=== PATIENT | female | born 1970 | race Caucasian/White ===

== ENCOUNTER 2016-05-03 15:18 | Emergency (ER) | payer MEDICAID ==
[2016-05-03] MEDS ORDERED: ONDANSETRON ODT 4 MG TABLET TL STA (16:09)
[2016-05-03] MEDS ORDERED: oxyCOD/ACETAMIN 5 MG/325 MG TABLET PO STA (16:09)
[2016-05-03] MEDS ORDERED: oxyCOD/ACETAMIN 5 MG/325 MG TABLET PO ONE (16:17)
[2016-05-03] MEDS ORDERED: ONDANSETRON ODT 4 MG TABLET ONE (16:17)
== END 2016-05-03 17:12 | disposition home or self-care (01) ==
DX: R10.13 Epigastric pain (principal); R10.12 Left upper quadrant pain; K92.1 Melena; Z87.19 Personal history of other diseases of the digestive system; Z90.49 Acquired absence of other specified parts of digestive tract; Z90.710 Acquired absence of both cervix and uterus; F17.200 Nicotine dependence, unspecified, uncomplicated
CPT/HCPCS: 36415; 80053; 83690; 85025; 99283; 99284; A9270; Q0162

== ENCOUNTER 2016-07-16 18:24 | Emergency (ER) | payer MEDICAID ==
[2016-07-16] MEDS ORDERED: HYDROcod/ACET 5/325 Prepack 6 PO STA (20:48)
[2016-07-16] MEDS ORDERED: HYDROcod/ACET 5/325 Prepack 6 PO ONE (20:50)
== END 2016-07-16 20:56 | disposition home or self-care (01) ==
DX: S30.1XXA Contusion of abdominal wall, initial encounter (principal); W22.03XA Walked into furniture, initial encounter; J45.909 Unspecified asthma, uncomplicated; Z87.19 Personal history of other diseases of the digestive system; Z87.442 Personal history of urinary calculi; F17.200 Nicotine dependence, unspecified, uncomplicated

== ENCOUNTER 2016-07-19 20:15 | Emergency (ER) | payer MEDICAID ==
[2016-07-19 20:37] VITALS: BP 113/73
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
[2016-07-19 21:15] LABS: BASOPHILS # (AUTO) 0.1 10^3/uL (0.0-0.1); EOSINOPHILS # (AUTO) 0.2 10^3/uL (0.0-0.7); EOSINOPHILS % (AUTO) 2.8 %; HCT - HEMATOCRIT 39.6 % (37.0-47.0); HGB - HEMOGLOBIN 13.3 g/dL (12.0-16.0); LYMPHOCYTES # (AUTO) 3.4 10^3/uL (1.5-3.5); LYMPHOCYTES % (AUTO) 49.5 %; MEAN CORPUSCULAR HEMOGLOBIN 27.2 pg (27.0-31.0); MEAN CORPUSCULAR HGB CONC 33.6 g/dL (32.0-36.0); MEAN CORPUSCULAR VOLUME 81.1 fL (81.0-99.0); MEAN PLATELET VOLUME 9.7 fL (7.9-10.8); MONOCYTES # (AUTO) 0.5 10^3/uL (0.0-1.0); MONOCYTES % (AUTO) 8.1 %; NEUTROPHILS # (AUTO) 2.6 10^3/uL (1.5-6.6); NEUTROPHILS % (AUTO) 38.6 %; NUCLEATED RED BLOOD CELLS AUTO 0.1 /100WBC; RED BLOOD COUNT 4.88 10^6/uL (4.20-5.40); RED CELL DISTRIBUTION WIDTH 14.7 % (12.0-15.0); UNCORRECTED WHITE BLOOD COUNT 6.8 x10^3/uL; WHITE BLOOD COUNT 6.8 x10^3/uL (4.8-10.8)
[2016-07-19 21:25] LABS: ALBUMIN/GLOBULIN RATIO 1.3 (1.0-2.2); BILIRUBIN,TOTAL 0.4 mg/dL (0.2-1.0); CALCIUM 8.9 mg/dL (8.5-10.3); CREATININE 0.7 mg/dL (0.4-1.0); POTASSIUM 3.7 mmol/L (3.5-5.0); TOTAL PROTEIN 6.6 g/dL (6.7-8.2)
[2016-07-19] MEDS ORDERED: oxyCOD/ACETAMIN 5 MG/325 MG TABLET PO STA (21:32)
[2016-07-19] MEDS ORDERED: oxyCOD/ACETAMIN 5 MG/325 MG TABLET PO ONE (21:35)
[2016-07-19] MEDS ORDERED: HYDROcod/ACETAM 5/325 MG TABLET PO STA (21:46)
[2016-07-19] MEDS ORDERED: HYDROcod/ACETAM 5/325 MG TABLET ONE (21:49)
== END 2016-07-19 22:06 | disposition home or self-care (01) ==
LOC: ED 20:15
DX: R10.11 Right upper quadrant pain (principal); S30.1XXA Contusion of abdominal wall, initial encounter; W22.03XA Walked into furniture, initial encounter; F17.200 Nicotine dependence, unspecified, uncomplicated
CPT/HCPCS: 36415; 80053; 83690; 85025; 99283; A9270

== ENCOUNTER 2016-09-13 13:13 | Outpatient (CLI) | payer MEDICAID ==
--- NOTE | 2016-09-13 15:29 | XRAY Report ---
TWO VIEW CHEST: 09/13/2016 CLINICAL INDICATION: Wheezing, smoking history. COMPARISON: 03/16/2007. FINDINGS: Frontal and lateral views of the chest demonstrate a normal cardiac silhouette. The lungs are clear. No effusion or pneumothorax is present. IMPRESSION: NORMAL CHEST. JOB #: [id number] EXT JOB #:[id number]
== END 2016-09-13 13:14 | disposition home or self-care (01) ==
LOC: DI.N 13:13
PROVIDERS: ATTEND Physician Assistant
DX: R06.02 Shortness of breath (principal); F17.210 Nicotine dependence, cigarettes, uncomplicated
CPT/HCPCS: 71020

== ENCOUNTER 2016-11-20 13:57 | Outpatient (CLI) | payer MEDICAID ==
[2016-11-20 19:02] LABS: BASOPHILS # (AUTO) 0.1 10^3/uL (0.0-0.1); BASOPHILS % (AUTO) 0.5 %; EOSINOPHILS # (AUTO) 0.2 10^3/uL (0.0-0.7); EOSINOPHILS % (AUTO) 1.9 %; HCT - HEMATOCRIT 44.7 % (37.0-47.0); HGB - HEMOGLOBIN 14.8 g/dL (12.0-16.0); LYMPHOCYTES # (AUTO) 3.6 10^3/uL (1.5-3.5); LYMPHOCYTES % (AUTO) 34.9 %; MEAN CORPUSCULAR HEMOGLOBIN 27.2 pg (27.0-31.0); MEAN CORPUSCULAR HGB CONC 33.2 g/dL (32.0-36.0); MEAN PLATELET VOLUME 10.2 fL (7.9-10.8); MONOCYTES # (AUTO) 0.8 10^3/uL (0.0-1.0); MONOCYTES % (AUTO) 7.8 %; NEUTROPHILS # (AUTO) 5.6 10^3/uL (1.5-6.6); NEUTROPHILS % (AUTO) 54.9 %; NUCLEATED RED BLOOD CELLS AUTO 0.1 /100WBC; RED BLOOD COUNT 5.46 10^6/uL (4.20-5.40); UNCORRECTED WHITE BLOOD COUNT 10.3 x10^3/uL; WHITE BLOOD COUNT 10.3 x10^3/uL (4.8-10.8)
[2016-11-20 19:24] LABS: ALBUMIN/GLOBULIN RATIO 1.5 (1.0-2.2); BILIRUBIN,TOTAL 0.9 mg/dL (0.2-1.0); BUN - BLOOD UREA NITROGEN 11 mg/dL (6-20); CALCIUM 9.4 mg/dL (8.5-10.3); CARBON DIOXIDE - CO2 25 mmol/L (21-32); CHLORIDE 106 mmol/L (101-111); CHOL/HDL RATIO 7.2 (<4.4); CHOLESTEROL 295 mg/dL; CREATININE 0.8 mg/dL (0.4-1.0); GFR - MDRD 78 (>89); GLUCOSE 95 mg/dL (70-100); HDL CHOLESTEROL 41 mg/dL; LDL/HDL RATIO 5.4 (<4.4); SODIUM 138 mmol/L (135-145); TOTAL PROTEIN 7.8 g/dL (6.7-8.2); TRIGLYCERIDES 158 mg/dL; VLDL CHOLESTEROL 32 mg/dL
== END 2016-11-20 13:58 | disposition home or self-care (01) ==
LOC: LAB.N 13:57
PROVIDERS: ATTEND Family Medicine
DX: F17.210 Nicotine dependence, cigarettes, uncomplicated (principal); K92.2 Gastrointestinal hemorrhage, unspecified; K51.90 Ulcerative colitis, unspecified, without complications
CPT/HCPCS: 36415; 80053; 80061; 85025

== ENCOUNTER 2017-01-21 13:17 | Emergency (ER) | payer MEDICAID ==
[2017-01-21] MEDS ORDERED: DEXAMETHASONE 10 MG/ML VIAL IVP STA (14:54)
[2017-01-21] MEDS ORDERED: diphenhydrAMINE INJ 50 MG/ML VIAL IVP STA (14:54)
[2017-01-21] MEDS ORDERED: FAMOTIDINE 20 MG/50 ML 50 ML IV ONE ×2 (14:54→15:02)
--- NOTE | 2017-01-21 14:55 | ED Physician Documentation ---
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 now she feels tight throat and SOA also recent cough fever and now residual soa since trip to [facility] no leg swelling Review of Systems Constitutional: reports: Fever (better now) Cardiac: denies: Chest pain / pressure Respiratory: reports: Dyspnea, Cough GI: denies: Abdominal Pain, Nausea, Vomiting : denies: Now EGA (not now) Musculoskeletal: denies: Extremity swelling Neurologic: denies: Generalized weakness Endocrine: denies: Easy bruising / bleeding Immunocompromised: denies: Immunocompromised PD PAST MEDICAL HISTORY - Past Medical History Cardiovascular: Other Respiratory: Asthma Neuro: Headache/migraine Endocrine/Autoimmune: None GI: Pancreatitis, Diverticulitis, Ulcerative colitis, Other : Kidney stones HEENT: None Psych: Anxiety, Bipolar disorder, Panic attacks, Claustrophobia Musculoskeletal: Osteoporosis Derm: None - Past Surgical History Past Surgical History: Yes General: Cholecystectomy, Appendectomy, Colonoscopy, EGD 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, 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 - Present Medications Home Medications: Ambulatory Orders Medication Instructions Recorded Confirmed Omeprazole [PriLOSEC] 20 mg PO BID 05/03/16 01/21/17 Promethazine [Phenergan] 25 mg PO Q4HR PRN 05/03/16 Cetirizine [ZyrTEC] 10 mg PO DAILY #3 tablet 01/21/17 predniSONE [Deltasone] 60 mg PO DAILY 3 Days tablet 01/21/17 - Allergies Allergies/Adverse Reactions: Allergies Allergy/AdvReac Type Severity Reaction Status Date / Time latex Allergy Mild Rash Verified 01/21/17 13:24 codeine [Codeine] Allergy Hives Verified 01/21/17 13:24 morphine Allergy Hives Verified 01/21/17 13:24 Penicillins Allergy Hives Verified 01/21/17 13:24 Sulfa (Sulfonamide Allergy Hives Verified 01/21/17 13:24 Antibiotics) aspirin AdvReac stomach Verified 01/21/17 13:24 sensitivity IV contrast Allergy anaphylaxis Uncoded 07/16/16 18:29 - Social History Does the pt smoke?: Yes Smoking Status: Current every day smoker Does the pt drink ETOH?: No Does the pt have substance abuse?: No - Immunizations Immunizations are current?: Yes - POLST Patient has POLST: No PD ED PE NORMAL - Vitals Vital signs reviewed: Yes - HEENT HEENT: Other (no oral edema) - Neck Neck: Supple, no meningeal sign - Cardiac Cardiac: RRR - Respiratory Respiratory: No respiratory distress, Other (no wheeze) - Abdomen Abdomen: Soft, Non tender - Derm Derm: Normal color, Other (no hives) - Extremities Extremities: No deformity, Normal ROM s pain, No edema, No calf tenderness / cord - Neuro Neuro: Alert and oriented X 3 Results - Vitals Vitals: Vital Signs - 24 hr 01/21/17 01/21/17 13:20 15:59 Temperature 36.7 C Heart Rate 90 61 Respiratory 22 16 Rate Blood Pressure 113/74 100/66 O2 Saturation 98 97 Oxygen O2 Source Room air - Rads (name of study) CXR Radiology: See rad report (NACPD) PD MEDICAL DECISION MAKING - ED course ED course: no lip tongue uvual edema no wheeze or stridor - so started with ebnadryl dex pepcid - no epi at this time also CXR for recent fever cough pt better with meds Departure - Departure Disposition: 01 Home, Self Care Clinical Impression: Allergic reaction Qualifiers: Encounter type: initial encounter Qualified Code(s): T78.40XA - Allergy, unspecified, initial encounter URI (upper respiratory infection) Qualifiers: URI type: unspecified viral URI Qualified Code(s): J06.9 - Acute upper respiratory infection, unspecified; B97.89 - Other viral agents as the cause of diseases classified elsewhere; B97.89 - Other viral agents as the cause of diseases classified elsewhere Condition: Good Instructions: ED Allergic Reaction General Other Prescriptions: Cetirizine [ZyrTEC] 10 mg PO DAILY #3 tablet predniSONE [Deltasone] 60 mg PO DAILY 3 Days tablet Comments: The chest xray was fine. Recommend you take the zyrtec and prednisone for three more days Always carry your epi pen Return if worse
[2017-01-21] MEDS ORDERED: diphenhydrAMINE INJ 50 MG/ML VIAL ONE (15:02)
[2017-01-21] MEDS ORDERED: DEXAMETHASONE 10 MG/ML VIAL ONE (15:02)
[2017-01-21] MEDS ORDERED: SODIUM CHLORIDE 0.9% 1,000 ML IV ONE (15:10)
--- NOTE | 2017-01-21 16:07 | XRAY Preliminary Report ---
Exam: XR CHEST 2 VIEW PA/LAT IMPRESSION: Stable, unremarkable exam. RADI SITE ID: [id number]
--- NOTE | 2017-01-21 16:15 | XRAY Report ---
EXAM: CHEST RADIOGRAPHY EXAM DATE: 01/21/2017 03:36 PM. CLINICAL HISTORY: Chronic cough. Recent shortness of breath and fever. COMPARISON: 09/13/2016. TECHNIQUE: 2 views. FINDINGS: Lungs/Pleura: Minimal scarring left base. No new focal opacities evident. No pleural effusion. No pne umothorax. Normal volumes. Mediastinum: Heart and mediastinal contours are unremarkable. Other: Cholecystectomy. IMPRESSION: Stable, unremarkable exam. [facility] Referring Provider Line: [phone] SITE ID: [id number]
[2017-01-21 17:24] VITALS: BP 128/66
== END 2017-01-21 17:22 | disposition home or self-care (01) ==
LOC: ED 13:17
DX: J30.81 Allergic rhinitis due to animal (cat) (dog) hair and dander (principal); J06.9 Acute upper respiratory infection, unspecified; B97.89 Other viral agents as the cause of diseases classified elsewhere; F17.200 Nicotine dependence, unspecified, uncomplicated
CPT/HCPCS: 71020; 96361; 96365; 96375; 99283; 99284

== ENCOUNTER 2017-03-04 17:13 | Outpatient (CLI) | payer MEDICAID ==
--- NOTE | 2017-03-06 12:23 | Ultrasound Report ---
DATE OF SERVICE: 03/04/2017 RIGHT UPPER QUADRANT ULTRASOUND: 03/04/2017 CLINICAL INDICATION: Right upper quadrant pain. COMPARISON: CT 07/16/2016. TECHNIQUE: Real-time scanning was performed with customer service representative teacher static images obtained. FINDINGS: The liver measures 13.9 cm. Hepatic echotexture is normal. No intrahepatic biliary dilatation is present. The common bile duct measures 8 mm. The patient is status post cholecystectomy. The right kidney measures 9.8 cm, and demonstrates no hydronephrosis. No free fluid is present. In the right upper quadrant, just superior to the patient's cholecystectomy scar is a likely small hernia, with neck measuring 4 mm. No bowel herniation was identified. This site did correlate with the patient's region of maximal tenderness. IMPRESSION: Likely tiny anterior abdominal wall hernia just superior to the patient's cholecystectomy scar in the right upper quadrant. No evidence of focal liver lesion or biliary dilatation. TD: 03/05/2017 09:48 ARACELY
== END 2017-03-04 17:14 | disposition home or self-care (01) ==
LOC: DI 17:13
PROVIDERS: ATTEND Family Medicine
DX: R19.01 Right upper quadrant abdominal swelling, mass and lump (principal); R10.11 Right upper quadrant pain
CPT/HCPCS: 76705

== ENCOUNTER 2017-05-02 14:56 | Emergency (ER) | payer MEDICAID ==
[2017-05-02] MEDS ORDERED: DEXAMETHASONE 10 MG/ML VIAL IM STA (15:23)
[2017-05-02] MEDS ORDERED: EPINEPHrine 1 MG/ML AMP IM STA (15:23)
--- NOTE | 2017-05-02 15:29 | ED Physician Documentation ---
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 She had mild facial swelling last night and today had more shortness of breath and facial swelling and rash which somewhat improved after home administration of Benadryl.) Review of Systems Constitutional: denies: Fever, Chills Nose: denies: Rhinorrhea / runny nose, Congestion Throat: denies: Sore throat Cardiac: denies: Chest pain / pressure, Palpitations Respiratory: denies: Dyspnea, Cough PD PAST MEDICAL HISTORY - Past Medical History Cardiovascular: Other Respiratory: Asthma Neuro: Headache/migraine Endocrine/Autoimmune: None GI: Pancreatitis, Diverticulitis, Ulcerative colitis, Other : Kidney stones HEENT: None Psych: Anxiety, Bipolar disorder, Panic attacks, Claustrophobia Musculoskeletal: Osteoporosis Derm: None - Past Surgical History Past Surgical History: Yes General: Cholecystectomy, Appendectomy, Colonoscopy, EGD 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, 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 - Present Medications Home Medications: Ambulatory Orders Medication Instructions Recorded Confirmed Omeprazole [PriLOSEC] 20 mg PO BID 05/03/16 01/21/17 Promethazine [Phenergan] 25 mg PO Q4HR PRN 05/03/16 Cetirizine [ZyrTEC] 10 mg PO DAILY #3 tablet 01/21/17 predniSONE [Deltasone] 60 mg PO DAILY 3 Days tablet 01/21/17 predniSONE [Deltasone] 60 mg PO DAILY 5 Days tablet 05/02/17 - Allergies Allergies/Adverse Reactions: Allergies Allergy/AdvReac Type Severity Reaction Status Date / Time latex Allergy Mild Rash Verified 01/21/17 13:24 codeine [Codeine] Allergy Hives Verified 01/21/17 13:24 morphine Allergy Hives Verified 01/21/17 13:24 Penicillins Allergy Hives Verified 01/21/17 13:24 Sulfa (Sulfonamide Allergy Hives Verified 01/21/17 13:24 Antibiotics) aspirin AdvReac stomach Verified 01/21/17 13:24 sensitivity IV contrast Allergy anaphylaxis Uncoded 07/16/16 18:29 - Social History Does the pt smoke?: Yes Smoking Status: Current every day smoker Does the pt drink ETOH?: No Does the pt have substance abuse?: No - Immunizations Immunizations are current?: Yes - POLST Patient has POLST: No PD ED PE NORMAL - Vitals Vital signs reviewed: Yes - General General: Alert and oriented X 3, No acute distress - HEENT HEENT: PERRL, EOMI, Pharynx benign - Neck Neck: Supple, no meningeal sign, No bony TTP - Cardiac Cardiac: RRR, No murmur - Respiratory Respiratory: No respiratory distress, Clear bilaterally - Abdomen Abdomen: Non tender - Derm Derm: No rash - Neuro Neuro: Alert and oriented X 3, Normal speech - Psych Psych: Normal mood, Normal affect Results - Vitals Vitals: Vital Signs - 24 hr 05/02/17 05/02/17 05/02/17 15:07 16:01 16:36 Temperature 36.6 C Heart Rate 81 90 89 Respiratory 24 22 16 Rate Blood Pressure 113/74 102/89 H 116/71 O2 Saturation 99 97 99 05/02/17 17:27 Temperature 35.7 C L Heart Rate 83 Respiratory 22 Rate Blood Pressure 107/65 O2 Saturation 95 Oxygen O2 Source Room air PD MEDICAL DECISION MAKING - ED course ED course: 46-year-old woman with mild feline related anaphylaxis. She was administered epinephrine and dexamethasone IM here and observed for several hours with resolution of her symptoms. Counseled to avoid cats Departure - Departure Disposition: 01 Home, Self Care Clinical Impression: Allergic reaction Qualifiers: Encounter type: initial encounter Qualified Code(s): T78.40XA - Allergy, unspecified, initial encounter Condition: Good Record reviewed to determine appropriate education?: Yes Instructions: ED Allergic Reaction General Other Prescriptions: predniSONE [Deltasone] 60 mg PO DAILY 5 Days tablet Comments: Call your doctor to arrange a follow-up appointment, make the next available appointment. In the interim, return anytime if worse or if new symptoms develop. Discharge Date/Time: 05/02/17 17:31
[2017-05-02 17:28] VITALS: BP 107/65
== END 2017-05-02 17:31 | disposition home or self-care (01) ==
LOC: ED 14:56
DX: T78.40XA Allergy, unspecified, initial encounter (principal); F17.200 Nicotine dependence, unspecified, uncomplicated; Z91.048 Other nonmedicinal substance allergy status
CPT/HCPCS: 96372; 99283

== ENCOUNTER 2017-05-04 23:55 | Observation (INO) | payer MEDICAID ==
--- NOTE | 2017-05-05 00:01 | ED Physician Documentation ---
History of Present Illness - Stated complaint Stated Complaint: CP,ABD PN,DIFFICULTY BREATHING - History obtained from History obtained from: Patient - History of Present Illness Timing: How many days ago (1-2) Pain level now: 5 Improved by: no ameliorating factors Worsened by: PO intake (not tolerating PO; attempts to take PO tonight resulted in N/V and worsening of abdominal pain) - Additonal information Additional information: T+R 3 days ago from this ED for allergic reaction to cats (this was a known allergy), was dyspneic but responded well to IM epinephrine and decadron. She presents at this time for nausea, vomiting, RUQ and low chest pain, and dyspnea. Review of Systems Constitutional: reports: Reviewed and negative Cardiac: reports: Chest pain / pressure. denies: Palpitations, Pedal edema, Calf pain Respiratory: reports: Dyspnea. denies: Cough, Wheezing GI: reports: Abdominal Pain, Nausea, Vomiting. denies: Constipation, Diarrhea : denies: Dysuria, Frequency Skin: reports: Reviewed and negative Musculoskeletal: reports: Reviewed and negative Neurologic: reports: Reviewed and negative PD PAST MEDICAL HISTORY - Past Medical History Cardiovascular: Other Respiratory: Asthma Neuro: Headache/migraine Endocrine/Autoimmune: None GI: Pancreatitis, Diverticulitis, Ulcerative colitis, Other : Kidney stones HEENT: None Psych: Anxiety, Bipolar disorder, Panic attacks, Claustrophobia Musculoskeletal: Osteoporosis Derm: None - Past Surgical History Past Surgical History: Yes General: Cholecystectomy, Appendectomy, Colonoscopy, EGD Ortho: Other /PRIMER CHARGER: Hysterectomy, Oophrectomy - Present Medications Home Medications: Ambulatory Orders Medication Instructions Recorded Confirmed Omeprazole [PriLOSEC] 20 mg PO BID 05/03/16 01/21/17 Promethazine [Phenergan] 25 mg PO Q4HR PRN 05/03/16 Cetirizine [ZyrTEC] 10 mg PO DAILY #3 tablet 01/21/17 predniSONE [Deltasone] 60 mg PO DAILY 3 Days tablet 01/21/17 predniSONE [Deltasone] 60 mg PO DAILY 5 Days tablet 05/02/17 - Allergies Allergies/Adverse Reactions: Allergies Allergy/AdvReac Type Severity Reaction Status Date / Time latex Allergy Mild Rash Verified 05/05/17 00:06 cat dander Allergy Anaphylaxis Verified 05/05/17 00:07 codeine [Codeine] Allergy Hives Verified 05/05/17 00:06 morphine Allergy Hives Verified 05/05/17 00:06 Penicillins Allergy Hives Verified 05/05/17 00:06 Sulfa (Sulfonamide Allergy Hives Verified 05/05/17 00:06 Antibiotics) aspirin AdvReac stomach Verified 05/05/17 00:06 sensitivity IV contrast Allergy anaphylaxis Uncoded 05/05/17 00:06 - Social History Does the pt smoke?: Yes Smoking Status: Current every day smoker Does the pt drink ETOH?: No Does the pt have substance abuse?: No - Immunizations Immunizations are current?: Yes - POLST Patient has POLST: No PD ED PE NORMAL - Vitals Vital signs reviewed: Yes - General General: Alert and oriented X 3, No acute distress, Well developed/nourished - HEENT HEENT: PERRL, EOMI, Other (tacky/pasty mucous membranes) - Neck Neck: Supple, no meningeal sign - Cardiac Cardiac: RRR, No murmur - Respiratory Respiratory: No respiratory distress, Clear bilaterally - Abdomen Abdomen: Soft, Non distended, Other (TTP diffusely without guarding or rebound) - Back Back: No CVA TTP - Derm Derm: Normal color, Warm and dry - Extremities Extremities: No edema Results - Vitals Vitals: Vital Signs - 24 hr 05/05/17 05/05/17 05/05/17 00:00 00:10 00:30 Temperature 36.3 C L Heart Rate 77 75 Respiratory 18 22 16 Rate Blood Pressure 131/71 H O2 Saturation 96 96 05/05/17 05/05/17 05/05/17 01:18 01:45 02:12 Temperature Heart Rate 77 73 73 Respiratory 16 16 Rate Blood Pressure 131/75 H 115/66 120/77 O2 Saturation 96 95 95 Oxygen O2 Source Room air - EKG (time done) No standard instances Rate: Rate (enter#) (81) Rhythm: NSR [place]: Normal Intervals: Normal [place] QRS: LVH Ischemia: Normal ST segments Other comments: Other comments (artifact simulating "sawtooth" p waves. This is not present on coin dealer) Computer interpretation: Disagree with computer (disagree with atrial fibrillation) - Labs Labs: Laboratory Tests 05/05/17 05/05/17 05/05/17 00:36 00:36 00:36 WBC 16.4 H RBC 4.97 Hgb 13.5 Hct 40.1 MCV 80.8 L MCH 27.2 MCHC 33.7 RDW 14.9 Plt Count 240 MPV 9.5 Neut # 10.5 H Lymph # 4.3 H [place] # 1.4 H Eos # 0.1 Baso # 0.2 H Absolute Nucleated RBC 0.00 Nucleated RBC % 0.0 D-Dimer 211.8 Sodium 137 Potassium 3.2 L Chloride 107 Carbon Dioxide 21 Anion Gap 9.0 BUN 10 Creatinine 0.8 Estimated GFR (MDRD) 78 L Glucose 107 H Calcium 9.1 Total Bilirubin 0.5 AST 22 ALT 21 Alkaline Phosphatase 71 Troponin I Total Protein 7.1 Albumin 4.0 Globulin 3.1 Albumin/Globulin Ratio 1.3 Lipase 17 L Urine Color Urine Clarity Urine pH Ur Specific [place] Urine Protein Urine Glucose (UA) Urine Ketones Urine Occult Blood Urine Nitrite Urine Bilirubin Urine Urobilinogen Ur Leukocyte Esterase Urine RBC Urine WBC Ur Squamous Epith Cells Urine Bacteria Ur Microscopic Review Urine Culture Comments 05/05/17 05/05/17 00:36 01:11 WBC RBC Hgb Hct MCV MCH MCHC RDW Plt Count MPV Neut # Lymph # [place] # Eos # Baso # Absolute Nucleated RBC Nucleated RBC % D-Dimer Sodium Potassium Chloride Carbon Dioxide Anion Gap BUN Creatinine Estimated GFR (MDRD) Glucose Calcium Total Bilirubin AST ALT Alkaline Phosphatase Troponin I < 0.04 Total Protein Albumin Globulin Albumin/Globulin Ratio Lipase Urine Color YELLOW Urine Clarity CLEAR Urine pH 7.0 Ur Specific [place] <=1.005 Urine Protein NEGATIVE Urine Glucose (UA) NEGATIVE Urine Ketones NEGATIVE Urine Occult Blood NEGATIVE Urine Nitrite NEGATIVE Urine Bilirubin NEGATIVE Urine Urobilinogen 0.2 (NORMAL) Ur Leukocyte Esterase TRACE H Urine RBC None Seen Urine WBC 0-3 Ur Squamous Epith Cells NONE SEEN Urine Bacteria None Seen Ur Microscopic Review INDICATED Urine Culture Comments INDICATED - Rads (name of study) CT A/P Radiology: Prelim report reviewed, See rad report PD MEDICAL DECISION MAKING - ED course Complexity details: reviewed old records, reviewed results, re-evaluated patient , considered differential, d/w patient ED course: Patient declined pain medication repeatedly, says that, generally, strong pain medication has always made her pain worse. She asked for "something very mild", and I offered toradol which she accepts. She had taken 50mg phenergan PO HOP STRAINER without relief of her nausea, and given 12.5mg IV phenergan here. On reevaluation, after tests resulted, she says she still has significant nausea and had vomited again since I was last in room. She says her pain has improved. I recommended GI cocktail, but she says she is too nauseas to try anything PO. Given IV zofran and IV fluids, will admit for further IV hydration and PRN antinauseants. There is a chronic component to much of her symptoms (it is unclear if some or all of her symptoms are recurrent), and I explained to her that if she cannot keep anything down, it would be reasonable at this point to admit her to the hospital, but that achieving a diagnosis/etiology is not a realistic goal for this admission, given the chronicity and extensive testing she describes has happened in the past. Admission would be for symptom control; she expresses understanding of this to me. Departure - Departure Disposition: ED Place in Observation Clinical Impression: Vomiting Abdominal pain Qualifiers: Abdominal location: generalized Qualified Code(s): R10.84 - Generalized abdominal pain Condition: Stable Discharge Date/Time: 05/05/17 04:25
[2017-05-05] MEDS ORDERED: IPRATROPIUM/ALBUTEROL 3 ML NEB INH ONE (00:10)
[2017-05-05] MEDS ORDERED: IPRATROPIUM/ALBUTEROL 3 ML NEB INH STA (00:26)
[2017-05-05 00:48] LABS: BASOPHILS # (AUTO) 0.2 10^3/uL (0.0-0.1); BASOPHILS % (AUTO) 0.9 %; EOSINOPHILS # (AUTO) 0.1 10^3/uL (0.0-0.7); EOSINOPHILS % (AUTO) 0.4 %; HGB - HEMOGLOBIN 13.5 g/dL (12.0-16.0); LYMPHOCYTES # (AUTO) 4.3 10^3/uL (1.5-3.5); LYMPHOCYTES % (AUTO) 26.3 %; MEAN CORPUSCULAR HEMOGLOBIN 27.2 pg (27.0-31.0); MEAN CORPUSCULAR HGB CONC 33.7 g/dL (32.0-36.0); MEAN CORPUSCULAR VOLUME 80.8 fL (81.0-99.0); MEAN PLATELET VOLUME 9.5 fL (7.9-10.8); MONOCYTES # (AUTO) 1.4 10^3/uL (0.0-1.0); MONOCYTES % (AUTO) 8.4 %; NEUTROPHILS # (AUTO) 10.5 10^3/uL (1.5-6.6); PLT - PLATELET COUNT 240 10^3/uL (130-450); RED BLOOD COUNT 4.97 10^6/uL (4.20-5.40); RED CELL DISTRIBUTION WIDTH 14.9 % (12.0-15.0); WHITE BLOOD COUNT 16.4 x10^3/uL (4.8-10.8)
[2017-05-05 00:52] LABS: ALBUMIN/GLOBULIN RATIO 1.3 (1.0-2.2); BILIRUBIN,TOTAL 0.5 mg/dL (0.2-1.0); CALCIUM 9.1 mg/dL (8.5-10.3); CREATININE 0.8 mg/dL (0.4-1.0); TOTAL PROTEIN 7.1 g/dL (6.7-8.2)
[2017-05-05 01:21] LABS: BILIRUBIN,URINE NEGATIVE (NEGATIVE); GLUCOSE, URINE (UA) NEGATIVE (NEGATIVE); KETONES,URINE (UA) NEGATIVE (NEGATIVE); LEUKOCYTE ESTERASE, URINE TRACE (NEGATIVE); NITRITE,URINE NEGATIVE (NEGATIVE); OCCULT BLOOD,URINE NEGATIVE (NEGATIVE); PROTEIN,URINE NEGATIVE (NEGATIVE); UROBILINOGEN,URINE 0.2 (NORMAL) E.U./dL (NORMAL)
[2017-05-05 01:25] LABS: CLARITY,URINE CLEAR (CLEAR)
[2017-05-05 01:51] LABS: BACTERIA,URINE None Seen /HPF (None Seen); RBC,URINE None Seen /HPF (0-5); SQUAMOUS EPITHELIAL CELL,UR NONE SEEN (<= Few)
[2017-05-05] MEDS ORDERED: PROMETHAZINE INJ 12.5 MG in SODIUM CHLORIDE 0.9% 50 ML IV STA (02:14)
--- NOTE | 2017-05-05 02:46 | CT Report ---
EXAM: CT ABDOMEN AND PELVIS EXAM DATE: 05/05/2017 02:34 AM. CLINICAL HISTORY: Abdominal pain. COMPARISONS: 07/16/2016. TECHNIQUE: Routine helical CT imaging was performed through the abdomen and pelvis. IV contrast: None . Enteric contrast: No. Reconstructions: Coronal and sagittal. In accordance with CT protocol optimization, one or more of the following dose reduction techniques w ere utilized for this exam: automated exposure control, adjustment of mA and/or KV based on patient s ize, or use of iterative reconstructive technique. FINDINGS: Lung Bases: Unremarkable. Liver: No focal lesion identified on this noncontrast examination. Gallbladder/Bile Ducts: Status post cholecystectomy. Spleen: Normal. Pancreas: Normal. Adrenal Glands: Normal. Kidneys: Right kidney is unremarkable. Nonobstructing 8 x 6 mm stone in the left kidney. Peritoneal Cavity/Bowel: Colonic diverticula without evidence of diverticulitis. Moderate stool in th e colon. No bowel obstruction seen. No free air or free fluid. No lymphadenopathy. Appendix is not se en. No evidence of appendicitis. Pelvic Organs: Uterus is not seen. Visualized pelvic organs are otherwise unremarkable. Vasculature: No aneurysms or other significant abnormality. Bones: No significant abnormality. Other: None. IMPRESSION: 1. No acute inflammatory or obstructive process seen in the abdomen or pelvis. 2. Nonobstructing 8 x 6 mm left renal stone. [facility] Referring Provider Line: [phone] SITE ID: [id number]
--- NOTE | 2017-05-05 02:46 | CT Preliminary Report ---
Exam: CT ABDOMEN/PELVIS W/O IMPRESSION: 1. No acute inflammatory or obstructive process seen in the abdomen or pelvis. 2. Nonobstructing 8 x 6 mm left renal stone. [facility] SITE ID: [id number]
[2017-05-05] MEDS ORDERED: SODIUM CHLORIDE 0.9% 1,000 ML IV STA (03:33)
[2017-05-05] MEDS ORDERED: ONDANSETRON 4 MG/2 ML VIAL IVP STA (03:33)
[2017-05-05] MEDS ORDERED: KETOROLAC 60 MG/2 ML VIAL IVP STA (03:45)
[2017-05-05] MEDS ORDERED: ALBUTEROL NEB 2.5 MG/3 ML INH PRN (03:48)
[2017-05-05] MEDS ORDERED: PROCHLORPERAZINE 10 MG/2 ML VIAL IVP PRN (03:49)
[2017-05-05] MEDS ORDERED: METOCLOPRAMIDE 10 MG/2 ML VIAL IVP PRN (03:49)
[2017-05-05] MEDS ORDERED: PANTOPRAZOLE 40 MG VIAL IVP SCH (05:00)
[2017-05-05] MEDS ORDERED: methylPREDNISolone SUCCINATE 40 MG/ML VIAL IVP SCH (05:00)
[2017-05-05] MEDS: SODIUM CHLORIDE 0.9% 1,000 ML IV SCH ×2 (05:34→09:11)
[2017-05-05] MEDS: SODIUM CHLORIDE FLUSH 0.9% 10 ML SYRINGE IVP PRN ×2 (05:42→05:45)
--- NOTE | 2017-05-05 07:05 | HISTORY & PHYSICAL EXAMINATION ---
DATE OF SERVICE: Physician: Miranda Olivarez MD PRIMARY CARE PROVIDER: Joaquin Romo MD FRONT OFFICE MEDICAL ASSISTANT: Dr. Huerta [facility] PROFESSIONAL: Through [facility]. ADMITTING PROVIDER: Miranda Olivarez MD CHIEF COMPLAINT: Epigastric pain with nausea and vomiting. HISTORY OF PRESENT ILLNESS: This middle-aged white female who has a long history of GI problems. Looking back in the medical record from [facility] dating to 2011, she has multiple encounters through the emergency room for abdominal pain, right upper quadrant abdominal pain, rectal bleeding, and nausea and vomiting. She has Phenergan at home on a regular basis and takes it every day. No clear etiology of her abdominal discomfort has ever been found. For her history of epigastric pain and rectal bleeding, she did undergo an EGD and colonoscopy 07/30/2013. Her gastric antrum biopsies were normal. The esophagus had minimal reflux esophagitis at the GE junction. Her terminal ileum was normal. She had a tubular adenoma in the bowel, but no high grade dysplasia and the rest of her bowel was completely normal. Imaging studies for this abdominal pain have been an abdomen and pelvis CT 09/28, 10/15/2013, 07/16/2016, abdominal ultrasound 03/04/2017, and a CT of the abdomen and pelvis [facility]. These have been all unremarkable other than she has a very large kidney stone on the left side, nonobstructing. She has diverticulosis, no itis. All other organs appear normal. Liver with without ductal dilatation. With this current episode she had just been recently seen in the emergency room for an allergic reaction to cats. She went to go babysit her granddaughter and they have a cat. She ended up being in the emergency room 2 days ago and received steroids and DuoNebs. She says that today, she began having severe agonizing epigastric abdominal pain that was nonradiating. This superimposed a new type of severe nausea on her chronic nausea. There has been no hematemesis. No melanotic stool. Because she was unable to control her nausea and vomiting and the pain was so severe, she came to the emergency room. She is adamant that she does not want pain medicine stronger than Toradol. Her labs are normal. Vital signs are normal. In spite of Phenergan in the emergency room with IV fluids, patient remains with severe nausea after 3 hours. We are now placing her in observation for control of this nausea and vomiting. PAST MEDICAL HISTORY 1. G8, P1. Status post total abdominal hysterectomy and oophorectomy. 2. Allergic asthma. 3. Headaches and migraine. 4. Chronic abdominal pain of numerous etiologies. She states that she has had pancreatitis, diverticulitis, ulcerative colitis in the past. However, recent colonoscopy disputes that via pathologic findings on 07/2013. CT of abdomen shows a normal pancreas without calcification. She is followed by Dr. Huerta of [facility], Gastroenterology. 5. History of nephrolithiasis. 6. History of anxiety, bipolar disorder, panic attacks, claustrophobia. She is followed by [facility]. She says that she does not take medications and she does this through lifestyle management and diet and focusing on good imagery. 7. Osteoporosis. PAST SURGICAL HISTORY 1. Status post cholecystectomy. 2. Status post appendectomy. ALLERGIES: SHE IS ALLERGIC TO 1. LATEX. 2. CODEINE. 3. MORPHINE. 4. PENICILLIN. 5. SULFA. 6. ASPIRIN. 7. IV CONTRAST. MEDICATIONS 1. Omeprazole 20 b.i.d. 2. Phenergan 25 mg p.o. q. 4 hours p.r.n. 3. She is on steroids and tapering Deltasone for her asthma for the last 2 days. SOCIAL HISTORY: She is a 1-1/2 pack per day pack smoker, started at the age of 14. She usually does 1 pack per day. Stopped 2 days ago because of the asthma. She has no history of alcohol abuse. She said she may have been binge drinking in her 20s, but she had no real pepe with that, so stopped somewhere in her early 20s. 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 She became disabled from her nausea and vomiting and psychiatric illness in 2004. She lives in a home with her father. It is his house. She is not always completely independent with activities of daily living. She says that she has frequent episodes of syncope, dizziness, and sometimes has to crawl to the bathroom or friends help her. She denies any history of recreational substance abuse. FAMILY HISTORY: Dad is 68 and has had bypass surgery, but has no history of hypertension, diabetes, psychiatric illness. Mom of anaphylaxis a few years ago and her siblings, one of them has diabetes. Her one daughter is healthy. REVIEW OF SYSTEMS CONSTITUTIONAL: She describes a generalized misery of chronic abdominal pain, nausea, intermittent rectal bleeding. Weight 64 kilos November 2012, 69 kilos 02/2015 , 64 kilos 01/2017 and 65 kilos this month. She denies sweats, fevers, chills. ENT: Occasional blurred vision, headaches, occasional numb mouth. PULMONARY: Wheezing is always related to allergies. Never had to be intubated for it. Never had to be on chronic medications for it. Denies phlegm production, fever, chills, chest congestion with this. CARDIOVASCULAR: Denies murmurs, heart disease, palpitations, orthopnea, and exercise tolerance is very poor to begin with, so she really cannot gauge. GASTROINTESTINAL: Positive as above. GENITOURINARY: Denies urgency, frequency, dysuria, hematuria. No vaginal discharge. JOINTS: Occasional aches and pains with stiffness in the morning, but nothing severe. No recent change in status. SKIN: Unchanged. No lesions or rashes. PSYCHIATRIC: Sees [facility] on a regular basis, counselor is Jeanette. Does not take medication. Denies suicidal ideation. 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 PHYSICAL EXAMINATION VITAL SIGNS: Temperature is 36.3, pulse of 66, blood pressure is 113/68, respirations 16, 97% on room air. GENERAL: She is a thin, drawn out looking, middle-aged female with a furrowed brow, circles under her eyes, pale. A friend of hers is at the bedside. NECK: Unremarkable other than mildly dry lips. Normal facial symmetry. Normal speech. Neck is supple. LUNGS: Clear to auscultation and percussion. There is no wheezing tonight. HEART: PMI normally placed with a regular rate and rhythm. ABDOMEN: Soft, normal bowel sounds. Nondistended. However, with even light touch of her anterior abdominal wall, she grimaces with pain, clenches her fist and becomes rigid as an ironing board during palpation of her belly. The pain is diffuse. No rebound. No masses. EXTREMITIES: Without clubbing, cyanosis or edema. There are no effusions of joints. NEUROLOGIC: She is alert and oriented to person, place and time. No focal deficits. Can follow 2-step commands. LABORATORY DATA: Sodium 137, potassium 3.2, BUN 10, creatinine 0.8, random glucose 107. Liver enzymes normal. Troponin less than 0.04. Review of her labs shows to have hypertriglyceridemia and hyperlipidemia, on 11/20/2016, with triglycerides 158, cholesterol 295, LDL 222. Review of all of her lipases in our emergency room from 2013 to now are normal. Cortisol response to ACTH is normal, 11/30/2015. Urinalysis is normal today. H pylori antibody negative 12/15/2013 and 01/29/2016. White cell count is elevated today at 16.4 on her steroids. Hemoglobin 13.5, hematocrit 40.1, platelets 240. CT of the abdomen and pelvis today shows normal gallbladder and bile ducts. Status post cholecystectomy. The spleen is normal. Pancreas is normal. Adrenal glands normal. She has a nonobstructing 8 x 6 mm stone in the left kidney. She has chronic diverticulosis without evidence of diverticulitis. Moderate stool in the bowel. Uterus is not seen. ASSESSMENT AND PLAN 1. Acute on chronic nausea and vomiting. Symptoms unable to be controlled in the emergency room. She has a long history of this complaint in the medical record. I do not think we are going to be able to offer any solutions to her chronic problem with this observation stay. That has been carefully explained to her. Nevertheless, we will provide her with Compazine, Reglan p.r.n. IV fluids. Attestation that she will be admitted for less than 96 hours. At 96 hours she will be evaluated for discharge or transfer. 2. Epigastric abdominal pain associated with nausea and vomiting. This is in a patient with chronic abdominal pain. Again, she has had an EGD, CTs of the abdomen, ultrasound. She had her gallbladder, appendix, and uterus taken out. Remote possibility that it is due from new gastritis secondary to steroids. Start her on proton pump inhibitors IV. No pain management at her request other than Tylenol or Toradol. 3. FULL CODE status. She states that if she does end up having significant cognitive deficits after resuscitation, she wants us to let her go. 4. Deep venous thrombosis prophylaxis will be compression stockings. TD: 05/05/2017 07:03 [facility]
[2017-05-05 07:57] VITALS: BP 106/62
[2017-05-05] MEDS ORDERED: ACETAMINOPHEN 325 MG TABLET PO PRN (08:20)
[2017-05-05] MEDS ORDERED: KETOROLAC 10 MG TABLET PO PRN (08:20)
[2017-05-05] MEDS ORDERED: SODIUM CHLORIDE FLUSH 0.9% 10 ML SYRINGE IVP SCH (09:00)
[2017-05-05] MEDS ORDERED: POLYETHYLENE GLYCOL 3350 17 GM PACKET PO SCH (09:00)
--- NOTE | 2017-05-05 11:54 | Discharge Plan ---
Discharge Plan Disposition: 01 Home, Self Care Condition: Good Diet: Regular Activity Restrictions: No Restrictions Shower Restrictions: No Driving Restrictions: No Weight Bearing: Full Weight Additional Instructions or Follow Up instructions: You were admitted for nausea and vomiting which as subsided. Please see your PCP in one week. No Smoking: If you smoke, Please STOP! Call for help. Follow-up with: Joaquin Romo MD [Primary Care Provider] -
--- NOTE | 2017-05-05 17:20 | DISCHARGE SUMMARY ---
Discharge Summary Admit Date: 05/04/17 Discharge Date: 05/05/17 Discharging Provider: CLARISA Henao Primary Care Provider: Joaquin Romo Code Status: Attempt Resuscitation Condition at Discharge: Good Discharge Disposition: 01 Home, Self Care - DIAGNOSES Admission Diagnoses: Nausea with vomiting, unspecified (R11.2) Nausea (R11.0) Epigastric pain (R10.13) Unspecified abdominal pain (R10.9) Discharge Diagnoses with Status of Each Condition: Nausea with vomiting, unspecified (R11.2) Nausea (R11.0) Epigastric pain (R10.13) Unspecified abdominal pain (R10.9) - HPI History of Present Illness: Laurel Stark is a 46-year old female with a past medical history of G8, P1 s/p hysterectomy and oophorectomy, asthma, headaches, migraines, chronic abdominal pain, diverticulitis, ulcerative colitis, nephrolithiasis, anxiety disorder, depression, bipolar, panic disorder, claustrophobia, and osteoporosis. Patient is known to have several ED visits. She presented this time for abdominal pain. She was watched overnight and sent home the next AM. This stay was uneventful. - ALLERGIES Allergies/Adverse Reactions: Allergies Allergy/AdvReac Type Severity Reaction Status Date / Time latex Allergy Mild Rash Verified 05/05/17 00:06 cat dander Allergy Anaphylaxis Verified 05/05/17 00:07 codeine [Codeine] Allergy Hives Verified 05/05/17 00:06 morphine Allergy Hives Verified 05/05/17 00:06 Penicillins Allergy Hives Verified 05/05/17 00:06 Sulfa (Sulfonamide Allergy Hives Verified 05/05/17 00:06 Antibiotics) aspirin AdvReac stomach Verified 05/05/17 00:06 sensitivity IV contrast Allergy anaphylaxis Uncoded 05/05/17 00:06 - MEDICATIONS Home Medications: Ambulatory Orders Medication Instructions Recorded Confirmed Omeprazole [PriLOSEC] 20 mg PO BID 05/03/16 05/05/17 Promethazine [Phenergan] 25 mg PO Q4HR PRN 05/03/16 05/05/17 Cetirizine [ZyrTEC] 10 mg PO DAILY #3 tablet 01/21/17 05/05/17 predniSONE [Deltasone] 60 mg PO DAILY 3 Days tablet 01/21/17 05/05/17 - PHYSICAL EXAM AT DISCHARGE General Appearance: positive: No acute distress, Alert, Anxious Eyes Bilateral: positive: Normal inspection, PERRL ENT: positive: ENT inspection nml Neck: positive: Nml inspection, No JVD, Trachea midline Respiratory: positive: Chest non-tender, No respiratory distress, Breath sounds nml Cardiovascular: positive: Regular rate & rhythm, No gallop, Decreased pulse(s) Peripheral Pulses: positive: 1+ Abdomen: positive: Tenderness, Guarding, Abnml bowel sounds Back: positive: Nml inspection Skin: positive: Color nml, No rash, Warm, Dry Extremities: positive: Non-tender, Full ROM, Nml appearance, No pedal edema Neurologic/Psychiatric: positive: Oriented x3, CN's nml (2-12), Motor nml, Sensation nml, Depressed mood/affect Reflexes: Bicep (R): 3+, Bicep (L): 3+ - LABS Result Diagrams: 05/05/17 00:36 05/05/17 00:36 - DIAGNOSTIC IMAGING Diagnostic Imaging Results: Final report reviewed Diagnostic Imaging Results Comments: EXAM: CT ABDOMEN AND PELVIS EXAM DATE: 05/05/2017 02:34 AM. CLINICAL HISTORY: Abdominal pain. COMPARISONS: 07/16/2016. TECHNIQUE: Routine helical CT imaging was performed through the abdomen and pelvis. IV contrast: None. Enteric contrast: No. Reconstructions: Coronal and sagittal. In accordance with CT protocol optimization, one or more of the following dose reduction techniques were utilized for this exam: automated exposure control, adjustment of mA and/or KV based on patient size, or use of iterative reconstructive technique. FINDINGS: Lung Bases: Unremarkable. Liver: No focal lesion identified on this noncontrast examination. Gallbladder/Bile Ducts: Status post cholecystectomy. Spleen: Normal. Pancreas: Normal. Adrenal Glands: Normal. Kidneys: Right kidney is unremarkable. Nonobstructing 8 x 6 mm stone in the left kidney. Peritoneal Cavity/Bowel: Colonic diverticula without evidence of diverticulitis. Moderate stool in the colon. No bowel obstruction seen. No free air or free fluid. No lymphadenopathy. Appendix is not seen. No evidence of appendicitis. Pelvic Organs: Uterus is not seen. Visualized pelvic organs are otherwise unremarkable. Vasculature: No aneurysms or other significant abnormality. Bones: No significant abnormality. Other: None. IMPRESSION: 1. No acute inflammatory or obstructive process seen in the abdomen or pelvis. 2. Nonobstructing 8 x 6 mm left renal stone. - FOLLOW UP Follow Up: Disposition: 01 Home, Self Care Condition: Good Diet: Regular Activity Restrictions: No Restrictions Shower Restrictions: No Driving Restrictions: No Weight Bearing: Full Weight Additional Instructions or Follow Up instructions: You were admitted for nausea and vomiting which as subsided. Please see your PCP in one week. - TIME SPENT Time Spent in Discharge (Minutes): 45
== END 2017-05-05 12:37 | disposition home or self-care (01) ==
LOC: ED 23:55 → OBS 05-05 03:46
PROVIDERS: ADMIT Specialist; ATTEND Nurse Practitioner
DX: R11.2 Nausea with vomiting, unspecified (principal); R10.13 Epigastric pain; N20.0 Calculus of kidney; Z87.442 Personal history of urinary calculi; J45.909 Unspecified asthma, uncomplicated; E78.5 Hyperlipidemia, unspecified; F17.210 Nicotine dependence, cigarettes, uncomplicated; F41.0 Panic disorder [episodic paroxysmal anxiety]; F31.9 Bipolar disorder, unspecified; F40.240 Claustrophobia; Z79.51 Long term (current) use of inhaled steroids; Z79.899 Other long term (current) drug therapy; E78.1 Pure hyperglyceridemia
CPT/HCPCS: 36415; 74176; 80053; 81001; 83690; 84484; 85025; 85379; 87086; 93005; 94640; 96361; 96365; 96375; 99284; G0378; J2765; J7040; J7620; 81003; 99285

== ENCOUNTER 2017-05-13 13:45 | Outpatient (CLI) | payer MEDICAID | END 2017-05-13 14:00 | disposition home or self-care (01) | LOC: RT.N 13:45 | PROVIDERS: ATTEND Family Medicine | DX: R07.89 Other chest pain (principal) | CPT/HCPCS: 93005 ==

== ENCOUNTER 2017-07-18 15:47 | Outpatient (CLI) | payer MEDICAID ==
--- NOTE | 2017-07-18 21:27 | XRAY Report ---
EXAM: RIGHT TOE RADIOGRAPHY EXAM DATE: 07/18/2017 03:55 PM. CLINICAL HISTORY: TOE PAIN, RIGHT. Right fifth toe. COMPARISON: Right foot 02/22/2016. TECHNIQUE: 3 views. FINDINGS: Tiny more chronic appearing bone fragment is seen at the lateral aspect of the distal fifth proximal phalanx. Tiny acute chip fracture is not excluded. Otherwise, no evidence for acute fracture. Minimal left fifth PIP osteoarthritis. Fifth digit soft tissue swelling could be present. Couple of screws a re again seen in the first metatarsal. No dislocation. IMPRESSION: Tiny more chronic appearing bone fragment is seen at the lateral aspect of the distal fif th proximal phalanx. Tiny acute chip fracture is not excluded. Otherwise, no evidence for acute fract ure. Minimal left fifth PIP osteoarthritis. Fifth digit soft tissue swelling could be present. [facility] Referring Provider Line: [phone] SITE ID: [id number]
== END 2017-07-18 15:48 | disposition home or self-care (01) ==
LOC: DI.N 15:47
PROVIDERS: ATTEND Family Medicine
DX: M79.674 Pain in right toe(s) (principal)
CPT/HCPCS: 73660

== ENCOUNTER 2017-08-06 13:14 | Outpatient (CLI) | payer MEDICAID ==
--- NOTE | 2017-08-10 11:08 | DEXA Report ---
DEXA: 08/06/2017 CLINICAL INDICATION: Osteoporosis. TECHNIQUE: Dual energy x-ray absorptiometry (DXA) was performed on a My [employer] system. Regions measured are the AP spine, femoral neck, and, if needed, forearm. COMPARISON: None. In accordance with the International Society for Clinical Densitometry (ISCD) guidelines, data from previous exams may be reanalyzed using current recommendations and techniques. This is done to allow a more accurate basis for comparison with the current study. FINDINGS Data for the lumbar spine is as follows: REGION BMD (g/cm/cm) T-SCORE Z-SCORE L1 0.805 -2.7 -2.7 L2 0.846 -2.9 -2.9 L3 0.862 -2.8 -2.8 L4 0.782 -3.5 -3.5 L1-L4 0.822 -3.0 -2.9 NOTE: All evaluable vertebrae are used for classification. The data for the hip is as follows: REGION BMD (g/cm/cm) T-SCORE Z-SCORE Neck 0.655 -2.8 -2.2 TOTAL 0.648 -2.9 -2.6 NOTE: The femoral neck or total proximal femur, whichever is lowest, is used for classification. IMPRESSION WHO CLASSIFICATION BASED ON THE INTERNATIONAL REFERENCE STANDARD IS OSTEOPOROSIS. FRACTURE RISK IS HIGH. RECOMMENDATION: Patients with diagnosis of osteoporosis or osteopenia should have regular bone mineral density assessment. For those eligible for Medicare, routine testing is allowed once every 2 years. Testing frequency can be increased for patients who have rapidly progressing disease or for those who are receiving medical therapy to restore bone mass. COMMENT World Health Organization (WHO) definitions for osteoporosis and osteopenia: NORMAL BMD: T-score at 1.0 or higher, fracture risk is low. OSTEOPENIA BMD: T-score between 1.0 and -2.5, fracture risk is increased. OSTEOPOROSIS BMD: T-score at 2.5 or lower, fracture risk high. National Osteoporosis Foundation recommends: 1. Obtain adequate dietary calcium (at least 1200 mg per day) and vitamin D (400 -800 international units per day). 2. Participate, as appropriate, in regular weightbearing and muscle- strengthening exercise. 3. Avoid tobacco use and reduce alcohol and caffeine intake. 4. For more detailed information see the website at www.NOF.org. TD: 08/06/2017 15:21 MTDVivek
== END 2017-08-06 13:15 | disposition home or self-care (01) ==
LOC: DI 13:14
PROVIDERS: ATTEND Family Medicine
DX: Z00.00 Encounter for general adult medical examination without abnormal findings (principal); M81.0 Age-related osteoporosis without current pathological fracture; M89.9 Disorder of bone, unspecified
CPT/HCPCS: 77080

== ENCOUNTER 2017-08-15 13:28 | Outpatient (CLI) | payer MEDICAID ==
--- NOTE | 2017-08-21 14:24 | Mammography Report ---
Procedure Date: 08/15/2017 Accession Number: [id number] / [id number] Procedure: MGN - Screening Mammo Dig Bilat CPT Code: FULL RESULT: EXAM: Screening Mammo Dig Bilat DATE: 08/15/2017 1:43 PM CLINICAL HISTORY: 47-year-old for screening TECHNIQUE: Bilateral CC and MLO views were obtained. COMPARISON: 08/29/2010, 04/17/2009 FINDINGS: The breasts demonstrate diffuse fatty replacement bilaterally. No suspicious masses, clustered microcalcifications, or regions of architectural distortion are identified. IMPRESSION: Negative examination RECOMMENDATION: Routine annual screening unless otherwise clinically indicated. BIRADS CATEGORY 1: Negative STANDARD QUALIFYING STATEMENTS: 1. This examination was reviewed with the aid of Computer-Aided Detection (CAD). 2. A negative or benign imaging report should not delay biopsy if clinically suspicious findings are present. Consider surgical consultation if warrented. More than 5% of cancers are not identified by imaging. 3. Dense breasts may obscure an underlying neoplasm.
== END 2017-08-15 13:29 | disposition home or self-care (01) ==
LOC: DI.N 13:28
PROVIDERS: ATTEND Family Medicine
DX: Z00.00 Encounter for general adult medical examination without abnormal findings (principal); Z12.31 Encounter for screening mammogram for malignant neoplasm of breast
CPT/HCPCS: 77067

== ENCOUNTER 2017-09-17 08:00 | Outpatient (CLI) | payer MEDICAID ==
[2017-09-17 12:40] LABS: GLUCOSE, URINE (UA) NEGATIVE (NEGATIVE); KETONES,URINE (UA) TRACE mg/dL (NEGATIVE); LEUKOCYTE ESTERASE, URINE NEGATIVE (NEGATIVE); NITRITE,URINE NEGATIVE (NEGATIVE); OCCULT BLOOD,URINE NEGATIVE (NEGATIVE); PH,URINE 5.5 PH (5.0-7.5); PROTEIN,URINE TRACE mg/dL (NEGATIVE); UROBILINOGEN,URINE 0.2 (NORMAL) E.U./dL (NORMAL)
[2017-09-17 12:48] LABS: BACTERIA,URINE Many /HPF (None Seen); BILIRUBIN,URINE NEGATIVE (NEGATIVE); CLARITY,URINE CLOUDY (CLEAR); ICTOTEST,URINE NEGATIVE; MUCUS,URINE Moderate Strands; RBC,URINE 3 /HPF (0-5); SQUAMOUS EPITHELIAL CELL,UR RARE Squamous (<= Few)
== END 2017-09-17 08:01 | disposition home or self-care (01) ==
LOC: LAB.R 08:00
PROVIDERS: ATTEND Family Medicine
DX: R30.0 Dysuria (principal)
CPT/HCPCS: 81001; 87086

== ENCOUNTER 2017-10-22 15:42 | Outpatient (CLI) | payer MEDICAID ==
--- NOTE | 2017-10-22 16:32 | XRAY Report ---
Procedure Date: 10/22/2017 Accession Number: [id number] / [id number] Procedure: XRN - Foot 3 View RT CPT Code: FULL RESULT: EXAM: RIGHT FOOT RADIOGRAPHY EXAM DATE: 10/22/2017 04:07 PM. CLINICAL HISTORY: Right foot pain. COMPARISON: X-ray right foot 02/21/2006 9:45 AM. TECHNIQUE: 3 views. FINDINGS: Bones: Two screws status post hallux valgus surgery are stable. No fracture or dislocation is identified. The previous first ray fracture has healed. Joints: Normal. No subluxations. Soft Tissues: Normal. No soft tissue swelling. IMPRESSION: Status post hallux valgus surgery with no acute fracture or dislocation. [facility]
== END 2017-10-22 15:43 | disposition home or self-care (01) ==
LOC: DI.N 15:42
PROVIDERS: ATTEND Family Medicine
DX: M79.671 Pain in right foot (principal); M81.0 Age-related osteoporosis without current pathological fracture

== ENCOUNTER 2017-10-25 16:44 | Emergency (ER) | payer MEDICAID ==
[2017-10-25] MEDS ORDERED: SODIUM CHLORIDE 0.9% 1,000 ML IV ONE (17:51)
[2017-10-25] MEDS ORDERED: LIDOCAINE-MPF 2% 5 ML in SODIUM CHLORIDE 0.9% 50 ML IV STA (17:51)
[2017-10-25] MEDS ORDERED: KETOROLAC 15 MG/ML VIAL IVP STA (17:51)
[2017-10-25] MEDS ORDERED: PROMETHAZINE INJ 25 MG in SODIUM CHLORIDE 0.9% 50 ML IV STA (17:52)
--- NOTE | 2017-10-25 18:15 | ED Physician Documentation ---
History of Present Illness - Stated complaint Stated Complaint: ABD/BACK PX - Chief complaint Chief Complaint: Abd Pain - History obtained from History obtained from: Patient - History of Present Illness Timing: How many days ago (3) Pain level max: 9 Pain level now: 8 Quality: pain Improved by: nothing Worsened by: nothing - Additonal information Additional information: Patient is a 47-year-old female who presents to the emergency department with left-sided flank pain for the past 3 days. Had a CAT scan back in April of this year that revealed an 8 x 6 mm stone in the left kidney. She is concerned that she may be passing the kidney stone now. No fevers. States has had dysuria. Took Motrin and Tylenol without relief. Always has nausea. nothing makes it better or worse Review of Systems Ten Systems: 10 systems reviewed and negative Constitutional: denies: Fever, Chills Nose: denies: Rhinorrhea / runny nose, Congestion Throat: denies: Sore throat Cardiac: denies: Chest pain / pressure Respiratory: denies: Cough GI: reports: Nausea. 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, 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 - Present Medications Home Medications: Ambulatory Orders Medication Instructions Recorded Confirmed Promethazine [Phenergan] 25 mg PO Q4HR PRN 05/03/16 05/05/17 Hydrocodone/Acetaminophen 1 - 2 each PO Q6H PRN #14 tablet 10/25/17 [Hydrocodon-Acetaminophen 5-325] Meloxicam [Mobic] 7.5 mg PO BID PRN #20 tablet 10/25/17 - Allergies Allergies/Adverse Reactions: Allergies Allergy/AdvReac Type Severity Reaction Status Date / Time latex Allergy Mild Rash Verified 10/25/17 16:54 cat dander Allergy Anaphylaxis Verified 10/25/17 16:54 codeine [Codeine] Allergy Hives Verified 10/25/17 16:54 morphine Allergy Hives Verified 10/25/17 16:54 Penicillins Allergy Hives Verified 10/25/17 16:54 Sulfa (Sulfonamide Allergy Hives Verified 10/25/17 16:54 Antibiotics) aspirin AdvReac stomach Verified 10/25/17 16:54 sensitivity IV contrast Allergy anaphylaxis Uncoded 10/25/17 16:54 - Living Situation Living Situation: reports: With family Living Arrangement: reports: At home - Social History Does the pt smoke?: Yes Smoking Status: Current every day smoker Does the pt drink ETOH?: No Does the pt have substance abuse?: No - Family History Family history: reports: Non contributory - Immunizations Immunizations are current?: Yes - POLST Patient has POLST: No PD ED PE NORMAL - Vitals Vital signs reviewed: Yes - General General: Alert and oriented X 3, No acute distress - HEENT HEENT: Moist mucous membranes - Neck Neck: Supple, no meningeal sign - Cardiac Cardiac: RRR, Strong equal pulses - Respiratory Respiratory: No respiratory distress, Clear bilaterally - Abdomen Abdomen: Soft, Non tender, Non distended - Back Back: No CVA TTP, No spinal TTP - Derm Derm: Warm and dry, No rash - Neuro Neuro: Alert and oriented X 3 - Psych Psych: Normal mood, Normal affect Results - Vitals Vitals: Vital Signs - 24 hr 10/25/17 10/25/17 16:52 20:39 Temperature 36.5 C Heart Rate 85 64 Respiratory 18 15 Rate Blood Pressure 135/81 H 109/72 O2 Saturation 96 Oxygen O2 Source Room air - Labs Labs: Laboratory Tests 10/25/17 10/25/17 10/25/17 17:45 18:40 18:40 WBC 9.8 RBC 5.04 Hgb 13.9 Hct 40.2 MCV 79.7 L MCH 27.5 MCHC 34.5 RDW 14.8 Plt Count 234 MPV 9.8 Neut # (Auto) 5.3 Lymph # (Auto) 3.3 Rush # (Auto) 0.7 Eos # (Auto) 0.5 Baso # (Auto) 0.1 Absolute Nucleated RBC 0.01 Nucleated RBC % 0.1 Sodium 139 Potassium 4.2 Chloride 107 Carbon Dioxide 23 Anion Gap 9.0 BUN 11 Creatinine 0.8 Estimated GFR (MDRD) 77 L Glucose 107 H Calcium 9.0 Total Bilirubin 0.6 AST 24 ALT 15 Alkaline Phosphatase 84 Total Protein 7.3 Albumin 4.2 Globulin 3.1 Albumin/Globulin Ratio 1.4 Lipase 32 Urine Color YELLOW Urine Clarity HAZY Urine pH 6.0 Ur Specific Blaine >=1.030 H Urine Protein TRACE Urine Glucose (UA) NEGATIVE Urine Ketones NEGATIVE Urine Occult Blood LARGE H Urine Nitrite NEGATIVE Urine Bilirubin NEGATIVE Urine Urobilinogen 0.2 (NORMAL) Ur Leukocyte Esterase NEGATIVE Urine RBC TNTC H Urine WBC 0-3 Ur Squamous Epith Cells RARE Squamous Urine Crystals 6-10 Calcium Oxalate Urine Bacteria Rare Urine Mucus Few Strands Ur Microscopic Review INDICATED Urine Culture Comments NOT INDICATED Urine HCG, Qual NEGATIVE - Rads (name of study) CT abdomen and pelvis Radiology: Prelim report reviewed, EMP read contemporaneously, See rad report ( 7 x 6 mm nonobstructing left kidney stone. Unchanged. No ureteral stone or hydronephrosis. No other significant acute abnormality) PD MEDICAL DECISION MAKING - ED course Complexity details: reviewed results, re-evaluated patient, considered differential, d/w patient ED course: Patient is a 47-year-old female who presents to the emergency department with left flank pain. Does have a nonobstructing left kidney stone, but no ureteral stones visible on CT. Does have calcium oxalate crystals in the urine and possible that she has a small stone that is just unseen. Does have hematuria as well. Pain well controlled with Toradol and IV lidocaine. No fevers. No evidence of pyelonephritis. Patient is well-appearing, nontoxic. Does not want anything else for pain at this time. We will have her follow-up with her doctor for further care. Patient counseled regarding signs and symptoms for which I believe and urgent re-evaluation would be necessary. Patient with good understanding of and agreement to plan and is comfortable going home at this time This document was made in part using voice recognition software. While efforts are made to proofread this document, sound alike and grammatical errors may occur. - Sepsis Event Vital Signs: Vital Signs - 24 hr 10/25/17 10/25/17 16:52 20:39 Temperature 36.5 C Heart Rate 85 64 Respiratory 18 15 Rate Blood Pressure 135/81 H 109/72 O2 Saturation 96 Oxygen O2 Source Room air Departure - Departure Disposition: 01 Home, Self Care Clinical Impression: Flank pain Condition: Good Instructions: ED Flank Pain Uncertain Cause Follow-Up: Joaquin Romo MD [Primary Care Provider] - Within 1 week Prescriptions: Hydrocodone/Acetaminophen [Hydrocodon-Acetaminophen 5-325] 1 - 2 each PO Q6H PRN #14 tablet PRN Reason: pain Meloxicam [Mobic] 7.5 mg PO BID PRN #20 tablet PRN Reason: Pain Comments: This should improve over the next 2-3 days. Return if you worsen. Drink plenty of fluids. Do not drink alcohol or drive while on narcotic pain medicine. Note that many narcotic pain relievers also contain tylenol/acetaminophen. Please ensure that your total dose of acetaminophen from all sources does not exceed 3 grams (3000mg) per day. You may constipated on this medication, take a stool softener such as "Colace" twice a day while you are on it. Also recommend a [id number] laxative such as senna or MiraLAX any day that you do not have a bowel movement. If you received narcotic pain medication in the emergency department, do not drive or operate machinery for the next 24 hours. Discharge Date/Time: 10/25/17 20:48
[2017-10-25 18:44] LABS: BILIRUBIN,URINE NEGATIVE (NEGATIVE); GLUCOSE, URINE (UA) NEGATIVE (NEGATIVE); KETONES,URINE (UA) NEGATIVE (NEGATIVE); LEUKOCYTE ESTERASE, URINE NEGATIVE (NEGATIVE); NITRITE,URINE NEGATIVE (NEGATIVE); OCCULT BLOOD,URINE LARGE (NEGATIVE); PROTEIN,URINE TRACE mg/dL (NEGATIVE); UROBILINOGEN,URINE 0.2 (NORMAL) E.U./dL (NORMAL)
[2017-10-25 18:49] LABS: CLARITY,URINE HAZY (CLEAR); HCG UR QUAL NEGATIVE
[2017-10-25 18:50] LABS: BASOPHILS # (AUTO) 0.1 10^3/uL (0.0-0.1); BASOPHILS % (AUTO) 1.2 %; EOSINOPHILS # (AUTO) 0.5 10^3/uL (0.0-0.7); EOSINOPHILS % (AUTO) 4.9 %; HGB - HEMOGLOBIN 13.9 g/dL (12.0-16.0); LYMPHOCYTES # (AUTO) 3.3 10^3/uL (1.5-3.5); LYMPHOCYTES % (AUTO) 33.2 %; MEAN CORPUSCULAR HEMOGLOBIN 27.5 pg (27.0-31.0); MEAN CORPUSCULAR HGB CONC 34.5 g/dL (32.0-36.0); MEAN CORPUSCULAR VOLUME 79.7 fL (81.0-99.0); MEAN PLATELET VOLUME 9.8 fL (7.9-10.8); MONOCYTES # (AUTO) 0.7 10^3/uL (0.0-1.0); MONOCYTES % (AUTO) 6.7 %; NEUTROPHILS # (AUTO) 5.3 10^3/uL (1.5-6.6); PLT - PLATELET COUNT 234 10^3/uL (130-450); RED BLOOD COUNT 5.04 10^6/uL (4.20-5.40); RED CELL DISTRIBUTION WIDTH 14.8 % (12.0-15.0); WHITE BLOOD COUNT 9.8 x10^3/uL (4.8-10.8)
[2017-10-25 18:55] LABS: BACTERIA,URINE Rare /HPF (None Seen); CRYSTALS,URINE 6-10 Calcium Oxalate /LPF; MUCUS,URINE Few Strands; RBC,URINE TNTC /HPF (0-5); SQUAMOUS EPITHELIAL CELL,UR RARE Squamous (<= Few)
[2017-10-25 19:02] LABS: ALBUMIN 4.2 g/dL (3.2-5.5); ALBUMIN/GLOBULIN RATIO 1.4 (1.0-2.2); BILIRUBIN,TOTAL 0.6 mg/dL (0.2-1.0); CREATININE 0.8 mg/dL (0.4-1.0); TOTAL PROTEIN 7.3 g/dL (6.7-8.2)
--- NOTE | 2017-10-25 19:44 | CT Report ---
Procedure Date: 10/25/2017 Accession Number: [id number] / [id number] Procedure: CT - Abdomen/Pelvis W/O CPT Code: FULL RESULT: EXAM: CT ABDOMEN AND PELVIS EXAM DATE: 10/25/2017 07:16 PM. CLINICAL HISTORY: L flank pain, poss renal stone. COMPARISONS: ABDOMEN/PELVIS W/O 05/05/2017 2:26 AM. TECHNIQUE: Routine helical CT imaging was performed through the abdomen and pelvis. IV contrast: No. Enteric contrast: No. Reconstructions: Coronal and sagittal. In accordance with CT protocol optimization, one or more of the following dose reduction techniques were utilized for this exam: automated exposure control, adjustment of mA and/or KV based on patient size, or use of iterative reconstructive technique. FINDINGS: Lung Bases: Unremarkable. Liver: The liver is normal in size and contour. Gallbladder/Bile Ducts: The gallbladder is surgically absent. Spleen: Normal in size and contour. Pancreas: Normal in size and contour. Adrenal Glands: Normal. Kidneys: There is a left kidney stone measuring 7 x 6 mm. No ureter stone. No hydronephrosis. Peritoneal Cavity/Bowel: Normal. No free fluid, free air or adenopathy. No masses or acute inflammatory process. Pelvic Organs: Urinary bladder appears unremarkable. Uterus is absent. Vasculature: No aneurysms or other significant abnormality. Bones: No significant abnormality. Other: None. IMPRESSION: 1. 7 x 6 mm nonobstructing left kidney stone. Unchanged. 2. No ureter stone or hydronephrosis. 3. No other significant acute abnormality. [facility]
[2017-10-25 20:40] VITALS: BP 109/72
== END 2017-10-25 20:48 | disposition home or self-care (01) ==
LOC: ED 16:44
DX: R10.9 Unspecified abdominal pain (principal); R31.9 Hematuria, unspecified; N20.0 Calculus of kidney; F17.200 Nicotine dependence, unspecified, uncomplicated
CPT/HCPCS: 36415; 74176; 80053; 81001; 81025; 83690; 85025; 96365; 96367; 96375; 99283; J7040; 81003; 87086

== ENCOUNTER 2017-11-19 09:09 | Emergency (ER) | payer MEDICAID ==
[2017-11-19 10:51] LABS: BASOPHILS # (AUTO) 0.1 10^3/uL (0.0-0.1); BASOPHILS % (AUTO) 0.5 %; EOSINOPHILS # (AUTO) 0.4 10^3/uL (0.0-0.7); EOSINOPHILS % (AUTO) 2.9 %; HGB - HEMOGLOBIN 14.1 g/dL (12.0-16.0); LYMPHOCYTES # (AUTO) 2.9 10^3/uL (1.5-3.5); LYMPHOCYTES % (AUTO) 21.4 %; MEAN CORPUSCULAR HEMOGLOBIN 27.3 pg (27.0-31.0); MEAN CORPUSCULAR HGB CONC 33.4 g/dL (32.0-36.0); MEAN CORPUSCULAR VOLUME 81.7 fL (81.0-99.0); MEAN PLATELET VOLUME 9.3 fL (7.9-10.8); MONOCYTES # (AUTO) 0.9 10^3/uL (0.0-1.0); NEUTROPHILS # (AUTO) 9.2 10^3/uL (1.5-6.6); NEUTROPHILS % (AUTO) 68.2 %; PLT - PLATELET COUNT 226 10^3/uL (130-450); RED BLOOD COUNT 5.19 10^6/uL (4.20-5.40); RED CELL DISTRIBUTION WIDTH 14.4 % (12.0-15.0); WHITE BLOOD COUNT 13.4 x10^3/uL (4.8-10.8)
--- NOTE | 2017-11-19 10:56 | ED Physician Documentation ---
PD HPI ABD PAIN - Stated complaint Stated Complaint: L SIDE PX - Chief complaint Chief Complaint: Abd Pain - History obtained from History obtained from: Patient - History of Present Illness Timing - onset: How many hours ago (few), Today Timing - duration: Hours Timing - details: Abrupt onset, Still present Quality: Aching, Sharp, Pain Location: LLQ Radiation: Left flank Improved by: No: Laying still Worsened by: No: Moving, Breathing, Palpation Associated symptoms: Nausea, Loss of appetite. No: Vomiting, Diarrhea, Dysuria Similar symptoms before: Diagnosis (kidney stones) Recently seen: Not recently seen Review of Systems Constitutional: denies: Fever, Chills Nose: denies: Rhinorrhea / runny nose, Congestion Throat: denies: Sore throat Respiratory: denies: Cough GI: reports: Abdominal Pain, Nausea. denies: Vomiting, Constipation, Diarrhea : reports: Hematuria. 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, 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 - Present Medications Home Medications: Ambulatory Orders Medication Instructions Recorded Confirmed RX: Promethazine [Phenergan] 25 mg PO Q4HR PRN 05/03/16 05/05/17 Hydrocodone/Acetaminophen 1 - 2 each PO Q6H PRN #14 tablet 10/25/17 [Hydrocodon-Acetaminophen 5-325] Meloxicam [Mobic] 7.5 mg PO BID PRN #20 tablet 10/25/17 Dexamethasone [Decadron] 4 mg PO DAILY #5 tablet 11/19/17 HYDROcodone/ACET 7.5/325 [[place] 1 each PO Q4-6H PRN #25 tablet 11/19/17 7.5/325] Ondansetron HCl [Zofran] 4 mg PO Q6H PRN #20 tablet 11/19/17 - Allergies Allergies/Adverse Reactions: Allergies Allergy/AdvReac Type Severity Reaction Status Date / Time latex Allergy Mild Rash Verified 10/25/17 16:54 cat dander Allergy Anaphylaxis Verified 10/25/17 16:54 codeine [Codeine] Allergy Hives Verified 10/25/17 16:54 Horse/Equine Containing Allergy Anaphylaxis Verified 11/19/17 09:17 Products morphine Allergy Hives Verified 10/25/17 16:54 Penicillins Allergy Hives Verified 10/25/17 16:54 Sulfa (Sulfonamide Allergy Hives Verified 10/25/17 16:54 Antibiotics) aspirin AdvReac stomach Verified 10/25/17 16:54 sensitivity IV contrast Allergy anaphylaxis Uncoded 10/25/17 16:54 - Social History Does the pt smoke?: Yes Smoking Status: Current every day smoker Does the pt drink ETOH?: No Does the pt have substance abuse?: No - Immunizations Immunizations are current?: Yes - POLST Patient has POLST: No PD ED PE NORMAL - Vitals Vital signs reviewed: Yes - General General: Alert and oriented X 3, Well developed/nourished, Other (appears in marked pain) - HEENT HEENT: Pharynx benign - Neck Neck: Supple, no meningeal sign, No adenopathy - Cardiac Cardiac: RRR, No murmur - Respiratory Respiratory: Clear bilaterally - Abdomen Abdomen: Normal bowel sounds, Soft, Non distended, No organomegaly, Other (tender LLQ and marked pain percussion left CVA. ) - Female Female : Deferred - Rectal Rectal: Deferred - Derm Derm: Normal color, Warm and dry, No rash - Neuro Neuro: Alert and oriented X 3, No motor deficit, Normal speech Results - Vitals Vitals: Vital Signs - 24 hr 11/19/17 11/19/17 09:15 13:53 Temperature 35.3 C L Heart Rate 75 64 Respiratory 20 14 Rate Blood Pressure 136/92 H 113/71 O2 Saturation 97 97 Oxygen O2 Source Room air - Labs Labs: Laboratory Tests 11/19/17 11/19/17 10:45 10:45 WBC 13.4 H RBC 5.19 Hgb 14.1 Hct 42.4 MCV 81.7 MCH 27.3 MCHC 33.4 RDW 14.4 Plt Count 226 MPV 9.3 Neut # (Auto) 9.2 H Lymph # (Auto) 2.9 [place] # (Auto) 0.9 Eos # (Auto) 0.4 Baso # (Auto) 0.1 Absolute Nucleated RBC 0.00 Nucleated RBC % 0.0 Sodium 138 Potassium 4.1 Chloride 105 Carbon Dioxide 25 Anion Gap 8.0 BUN 11 Creatinine 1.0 Estimated GFR (MDRD) 60 L Glucose 106 H Calcium 9.2 Total Bilirubin 0.4 AST 20 ALT 17 Alkaline Phosphatase 87 Total Protein 7.2 Albumin 4.2 Globulin 3.0 Albumin/Globulin Ratio 1.4 Lipase 29 - Rads (name of study) kub CT Radiology: Prelim report reviewed, EMP read contemporaneously (6 mm width stone in proximal ureter. ) PD MEDICAL DECISION MAKING - ED course Complexity details: reviewed results (prior renal stone is not proximal ureter. ), re-evaluated patient (feeling improved with pain meds and then with lido/toradol after CT showing stone passing in ureter. It is large stone at 6 mm width. Will refer to Urology. Does not have bad hydro. ), considered differential, d/w patient - Sepsis Event Vital Signs: Vital Signs - 24 hr 11/19/17 11/19/17 09:15 13:53 Temperature 35.3 C L Heart Rate 75 64 Respiratory 20 14 Rate Blood Pressure 136/92 H 113/71 O2 Saturation 97 97 Oxygen O2 Source Room air Departure - Departure Disposition: 01 Home, Self Care Clinical Impression: Left sided abdominal pain, Ureterolithiasis Condition: Stable Record reviewed to determine appropriate education?: Yes Instructions: ED Stone Renal W Colic Follow-Up: Joaquin Romo MD [Primary Care Provider] - Jia Mann MD [Physician No Access] - Prescriptions: Dexamethasone [Decadron] 4 mg PO DAILY #5 tablet HYDROcodone/ACET 7.5/325 [[place] 7.5/325] 1 each PO Q4-6H PRN #25 tablet PRN Reason: Pain Ondansetron HCl [Zofran] 4 mg PO Q6H PRN #20 tablet PRN Reason: Nausea / Vomiting Comments: Drink lots of fluids. I would suggest anti-inflammatory with continuing your meloxicam and adding steroid anti-inflammatory Decadron low-dose daily for several more days. Hydrocodone as needed for pain. Ondansetron if needed for nausea. Follow-up with urology, call the [facility] urology clinic for the next available provider to see you. Return if worse symptoms. Discharge Date/Time: 11/19/17 13:53
[2017-11-19 11:08] LABS: ALBUMIN 4.2 g/dL (3.2-5.5); ALBUMIN/GLOBULIN RATIO 1.4 (1.0-2.2); BILIRUBIN,TOTAL 0.4 mg/dL (0.2-1.0); CALCIUM 9.2 mg/dL (8.5-10.3); TOTAL PROTEIN 7.2 g/dL (6.7-8.2)
[2017-11-19] MEDS ORDERED: HYDROmorphone 1 MG/ML CARPUJECT IVP STA (11:14)
[2017-11-19] MEDS ORDERED: diphenhydrAMINE INJ 50 MG/ML VIAL IVP STA (11:14)
[2017-11-19] MEDS ORDERED: SODIUM CHLORIDE 0.9% 1,000 ML IV ONE (11:14)
[2017-11-19] MEDS ORDERED: ONDANSETRON 4 MG/2 ML VIAL IVP STA ×2 (11:14→13:37)
--- NOTE | 2017-11-19 12:36 | CT Report ---
Reason: abrupt worse left flank pain; h/o renal stone Procedure Date: 11/19/2017 Accession Number: [id number] / [id number] Procedure: CT - KUB CPT Code: FULL RESULT: EXAM: CT ABDOMEN AND PELVIS (CT KUB) EXAM DATE: 11/19/2017 11:36 AM. CLINICAL HISTORY: Abrupt worse left flank pain; h/o renal stone. COMPARISONS: Abdomen pelvis CT 10/25/2017. TECHNIQUE: Routine axial helical CT imaging was performed through the abdomen and pelvis without IV contrast. Reconstructions: Coronal and sagittal. In accordance with CT protocol optimization, one or more of the following dose reduction techniques were utilized for this exam: automated exposure control, adjustment of mA and/or KV based on patient size, or use of iterative reconstructive technique. FINDINGS: Lung Bases: Unremarkable. Right Kidney/Ureter: No stones, hydronephrosis, or hydroureter. No perinephric fat stranding. Left Kidney/Ureter: There is a 7 mm stone in the proximal left ureter with mild hydronephrosis and perinephric stranding. No other urologic stones are seen. Other Solid Organs: Noncontrast images of the solid organs are grossly unremarkable. Gallbladder/Bile Ducts: Cholecystectomy is noted. Peritoneal Cavity: No free fluid, free air or matthew adenopathy. There is mild thickening versus pseudo-thickening of the transverse colon, which is a new finding. Pelvic Organs: No bladder stones or wall thickening. The uterus is absent. Noncontrast images of the visualized pelvic organs appear otherwise unremarkable. Vasculature: Unremarkable. No bone lesions. IMPRESSION: 7 mm proximal left ureteral stone with mild obstructive findings. Possible mild thickening versus pseudo-thickening of the transverse colon. Correlate clinically for possible colitis. [facility]
[2017-11-19] MEDS ORDERED: KETOROLAC 15 MG/ML VIAL IVP STA (12:37)
[2017-11-19] MEDS ORDERED: LIDOCAINE-MPF 2% 5 ML in SODIUM CHLORIDE 0.9% 50 ML IV STA ×2 (12:37→13:12)
[2017-11-19] MEDS ORDERED: DEXAMETHASONE 10 MG/ML VIAL IVP STA (12:37)
[2017-11-19] MEDS ORDERED: SODIUM CHLORIDE 0.9% 50 ML IV ONE (13:10)
[2017-11-19 13:54] VITALS: BP 113/71
== END 2017-11-19 13:53 | disposition home or self-care (01) ==
LOC: ED 09:09
DX: N20.1 Calculus of ureter (principal); Z87.442 Personal history of urinary calculi; F17.200 Nicotine dependence, unspecified, uncomplicated
CPT/HCPCS: 36415; 74176; 80053; 83690; 85025; 96374; 96375; 99283; J1170; J1200; J7040

== ENCOUNTER 2018-05-12 08:00 | Outpatient (CLI) | payer MEDICAID ==
[2018-05-12 20:07] LABS: ALBUMIN/GLOBULIN RATIO 1.3 (1.0-2.2); ALKALINE PHOSPHATASE 80 IU/L (42-121); ALT ALANINE AMINOTRANSFERASE 32 IU/L (10-60); AST ASPARTATE AMINOTRANSFERASE 25 IU/L (10-42); BILIRUBIN,TOTAL 0.8 mg/dL (0.2-1.0); BUN - BLOOD UREA NITROGEN 15 mg/dL (6-20); CALCIUM 9.1 mg/dL (8.5-10.3); CARBON DIOXIDE - CO2 25 mmol/L (21-32); CHLORIDE 106 mmol/L (101-111); CHOL/HDL RATIO 8.2 (<4.4); CHOLESTEROL 278 mg/dL; CREATININE 0.7 mg/dL (0.4-1.0); GFR - MDRD 90 (>89); GLUCOSE 91 mg/dL (70-100); HDL CHOLESTEROL 34 mg/dL; LDL CHOLESTEROL,CALCULATED 199 mg/dL; LDL/HDL RATIO 5.9 (<4.4); SODIUM 138 mmol/L (135-145); TOTAL PROTEIN 7.2 g/dL (6.7-8.2); VLDL CHOLESTEROL 45 mg/dL
[2018-05-12 20:09] LABS: THYROID STIMULATING HORMONE 1.57 uIU/mL (0.34-5.60)
[2018-05-12 20:18] LABS: FOLATE 7.05 ng/mL (5.90 - >24.8)
[2018-05-12 20:35] LABS: BASOPHILS # (AUTO) 0.1 10^3/uL (0.0-0.1); BASOPHILS % (AUTO) 0.7 %; EOSINOPHILS # (AUTO) 0.3 10^3/uL (0.0-0.7); EOSINOPHILS % (AUTO) 3.4 %; HGB - HEMOGLOBIN 14.2 g/dL (12.0-16.0); LYMPHOCYTES # (AUTO) 2.8 10^3/uL (1.5-3.5); LYMPHOCYTES % (AUTO) 37.5 %; MEAN CORPUSCULAR HEMOGLOBIN 27.1 pg (27.0-31.0); MEAN CORPUSCULAR HGB CONC 32.7 g/dL (32.0-36.0); MEAN CORPUSCULAR VOLUME 82.8 fL (81.0-99.0); MEAN PLATELET VOLUME 10.1 fL (7.9-10.8); MONOCYTES # (AUTO) 0.6 10^3/uL (0.0-1.0); MONOCYTES % (AUTO) 7.7 %; NEUTROPHILS # (AUTO) 3.8 10^3/uL (1.5-6.6); NEUTROPHILS % (AUTO) 50.7 %; PLT - PLATELET COUNT 217 10^3/uL (130-450); RED BLOOD COUNT 5.25 10^6/uL (4.20-5.40); RED CELL DISTRIBUTION WIDTH 14.5 % (12.0-15.0); WHITE BLOOD COUNT 7.6 x10^3/uL (4.8-10.8)
== END 2018-05-12 23:59 | disposition home or self-care (01) ==
LOC: LAB.N 08:00
PROVIDERS: ATTEND Nurse Practitioner
DX: R53.83 Other fatigue (principal); I95.9 Hypotension, unspecified; K51.90 Ulcerative colitis, unspecified, without complications; E55.9 Vitamin D deficiency, unspecified
CPT/HCPCS: 36415; 80053; 80061; 82306; 82607; 82746; 83721; 84443; 85025

== ENCOUNTER 2018-07-01 15:47 | Outpatient (CLI) | payer MEDICAID ==
--- NOTE | 2018-07-02 00:29 | XRAY Report ---
Reason: ABDOMINAL PAIN Procedure Date: 07/01/2018 Accession Number: [id number] / [id number] Procedure: XRN - Abdomen 2 View X-Ray CPT Code: 19820 FULL RESULT: EXAM: ABDOMEN RADIOGRAPHY EXAM DATE: 07/01/2018 04:06 PM. CLINICAL HISTORY: ABDOMINAL PAIN. COMPARISON: None. TECHNIQUE: 2 views. FINDINGS: Lung Bases: Unremarkable. Bowel Gas Pattern: Within normal limits. No dilated loops or abnormal fluid levels. Moderate stool in the ascending colon. Free Air: None. Other: Surgical clips in the right upper quadrant and the right side of the pelvis. IMPRESSION: No acute findings. Moderate stool in the ascending colon. [facility]
== END 2018-07-01 15:48 | disposition home or self-care (01) ==
LOC: DI.N 15:47
PROVIDERS: ATTEND Nurse Practitioner
DX: R10.9 Unspecified abdominal pain (principal)
CPT/HCPCS: 74019

== ENCOUNTER 2018-08-05 14:34 | Outpatient (CLI) | payer MEDICAID | END 2018-08-05 14:35 | disposition home or self-care (01) | LOC: SC 14:34 | PROVIDERS: ATTEND Nurse Practitioner Family | DX: G47.10 Hypersomnia, unspecified (principal); R41.89 Other symptoms and signs involving cognitive functions and awareness; G47.8 Other sleep disorders; G47.00 Insomnia, unspecified; R53.83 Other fatigue | CPT/HCPCS: 99204; 99212 ==

== ENCOUNTER 2018-08-31 19:30 | Outpatient (CLI) | payer MEDICAID | END 2018-08-31 23:59 | disposition home or self-care (01) | LOC: SC 19:30 | PROVIDERS: ATTEND Internal Medicine Pulmonary Disease | DX: G47.00 Insomnia, unspecified (principal); G47.8 Other sleep disorders | CPT/HCPCS: 95806 ==

== ENCOUNTER 2018-09-08 09:42 | Outpatient (CLI) | payer MEDICAID ==
--- NOTE | 2018-09-09 15:25 | XRAY Report ---
Reason: SACRAL BACK PAIN Procedure Date: 09/08/2018 Accession Number: [id number] / [id number] Procedure: XRN - Lumbar Spine Complete CPT Code: FULL RESULT: EXAM: LUMBOSACRAL SPINE RADIOGRAPHY EXAM DATE: 09/08/2018 10:03 AM. CLINICAL HISTORY: SACRAL BACK PAIN. COMPARISONS: 07/16/2016 reformatted images from an abdominal pelvic CT TECHNIQUE: 5 views. FINDINGS: Alignment: No spondylolisthesis or scoliosis. Bones: Five [id number]-otgqwik lumbar vertebral bodies are present. No fractures or bone lesions. Disks: L4-L5 disk space narrowing of equivocal L3-L4 disk space narrowing Facets: No degenerative changes. Sacroiliac Joints: Unremarkable. Soft Tissues: Surgical clips right upper quadrant IMPRESSION: Early degenerative disk disease L3-L4 and L4-L5; otherwise negative. [facility]
== END 2018-09-08 09:43 | disposition home or self-care (01) ==
LOC: DI.N 09:42
PROVIDERS: ATTEND Family Medicine
DX: M51.36 Other intervertebral disc degeneration, lumbar region (principal)
CPT/HCPCS: 72110

== ENCOUNTER 2019-06-22 16:38 | Emergency (ER) | payer MEDICAID ==
--- NOTE | 2019-06-22 17:10 | ED Physician Documentation ---
PD HPI ABD PAIN - Stated complaint Stated Complaint: BLOOD IN URINE, ABD PX - Chief complaint Chief Complaint: Abd Pain - History obtained from History obtained from: Patient - History of Present Illness Timing - onset: How many weeks ago (2) Timing - duration: Weeks (2) Timing - details: Gradual onset, Still present Quality: Sharp, Pain Location: RUQ Radiation: Right flank Improved by: Meds (some improvement with tylenol/ibuprofen) Worsened by: Other (nothing) Associated symptoms: Nausea, Vomiting, Hematuria Similar symptoms before: Diagnosis (kidney stone) Recently seen: Not recently seen - Additional information Additional information: 48-year-old female with a history of kidney stone has developed right flank pain and hematuria about 2 weeks ago and she is had persistence of the symptoms despite hydration and pain medications. She has been taking Tylenol and Advil and she felt that maybe she would pass this and be able to avoid having to come to the emergency department. Her prior experience with kidney stone 2 years ago was long and arduous eventually she had to have a 23 mm stone lithotripsied. Review of Systems Constitutional: denies: Fever, Chills, Myalgias Eyes: denies: Decreased vision Ears: denies: Ear pain Nose: denies: Congestion Throat: denies: Sore throat Cardiac: denies: Chest pain / pressure, Palpitations Respiratory: denies: Dyspnea, Cough GI: reports: Nausea. denies: Abdominal Pain, Vomiting, Constipation, Diarrhea : reports: Hematuria. denies: Dysuria, Frequency Skin: denies: Rash Musculoskeletal: reports: Back pain. denies: Neck pain, Extremity pain Neurologic: denies: Generalized weakness, Focal weakness, Numbness PD PAST MEDICAL HISTORY - Past Medical History Cardiovascular: Other Respiratory: Asthma Neuro: Migraines, Motion sickness Endocrine/Autoimmune: None GI: Pancreatitis, Diverticulitis, Ulcerative colitis, Other CARDIAC CATH TECHNICIAN: Other : Kidney stones HEENT: None Psych: Anxiety, Bipolar disorder, Panic attacks, Claustrophobia Musculoskeletal: Osteoporosis Derm: None - Past Surgical History Past Surgical History: Yes General: Cholecystectomy, Appendectomy, Colonoscopy, EGD Ortho: Other /CARDIAC CATH TECHNICIAN: Hysterectomy, Oophrectomy - Present Medications Home Medications: Ambulatory Orders Medication Instructions Recorded Confirmed Promethazine [Phenergan] 25 mg PO Q4HR PRN 05/03/16 05/05/17 Hydrocodone/Acetaminophen 1 - 2 each PO Q6H PRN #14 tablet 10/25/17 [Hydrocodon-Acetaminophen 5-325] Meloxicam [Mobic] 7.5 mg PO BID PRN #20 tablet 10/25/17 HYDROcodone/ACET 7.5/325 [[place] 1 each PO Q4-6H PRN #25 tablet 11/19/17 7.5/325] Ondansetron HCl [Zofran] 4 mg PO Q6H PRN #20 tablet 11/19/17 dexAMETHasone [Decadron] 4 mg PO DAILY #5 tablet 11/19/17 Cyclobenzaprine [Flexeril] 10 mg PO TID PRN #20 tablet 06/22/19 Hydrocodone/Acetaminophen 1 - 2 each PO Q6H PRN #14 tablet 06/22/19 [Hydrocodon-Acetaminophen 5-325] - Allergies Allergies/Adverse Reactions: Allergies Allergy/AdvReac Type Severity Reaction Status Date / Time latex Allergy Mild Rash Verified 06/22/19 16:53 cat dander Allergy Anaphylaxis Verified 06/22/19 16:53 codeine [Codeine] Allergy Hives Verified 06/22/19 16:53 Horse/Equine Containing Allergy Anaphylaxis Verified 06/22/19 16:53 Products morphine Allergy Hives Verified 06/22/19 16:53 Penicillins Allergy Hives Verified 06/22/19 16:53 Sulfa (Sulfonamide Allergy Hives Verified 06/22/19 16:53 Antibiotics) aspirin AdvReac stomach Verified 06/22/19 16:53 sensitivity IV contrast Allergy anaphylaxis Uncoded 06/22/19 16:53 - Social History Does the pt smoke?: Yes Smoking Status: Current every day smoker Does the pt drink ETOH?: No Does the pt have substance abuse?: No - Immunizations Immunizations are current?: Yes - POLST Patient has POLST: No PD ED PE NORMAL - Vitals Vital signs reviewed: Yes (tachy) - General General: Alert and oriented X 3, No acute distress, Well developed/nourished - HEENT HEENT: Atraumatic, PERRL, EOMI - Neck Neck: Supple, no meningeal sign, No bony TTP - Cardiac Cardiac: RRR, No murmur - Respiratory Respiratory: No respiratory distress, Clear bilaterally - Abdomen Abdomen: Normal bowel sounds, Soft, Non tender, Non distended, No organomegaly - Back Back: No spinal TTP, Other (tenderness to the right flank is reproducible and mild but not entirely localized. Left flank is less involved with similar exam. ) - Derm Derm: Normal color, Warm and dry, No rash - Extremities Extremities: No deformity, No edema - Neuro Neuro: Alert and oriented X 3, foxing painter 2-12 intact, No motor deficit, No sensory deficit, Normal speech Eye Opening: Spontaneous Motor: Obeys Commands Verbal: Oriented GCS Score: 15 - Psych Psych: Normal mood, Normal affect Results - Vitals Vitals: Vital Signs - 24 hr 06/22/19 06/22/19 16:53 18:34 Temperature 36.8 C Heart Rate 106 H 73 Respiratory 17 16 Rate Blood Pressure 118/76 109/70 O2 Saturation 96 97 Oxygen O2 Source Room air - Labs Labs: Laboratory Tests 06/22/19 06/22/19 06/22/19 16:10 17:27 17:27 WBC 10.0 RBC 4.85 Hgb 13.4 Hct 40.0 MCV 82.5 MCH 27.6 MCHC 33.5 RDW 14.1 Plt Count 232 MPV 11.2 H Neut # (Auto) 5.3 Lymph # (Auto) 3.6 H [place] # (Auto) 0.8 Eos # (Auto) 0.3 Baso # (Auto) 0.1 Absolute Nucleated RBC 0.00 Nucleated RBC % 0.0 Sodium 137 Potassium 3.7 Chloride 109 Carbon Dioxide 21 Anion Gap 7.0 BUN 15 Creatinine 0.8 Estimated GFR (MDRD) 77 L Glucose 112 H Calcium 9.0 Total Bilirubin 0.4 AST 21 ALT 22 Alkaline Phosphatase 96 Total Protein 7.1 Albumin 4.1 Globulin 3.0 Albumin/Globulin Ratio 1.4 Lipase 37 Urine Color YELLOW Urine Clarity CLEAR Urine pH 5.5 Ur Specific [place] >=1.030 H Urine Protein NEGATIVE Urine Glucose (UA) NEGATIVE Urine Ketones NEGATIVE Urine Occult Blood NEGATIVE Urine Nitrite NEGATIVE Urine Bilirubin NEGATIVE Urine Urobilinogen 0.2 (NORMAL) Ur Leukocyte Esterase NEGATIVE Ur Microscopic Review NOT INDICATED Urine Culture Comments NOT INDICATED Urine HCG, Qual NEGATIVE - Rads (name of study) CT ab/pel w/o Radiology: Prelim report reviewed (Impression: 1. Possible 1 mm calcification in the left kidney, otherwise normal noncontrasted chest CT of the abdomen pelvis.), EMP read indepedently, See rad report Procedures - Bedside sono Bedside sono by EMP: With use of bedside ultrasound the right kidney is imaged it is sonographically tender there is minimal hydronephrosis the left kidney is without hydronephrosis it is not sonographically tender. PD MEDICAL DECISION MAKING - ED course Complexity details: reviewed old records, reviewed results, re-evaluated patient, considered differential, d/w patient ED course: 48-year-old female with a prior history of kidney stone had a long and arduous course with her most recent stone she has had a prior 4 mm stone passed without incident and she felt that this would happen with this. However she has not had relief of her pain and she shows up here today with right flank pain and hematuria and she has an increase in her pain with movement. Her CT scan is without evidence of hydronephrosis or stone in the kidney or ureter on the right side. There is a punctate calcification in the left kidney of no significant consequence today. Her urinalysis is remarkable for elevated specific gravity but without blood or leukocytes. She appears to have a musculoskeletal source for her pain in the right flank. She is administered saline as she is dehydrated and Toradol. Departure - Departure Disposition: 01 Home, Self Care Clinical Impression: Acute flank pain, Dehydration Condition: Stable Instructions: ED Dehydration, ED Flank Pain Uncertain Cause Follow-Up: RENO SANTA MD [Primary Care Provider] - Prescriptions: Cyclobenzaprine [Flexeril] 10 mg PO TID PRN #20 tablet PRN Reason: Spasms Hydrocodone/Acetaminophen [Hydrocodon-Acetaminophen 5-325] 1 - 2 each PO Q6H PRN #14 tablet PRN Reason: pain Comments: Today there is no evidence of blood in the urine or stone in the ureter. Your flank pain that is worse with movement is likely a musculoskeletal disorder and this will be magnified by dehydration. The recommendation is to stay hydrated and use the pain medication a muscle relaxant as needed stretch these muscles and expect recovery in 1 to 3 days.
[2019-06-22 17:11] LABS: BILIRUBIN,URINE NEGATIVE (NEGATIVE); GLUCOSE, URINE (UA) NEGATIVE (NEGATIVE); KETONES,URINE (UA) NEGATIVE (NEGATIVE); LEUKOCYTE ESTERASE, URINE NEGATIVE (NEGATIVE); NITRITE,URINE NEGATIVE (NEGATIVE); OCCULT BLOOD,URINE NEGATIVE (NEGATIVE); PH,URINE 5.5 PH (5.0-7.5); PROTEIN,URINE NEGATIVE (NEGATIVE); UROBILINOGEN,URINE 0.2 (NORMAL) E.U./dL (NORMAL)
[2019-06-22 17:17] LABS: CLARITY,URINE CLEAR (CLEAR); HCG UR QUAL NEGATIVE
[2019-06-22 17:34] LABS: BASOPHILS # (AUTO) 0.1 10^3/uL (0.0-0.1); BASOPHILS % (AUTO) 0.7 %; EOSINOPHILS # (AUTO) 0.3 10^3/uL (0.0-0.7); EOSINOPHILS % (AUTO) 2.6 %; HGB - HEMOGLOBIN 13.4 g/dL (12.0-16.0); LYMPHOCYTES # (AUTO) 3.6 10^3/uL (1.5-3.5); MEAN CORPUSCULAR HEMOGLOBIN 27.6 pg (27.0-31.0); MEAN CORPUSCULAR HGB CONC 33.5 g/dL (32.0-36.0); MEAN CORPUSCULAR VOLUME 82.5 fL (81.0-99.0); MEAN PLATELET VOLUME 11.2 fL (7.9-10.8); MONOCYTES # (AUTO) 0.8 10^3/uL (0.0-1.0); MONOCYTES % (AUTO) 7.7 %; NEUTROPHILS # (AUTO) 5.3 10^3/uL (1.5-6.6); NEUTROPHILS % (AUTO) 52.6 %; PLT - PLATELET COUNT 232 10^3/uL (130-450); RED BLOOD COUNT 4.85 10^6/uL (4.20-5.40); RED CELL DISTRIBUTION WIDTH 14.1 % (12.0-15.0)
[2019-06-22 17:47] LABS: ALBUMIN 4.1 g/dL (3.2-5.5); ALBUMIN/GLOBULIN RATIO 1.4 (1.0-2.2); BILIRUBIN,TOTAL 0.4 mg/dL (0.2-1.0); CREATININE 0.8 mg/dL (0.4-1.0); TOTAL PROTEIN 7.1 g/dL (6.7-8.2)
--- NOTE | 2019-06-22 18:05 | CT Report ---
Reason: R flank pain Procedure Date: 06/22/2019 Accession Number: [id number] / [id number] Procedure: CT - Abdomen/Pelvis WO CPT Code: Final Report FULL RESULT: EXAM: CT ABDOMEN AND PELVIS (CT KUB) EXAM DATE: 06/22/2019 05:22 PM. CLINICAL HISTORY: R flank pain. COMPARISONS: ABDOMEN/PELVIS W/O 10/25/2017 7:16 PM. TECHNIQUE: Routine axial helical CT imaging was performed through the abdomen and pelvis without IV contrast. Reconstructions: Coronal and sagittal. In accordance with CT protocol optimization, one or more of the following dose reduction techniques were utilized for this exam: automated exposure control, adjustment of mA and/or KV based on patient size, or use of iterative reconstructive technique. FINDINGS: Lung Bases: Unremarkable. Right Kidney/Ureter: No stones, hydronephrosis, or hydroureter. No perinephric fat stranding. Left Kidney/Ureter: There may be a 1 mm punctate calcification in a mid left kidney calyx, but the larger stone in the lower pole on the prior exam is no longer present. No hydronephrosis. No evidence of renal mass. Other Solid Organs: Noncontrast images of the solid organs are grossly unremarkable. Gallbladder/Bile Ducts: Status post cholecystectomy. Peritoneal Cavity: No free fluid, free air or matthew adenopathy. Bowel is grossly unremarkable. Appendix is not identified. Pelvic Organs: Status post hysterectomy. Probable bilateral oophorectomy as well. Urinary bladder is collapsed. Vasculature: Unremarkable. Other: None. IMPRESSION: Possible 1 mm calcification in the left kidney, otherwise normal noncontrast CT of the abdomen and pelvis RADIA
[2019-06-22] MEDS ORDERED: KETOROLAC 30 MG/ML VIAL IVP STA (18:19)
[2019-06-22] MEDS ORDERED: SODIUM CHLORIDE 0.9% 1,000 ML IV ONE (18:19)
[2019-06-22 19:03] VITALS: BP 104/60
== END 2019-06-22 19:07 | disposition home or self-care (01) ==
LOC: ED 16:38
DX: R10.9 Unspecified abdominal pain (principal); E86.0 Dehydration; F17.200 Nicotine dependence, unspecified, uncomplicated
CPT/HCPCS: 36415; 74176; 80053; 81001; 81003; 81025; 83690; 85025; 87086; 96374; 99284

== ENCOUNTER 2019-07-06 13:25 | Emergency (ER) | payer MEDICAID ==
[2019-07-06] MEDS ORDERED: SODIUM CHLORIDE 0.9% 1,000 ML IV ONE (14:05)
[2019-07-06] MEDS ORDERED: KETOROLAC 30 MG/ML VIAL IVP STA (14:05)
--- NOTE | 2019-07-06 14:16 | ED Physician Documentation ---
PD HPI ABD PAIN - Stated complaint Stated Complaint: ABD PX - Chief complaint Chief Complaint: Abd Pain - History obtained from History obtained from: Patient (49 yo F with a pmh of recurrent nephro/urolithiasis, prior cholecysectomy complicated by a bile duct injury, hysterectomy, appendectomy, and prior small bowel obstruction presents with generalized abdominal and flank pain. This pain is different than the pain she typically has with her kidney stones. She states she has not had relief in her pain since her visit on 06/21 at which time she had a negative abdominal CT. She had been on vicodin which she finished yesterday. She states 2 days ago she had a large bowel movement and felt "as though it tore my entire insides." She had a BM this AM as well that was less painful but still uncomfortable. She is passing gas. She is nauseated but not vomiting, but states she is taking q6hr antiemetics. She has not been able to eat today. Abdomen feels distended but "way better than it was 2 days ago." No fever/chills, no dysuria or other urinary sx, no vaginal bleeding.) Review of Systems Constitutional: reports: Reviewed and negative Throat: reports: Reviewed and negative Cardiac: reports: Reviewed and negative Respiratory: reports: Reviewed and negative GI: reports: Abdominal Pain, Nausea. denies: Vomiting, Constipation, Diarrhea, Hematemesis, Bloody / black stool : reports: Reviewed and negative Skin: reports: Reviewed and negative Musculoskeletal: reports: Reviewed and negative Neurologic: reports: Reviewed and negative Psychiatric: reports: Insomnia (pt states unable to sleep as pain keeps her up at night.). denies: Depressed, Anxiety PD PAST MEDICAL HISTORY - Past Medical History Cardiovascular: Other Respiratory: Asthma Neuro: Migraines, Motion sickness Endocrine/Autoimmune: None GI: Pancreatitis, Diverticulitis, Ulcerative colitis, Other MEDICAL DIRECTOR: Other : Kidney stones HEENT: None Psych: Anxiety, Bipolar disorder, Panic attacks, Claustrophobia Musculoskeletal: Osteoporosis Derm: None - Past Surgical History Past Surgical History: Yes General: Cholecystectomy, Appendectomy, Colonoscopy, EGD Ortho: Other /MEDICAL DIRECTOR: Hysterectomy, Oophrectomy - Present Medications Home Medications: Ambulatory Orders Medication Instructions Recorded Confirmed Promethazine [Phenergan] 25 mg PO Q4HR PRN 05/03/16 05/05/17 Hydrocodone/Acetaminophen 1 - 2 each PO Q6H PRN #14 tablet 10/25/17 [Hydrocodon-Acetaminophen 5-325] Meloxicam [Mobic] 7.5 mg PO BID PRN #20 tablet 10/25/17 HYDROcodone/ACET 7.5/325 [[place] 1 each PO Q4-6H PRN #25 tablet 11/19/17 7.5/325] Ondansetron HCl [Zofran] 4 mg PO Q6H PRN #20 tablet 11/19/17 dexAMETHasone [Decadron] 4 mg PO DAILY #5 tablet 11/19/17 Cyclobenzaprine [Flexeril] 10 mg PO TID PRN #20 tablet 06/22/19 Hydrocodone/Acetaminophen 1 - 2 each PO Q6H PRN #14 tablet 06/22/19 [Hydrocodon-Acetaminophen 5-325] Hydrocodone/Acetaminophen 1 - 2 each PO Q6H PRN #8 tablet 07/06/19 [Hydrocodon-Acetaminophen 5-325] Ondansetron Odt [Zofran] 4 mg TL Q6H PRN #10 tablet 07/06/19 - Allergies Allergies/Adverse Reactions: Allergies Allergy/AdvReac Type Severity Reaction Status Date / Time latex Allergy Mild Rash Verified 06/22/19 16:53 cat dander Allergy Anaphylaxis Verified 06/22/19 16:53 codeine [Codeine] Allergy Hives Verified 06/22/19 16:53 Horse/Equine Containing Allergy Anaphylaxis Verified 06/22/19 16:53 Products morphine Allergy Hives Verified 06/22/19 16:53 Penicillins Allergy Hives Verified 06/22/19 16:53 Sulfa (Sulfonamide Allergy Hives Verified 06/22/19 16:53 Antibiotics) aspirin AdvReac stomach Verified 06/22/19 16:53 sensitivity IV contrast Allergy anaphylaxis Uncoded 06/22/19 16:53 - Social History Does the pt smoke?: Yes Smoking Status: Current every day smoker Does the pt drink ETOH?: No Does the pt have substance abuse?: No - Immunizations Immunizations are current?: Yes - POLST Patient has POLST: No PD ED PE NORMAL - Vitals Vital signs reviewed: Yes - General General: Alert and oriented X 3, No acute distress, Well developed/nourished - HEENT HEENT: Atraumatic, PERRL, Moist mucous membranes - Neck Neck: Supple, no meningeal sign, No JVD - Cardiac Cardiac: RRR, No murmur, No gallop, Strong equal pulses - Respiratory Respiratory: No respiratory distress, Clear bilaterally - Abdomen Abdomen: Normal bowel sounds, Soft, Non distended, Other (diffuse tenderness with minimal palpation of both flanks and all quadrants of abdomen and seems out of proportion to remainder of exam. I am also able to more deeply palpate while listening w/ stethoscope without the same pain. The patient is conversing w/o visible pain and able to sit up and get out of bed w/o difficulty. ) - Back Back: Other (bilateral CVAT with minor palpation. ) - Derm Derm: Normal color, Warm and dry, No rash - Extremities Extremities: No deformity, No tenderness to palpate, Normal ROM s pain, No calf tenderness / cord - Neuro Neuro: Alert and oriented X 3 Eye Opening: Spontaneous Motor: Obeys Commands Verbal: Oriented GCS Score: 15 - Psych Psych: Normal mood, Normal affect Results - Vitals Vitals: Vital Signs - 24 hr 07/06/19 07/06/19 07/06/19 13:44 13:50 15:50 Temperature 36.4 C L Heart Rate 96 90 70 Respiratory 20 16 16 Rate Blood Pressure 115/87 H 120/82 H 119/80 O2 Saturation 98 98 95 07/06/19 17:02 Temperature Heart Rate 81 Respiratory 18 Rate Blood Pressure 130/70 O2 Saturation 95 Oxygen O2 Source Room air - Labs Labs: Laboratory Tests 07/06/19 07/06/19 07/06/19 14:15 14:15 15:22 WBC 10.0 RBC 5.19 Hgb 14.3 Hct 43.2 MCV 83.2 MCH 27.6 MCHC 33.1 RDW 14.1 Plt Count 266 MPV 11.7 H Neut # (Auto) 5.5 Lymph # (Auto) 3.2 [place] # (Auto) 0.9 Eos # (Auto) 0.3 Baso # (Auto) 0.1 Absolute Nucleated RBC 0.00 Nucleated RBC % 0.0 Sodium 136 Potassium 4.2 Chloride 104 Carbon Dioxide 21 Anion Gap 11.0 BUN 13 Creatinine 0.8 Estimated GFR (MDRD) 77 L Glucose 96 Calcium 9.0 Total Bilirubin 0.4 AST 28 ALT 43 Alkaline Phosphatase 116 Total Protein 7.8 Albumin 4.3 Globulin 3.5 Albumin/Globulin Ratio 1.2 Lipase 35 Urine Color YELLOW Urine Clarity CLEAR Urine pH 7.0 Ur Specific [place] 1.010 Urine Protein NEGATIVE Urine Glucose (UA) NEGATIVE Urine Ketones NEGATIVE Urine Occult Blood NEGATIVE Urine Nitrite NEGATIVE Urine Bilirubin NEGATIVE Urine Urobilinogen 0.2 (NORMAL) Ur Leukocyte Esterase NEGATIVE Ur Microscopic Review NOT INDICATED Urine Culture Comments NOT INDICATED PD MEDICAL DECISION MAKING - ED course Complexity details: reviewed old records, reviewed results, re-evaluated patient, considered differential, d/w patient ED course: 49 yo F with extensive past abd hx presents with recurrent abdominal pain. Her labs were all reassuring including a normal CBC, CMP, and lipase and a negative UA. I obtained a abd xray to r/o ileus or sbo though low suspicion and xray was negative. Pt had a CT 2 weeks ago and given normal labs and pain out of proportion to exam (and prior valeria, appy, hysterectomy), I d/w pt that I did not think an additional CT scan would give us any new information. Pt agreed and agreeable to a short-term script for vicodin for pain control and follow up with her PCP and GI specialist within the next 1-2 weeks. She is to return if pain worsens or is accompanied by fever or vomiting or otherwise worsening sx. Departure - Departure Disposition: 01 Home, Self Care Clinical Impression: Abdominal pain Condition: Good Instructions: ED Abdominal Pain Unkn Cause Prescriptions: Hydrocodone/Acetaminophen [Hydrocodon-Acetaminophen 5-325] 1 - 2 each PO Q6H PRN #8 tablet PRN Reason: pain Ondansetron Odt [Zofran] 4 mg TL Q6H PRN #10 tablet PRN Reason: Nausea / Vomiting Comments: Please follow up with your primary doctor and your GI specialist. Return to the ER if pain worsens or you develop fever or vomiting. Please trial a bland diet with easily digestible foods such as crackers, toast, and broth. Discharge Date/Time: 07/06/19 17:02
[2019-07-06 15:17] LABS: BASOPHILS # (AUTO) 0.1 10^3/uL (0.0-0.1); BASOPHILS % (AUTO) 0.8 %; EOSINOPHILS # (AUTO) 0.3 10^3/uL (0.0-0.7); HGB - HEMOGLOBIN 14.3 g/dL (12.0-16.0); LYMPHOCYTES # (AUTO) 3.2 10^3/uL (1.5-3.5); LYMPHOCYTES % (AUTO) 31.4 %; MEAN CORPUSCULAR HEMOGLOBIN 27.6 pg (27.0-31.0); MEAN CORPUSCULAR HGB CONC 33.1 g/dL (32.0-36.0); MEAN CORPUSCULAR VOLUME 83.2 fL (81.0-99.0); MEAN PLATELET VOLUME 11.7 fL (7.9-10.8); MONOCYTES # (AUTO) 0.9 10^3/uL (0.0-1.0); MONOCYTES % (AUTO) 9.2 %; NEUTROPHILS # (AUTO) 5.5 10^3/uL (1.5-6.6); NEUTROPHILS % (AUTO) 55.2 %; PLT - PLATELET COUNT 266 10^3/uL (130-450); RED BLOOD COUNT 5.19 10^6/uL (4.20-5.40); RED CELL DISTRIBUTION WIDTH 14.1 % (12.0-15.0)
[2019-07-06 15:28] LABS: BILIRUBIN,URINE NEGATIVE (NEGATIVE); GLUCOSE, URINE (UA) NEGATIVE (NEGATIVE); KETONES,URINE (UA) NEGATIVE (NEGATIVE); LEUKOCYTE ESTERASE, URINE NEGATIVE (NEGATIVE); NITRITE,URINE NEGATIVE (NEGATIVE); OCCULT BLOOD,URINE NEGATIVE (NEGATIVE); PROTEIN,URINE NEGATIVE (NEGATIVE); UROBILINOGEN,URINE 0.2 (NORMAL) E.U./dL (NORMAL)
[2019-07-06 15:29] LABS: CLARITY,URINE CLEAR (CLEAR)
[2019-07-06 15:32] LABS: ALBUMIN 4.3 g/dL (3.2-5.5); ALBUMIN/GLOBULIN RATIO 1.2 (1.0-2.2); BILIRUBIN,TOTAL 0.4 mg/dL (0.2-1.0); CREATININE 0.8 mg/dL (0.4-1.0); TOTAL PROTEIN 7.8 g/dL (6.7-8.2)
[2019-07-06] MEDS ORDERED: ONDANSETRON 4 MG/2 ML VIAL IVP STA (15:52)
--- NOTE | 2019-07-06 16:20 | XRAY Report ---
Reason: gen abd pain, distension, on narcs. eval for sbo/i Procedure Date: 07/06/2019 Accession Number: [id number] / [id number] Procedure: XR - Abdomen Acute CPT Code: Final Report FULL RESULT: EXAM: ABDOMINAL SERIES AND PA CHEST EXAM DATE: 07/06/2019 04:06 PM. CLINICAL HISTORY: Gen abd pain, distension, on narcs. eval for sbo/i. Abdominal pain and distention for 2 weeks. COMPARISON: CHEST 2 VIEW PA/LAT 01/21/2017 3:18 PM ABDOMEN/PELVIS W/O 06/22/2019 5:15 PM. TECHNIQUE: 2 views abdomen and 1 view chest. FINDINGS: CHEST: Lungs/Pleura: Linear opacities in the left lung base likely reflect scarring or atelectasis. Otherwise clear lungs. No pleural effusion. No visible pneumothorax. Mediastinum: Within exam limitations, cardiomediastinal contour is normal. ABDOMEN: Bowel Gas Pattern: Nonobstructive bowel gas pattern. No dilated loops of bowel or air-fluid levels identified. Free Air: None. Other: Surgical clips in the right upper quadrant and right pelvis, as before. No acute osseous abnormality. IMPRESSION: 1. Nonobstructive bowel gas pattern. 2. No acute cardiopulmonary process. [facility]
[2019-07-06 17:02] VITALS: BP 130/70
== END 2019-07-06 17:02 | disposition home or self-care (01) ==
LOC: ED 13:25
DX: R10.84 Generalized abdominal pain (principal); F17.200 Nicotine dependence, unspecified, uncomplicated
CPT/HCPCS: 36415; 74022; 80053; 81001; 81003; 83690; 85025; 87086; 96361; 96374; 96375; 99284

== ENCOUNTER 2019-09-08 11:23 | Outpatient (CLI) | payer MEDICAID ==
[2019-09-08 19:17] LABS: BASOPHILS # (AUTO) 0.1 10^3/uL (0.0-0.1); BASOPHILS % (AUTO) 0.6 %; EOSINOPHILS # (AUTO) 0.3 10^3/uL (0.0-0.7); EOSINOPHILS % (AUTO) 3.1 %; HGB - HEMOGLOBIN 13.9 g/dL (12.0-16.0); LYMPHOCYTES % (AUTO) 35.6 %; MEAN CORPUSCULAR HEMOGLOBIN 26.5 pg (27.0-31.0); MEAN CORPUSCULAR HGB CONC 31.7 g/dL (32.0-36.0); MEAN CORPUSCULAR VOLUME 83.8 fL (81.0-99.0); MEAN PLATELET VOLUME 11.9 fL (7.9-10.8); MONOCYTES # (AUTO) 0.7 10^3/uL (0.0-1.0); NEUTROPHILS # (AUTO) 4.4 10^3/uL (1.5-6.6); NEUTROPHILS % (AUTO) 52.3 %; PLT - PLATELET COUNT 250 10^3/uL (130-450); RED BLOOD COUNT 5.24 10^6/uL (4.20-5.40); RED CELL DISTRIBUTION WIDTH 13.9 % (12.0-15.0); WHITE BLOOD COUNT 8.5 x10^3/uL (4.8-10.8)
[2019-09-08 19:44] LABS: CREATINE KINASE MB 0.5 ng/mL (0.6-6.3)
[2019-09-08 19:47] LABS: ALBUMIN 3.9 g/dL (3.2-5.5); ALBUMIN/GLOBULIN RATIO 1.3 (1.0-2.2); ALKALINE PHOSPHATASE 102 IU/L (42-121); ALT ALANINE AMINOTRANSFERASE 27 IU/L (10-60); AST ASPARTATE AMINOTRANSFERASE 23 IU/L (10-42); BILIRUBIN,TOTAL 0.6 mg/dL (0.2-1.0); BUN - BLOOD UREA NITROGEN 13 mg/dL (6-20); CARBON DIOXIDE - CO2 22 mmol/L (21-32); CHLORIDE 109 mmol/L (101-111); CHOL/HDL RATIO 7.3 (<4.4); CHOLESTEROL 248 mg/dL; CREATININE 0.8 mg/dL (0.4-1.0); GLUCOSE 92 mg/dL (70-100); HDL CHOLESTEROL 34 mg/dL; LDL CHOLESTEROL,CALCULATED 163 mg/dL; LDL/HDL RATIO 4.8 (<4.4); SODIUM 139 mmol/L (135-145); VLDL CHOLESTEROL 51 mg/dL
== END 2019-09-08 23:59 | disposition home or self-care (01) ==
LOC: LAB.WCP 11:23
PROVIDERS: ATTEND Family Medicine
DX: R07.9 Chest pain, unspecified (principal)
CPT/HCPCS: 36415; 80053; 80061; 82553; 83721; 84443; 84484; 85025; 85379

== ENCOUNTER 2019-09-08 12:47 | Outpatient (CLI) | payer MEDICAID ==
--- NOTE | 2019-09-08 14:43 | XRAY Report ---
PROCEDURE: Chest 2 View X-Ray INDICATIONS: CHEST PAIN TECHNIQUE: Two view(s) of the chest. COMPARISON: 09/08/2019. FINDINGS: Surgical changes and devices: None. Lungs and pleura: No pleural effusions or pneumothorax. Lungs are clear. Mediastinum: Mediastinal contours are normal. Heart size is normal. Bones and chest wall: No suspicious bony abnormalities. Soft tissues appear unremarkable. IMPRESSION: No acute cardiac pulmonary process demonstrated radiographically. Reviewed by: Santy Mendoza MD on 09/08/2019 2:41 PM PDT Approved by: Santy Mendoza MD on 09/08/2019 2:41 PM PDT Station ID: [id number]
== END 2019-09-08 12:48 | disposition home or self-care (01) ==
LOC: DI 12:47
PROVIDERS: ATTEND Family Medicine
DX: R07.9 Chest pain, unspecified (principal)
CPT/HCPCS: 36415; 71046; 80053; 80061; 82553; 83721; 84443; 84484; 85025; 85379

== ENCOUNTER 2019-09-14 12:10 | Outpatient (CLI) | payer MEDICAID ==
[2019-09-14 18:15] LABS: MEAN CORPUSCULAR HEMOGLOBIN 27.5 pg (27.0-31.0); MEAN CORPUSCULAR HGB CONC 32.5 g/dL (32.0-36.0); MEAN CORPUSCULAR VOLUME 84.7 fL (81.0-99.0); MEAN PLATELET VOLUME 12.3 fL (7.9-10.8); RED BLOOD COUNT 5.09 10^6/uL (4.20-5.40); RED CELL DISTRIBUTION WIDTH 13.9 % (12.0-15.0); WHITE BLOOD COUNT 8.9 x10^3/uL (4.8-10.8)
[2019-09-14 18:36] LABS: RHEUMATOID FACTOR NEGATIVE (Negative)
[2019-09-14 19:01] LABS: % IRON SATURATION 20 % (20-50); CRP - C-REACTIVE PROTEIN < 1.0 mg/dL (0-1.0); IRON 62 ug/dL (28-170); TOTAL IRON BINDING CAPACITY 318 ug/dL (250-450); TRANSFERRIN 227 mg/dL (192-382); URIC ACID 6.1 mg/dL (2.6-7.2)
== END 2019-09-14 23:59 | disposition home or self-care (01) ==
LOC: LAB.WCP 12:10
PROVIDERS: ATTEND Family Medicine
DX: D64.9 Anemia, unspecified (principal); M25.50 Pain in unspecified joint
CPT/HCPCS: 36415; 83540; 84466; 84550; 85027; 85651; 86038; 86140; 86200; 86430

== ENCOUNTER 2020-01-04 06:37 | Outpatient (CLI) | payer MEDICAID ==
--- NOTE | 2020-01-04 18:03 | Ultrasound Report ---
PROCEDURE: Abdomen Limited INDICATIONS: ABD PAIN TECHNIQUE: Real-time focused scanning was performed of the abdomen, with image documentation. COMPARISON: None FINDINGS: Limited study for evaluating for abdominal wall periumbilical hernia. Note is made of a 8 x 8 mm periumbilical fat-containing hernia, but no bowel containing hernia is found. IMPRESSION: 8mm diameter periumbilical fat-containing hernia identified. No evidence of incarceration or strangul ation. Reviewed by: Tejas Gutierrez MD on 01/04/2020 6:01 PM PDT Approved by: Tejas Gutierrez MD on 01/04/2020 6:01 PM PDT Station ID: [id number]
== END 2020-01-04 06:38 | disposition home or self-care (01) ==
LOC: DI 06:37
PROVIDERS: ATTEND Family Medicine
DX: K42.9 Umbilical hernia without obstruction or gangrene (principal)
CPT/HCPCS: 76705

== ENCOUNTER 2020-01-19 15:55 | Emergency (ER) | payer MEDICAID ==
[2020-01-19] MEDS ORDERED: HYDROmorphone 1 MG/ML CARPUJECT IVP STA ×2 (16:28→18:04)
[2020-01-19] MEDS ORDERED: ONDANSETRON 4 MG/2 ML VIAL IVP STA (16:29)
--- NOTE | 2020-01-19 16:32 | ED Physician Documentation ---
History of Present Illness - Stated complaint Stated Complaint: MARTINEZ - Chief complaint Chief Complaint: Neuro - History obtained from History obtained from: Patient - History of Present Illness Timing: How many days ago (4) - Additonal information Additional information: 49-year-old female presents to the emergency department for evaluation of her headache that began 4 days ago. She has had persistent nausea and blurry vision as well as floaters in her right eye. She reports that 1 month ago she had kaleidoscope vision and was referred to a neurologist through [facility] in [place]. Patient reports to me that the neurologist is trying to get MRI imaging of her head to evaluate for possible aneurysm. Patient reports that this episode of headache began 4 days ago. She is taken excessive amount of Tylenol as well as Compazine. The Tylenol only cuts the headache pain a little bit. She has had no fevers, no falls. At present she reports that she has blurry vision but does not have a return of the kaleidoscope vision or double vision. Patient does report she has a longstanding history of headaches which she had previously attributed to migraines but the headaches of recent are worsening Review of Systems Constitutional: denies: Fever, Chills Eyes: reports: Decreased vision (blurry vision). denies: Loss of vision Ears: reports: Reviewed and negative Nose: reports: Reviewed and negative Throat: reports: Reviewed and negative Cardiac: reports: Chest pain / pressure Respiratory: reports: Reviewed and negative GI: reports: Abdominal Pain, Nausea. denies: Vomiting, Constipation, Diarrhea : denies: Dysuria, Frequency Skin: denies: Rash, Lesions Musculoskeletal: reports: Reviewed and negative Neurologic: reports: Syncope, Headache, Reviewed and negative. 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: Other : Kidney stones HEENT: None Psych: Anxiety, Bipolar disorder, Panic attacks, Claustrophobia Musculoskeletal: Osteoporosis Derm: Eczema - Past Surgical History Past Surgical History: Yes General: Cholecystectomy, Appendectomy, Colonoscopy, EGD Ortho: Other /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: Hysterectomy, Oophrectomy - Present Medications Home Medications: Ambulatory Orders Medication Instructions Recorded Confirmed Promethazine [Phenergan] 25 mg PO Q4HR PRN 05/03/16 05/05/17 Hydrocodone/Acetaminophen 1 - 2 each PO Q6H PRN #14 tablet 10/25/17 [Hydrocodon-Acetaminophen 5-325] Meloxicam [Mobic] 7.5 mg PO BID PRN #20 tablet 10/25/17 HYDROcodone/ACET 7.5/325 [[place] 1 each PO Q4-6H PRN #25 tablet 11/19/17 7.5/325] Ondansetron HCl [Zofran] 4 mg PO Q6H PRN #20 tablet 11/19/17 dexAMETHasone [Decadron] 4 mg PO DAILY #5 tablet 11/19/17 Cyclobenzaprine [Flexeril] 10 mg PO TID PRN #20 tablet 06/22/19 Hydrocodone/Acetaminophen 1 - 2 each PO Q6H PRN #14 tablet 06/22/19 [Hydrocodon-Acetaminophen 5-325] Hydrocodone/Acetaminophen 1 - 2 each PO Q6H PRN #8 tablet 07/06/19 [Hydrocodon-Acetaminophen 5-325] Ondansetron Odt [Zofran] 4 mg TL Q6H PRN #10 tablet 07/06/19 Doxycycline Hyclate [Vibramycin] 100 mg PO BID #20 capsule 01/19/20 Hydrocodone/Acetaminophen [[place] 1 each PO BID PRN #10 tablet 01/19/20 5-325 Tablet] - Allergies Allergies/Adverse Reactions: Allergies Allergy/AdvReac Type Severity Reaction Status Date / Time latex Allergy Mild Rash Verified 06/22/19 16:53 cat dander Allergy Anaphylaxis Verified 06/22/19 16:53 clindamycin Allergy Unknown Verified 01/19/20 16:13 codeine [Codeine] Allergy Hives Verified 06/22/19 16:53 Horse/Equine Containing Allergy Anaphylaxis Verified 06/22/19 16:53 Products morphine Allergy Hives Verified 06/22/19 16:53 peanut Allergy Anaphylaxis Verified 01/19/20 16:13 Penicillins Allergy Hives Verified 06/22/19 16:53 Sulfa (Sulfonamide Allergy Hives Verified 06/22/19 16:53 Antibiotics) aspirin AdvReac stomach Verified 06/22/19 16:53 sensitivity IV contrast Allergy anaphylaxis Uncoded 06/22/19 16:53 - Social History Does the pt smoke?: Yes Smoking Status: Current every day smoker Does the pt drink ETOH?: No Does the pt have substance abuse?: No - Immunizations Immunizations are current?: Yes - POLST Patient has POLST: No PD ED PE EXPANDED - General General: Alert, In Pain - HEENT HEENT: PERRL, EOMI - Eyes Eyes: PERRL, EOMI - Neck Neck: Supple w/out meningeal sx, No tenderness - Cardiac Cardiac: Regular Rate, Radial strong equal, Femoral strong equal, Pedal strong equal, Cap refill < 2 sec - Respiratory Respiratory: Clear to ausultation damien. No: Distress, Labored - Abdomen Abdomen: Normal Bowel sounds. No: Tender to palpation - Extremities Extremities: Normal - Neuro Neuro: Alert and Oriented X 3, CNII-XII intact, Normal gait, Normal finger nose, Normal speech - GCS Eye Opening: Spontaneous Motor: Obeys Commands Verbal: Oriented Total: 15 Results - Vitals Vitals: Vital Signs - 24 hr 01/19/20 01/19/20 01/19/20 16:08 16:24 17:03 Temperature 36.2 C L 36.6 C Heart Rate 88 80 75 Respiratory 17 16 13 Rate Blood Pressure 119/78 130/84 H 124/79 O2 Saturation 96 98 96 01/19/20 18:18 Temperature Heart Rate 80 Respiratory 15 Rate Blood Pressure 135/87 H O2 Saturation 96 Oxygen O2 Source Room air - EKG (time done) 1708 Rate: Rate (enter#) (61) Rhythm: NSR [place]: Normal Intervals: Normal TN QRS: Normal Ischemia: Non specific changes (t wave flattening anterior leads) Compare to prior EKG: Unchanged from prior EKG Computer interpretation: Agree with computer - Labs Labs: Laboratory Tests 01/19/20 01/19/20 01/19/20 16:50 16:57 16:57 WBC 8.0 RBC 4.87 Hgb 13.4 Hct 40.0 MCV 82.1 MCH 27.5 MCHC 33.5 RDW 13.6 Plt Count 223 MPV 11.2 H Neut # (Auto) 3.8 Lymph # (Auto) 3.1 [place] # (Auto) 0.7 Eos # (Auto) 0.2 Baso # (Auto) 0.1 Absolute Nucleated RBC 0.00 Nucleated RBC % 0.0 Sodium 139 Potassium 3.8 Chloride 104 Carbon Dioxide 23 Anion Gap 12.0 BUN 9 Creatinine 0.8 Estimated GFR (MDRD) 77 L Glucose 108 H Calcium 8.7 Total Bilirubin 0.5 AST 21 ALT 26 Alkaline Phosphatase 95 Troponin I High Sens < 2.3 L Total Protein 6.4 L Albumin 3.5 Globulin 2.9 Albumin/Globulin Ratio 1.2 Lipase 33 HCG, Quant 01/19/20 01/19/20 16:57 17:47 WBC RBC Hgb Hct MCV MCH MCHC RDW Plt Count MPV Neut # (Auto) Lymph # (Auto) E[place] # (Auto) Eos # (Auto) Baso # (Auto) Absolute Nucleated RBC Nucleated RBC % Sodium Potassium Chloride Carbon Dioxide Anion Gap BUN Creatinine Estimated GFR (MDRD) Glucose Calcium Total Bilirubin AST ALT Alkaline Phosphatase Troponin I High Sens < 2.3 L Total Protein Albumin Globulin Albumin/Globulin Ratio Lipase HCG, Quant 7.40 - Rads (name of study) MRA head Radiology: Final report received (No stenosis, occlusion or aneurysm) MRI head Radiology: Final report received (Findings suspicious for left sphenoid sinusitis. No acute intracranial findings) PD MEDICAL DECISION MAKING - ED course Complexity details: reviewed results, re-evaluated patient, considered differential, d/w patient ED course: 49-year-old female presents to the emergency department for evaluation of 4 days of persistent headache. This is in the setting of recent syncopal episode as well as kaleidoscope vision for which she was referred to a neurologist at [facility] Dr. Noyola. Dr. Ni has been trying to obtain MRI/MRA imaging as an outpatient but has thus far been unsuccessful. - Her labs are reviewed in full today. No leukocytosis or significant electrolyte disturbance. The MRA of the head shows no aneurysms. MRA the head showed no acute intracranial findings however it was very suspicious for left sphenoid sinusitis. These findings were discussed at length with the patient. I do believe that the sphenoid sinusitis may be contributing to her recurrent and worsening headaches despite the lack of congestion or fevers. Patient was given 1 g of ceftriaxone here in the emergency department as well as 10 mg of Decadron. She will be discharged With doxycycline for 10 days. She does have a history of penicillin allergy therefore cannot take Augmentin. Given the significant tenderness we will also write a prescription for a limited amount of hydrocodone. Patient was advised to schedule close follow-up with her primary care provider. Emergent and worrisome return precautions were discussed Departure - Departure Disposition: 01 Home, Self Care Clinical Impression: Sphenoid sinusitis Qualifiers: Chronicity: unspecified Qualified Code(s): J32.3 - Chronic sphenoidal sinusitis Headache Qualifiers: Headache type: other headache syndrome Qualified Code(s): G44.89 - Other headache syndrome Condition: Stable Record reviewed to determine appropriate education?: Yes Instructions: ED Sinusitis Abx Tx Follow-Up: Tammy Gallardo PA [Primary Care Provider] - Prescriptions: Hydrocodone/Acetaminophen [[place] 5-325 Tablet] 1 each PO BID PRN #10 tablet PRN Reason: Pain Doxycycline Hyclate [Vibramycin] 100 mg PO BID #20 capsule Comments: Laurel the MRI and MRA of your brain did not show any tumors lesions or aneurysm. The most worrisome finding was likely left sphenoid sinusitis. This type of sinusitis can cause exquisite headaches. I would like you to fill the prescription for the doxycycline and begin taking twice a day for the next 10 days. You may also try and attempt saline nasal rinses to see if that helps with some of the discomfort. You are given a dose of Decadron here in the emergency department which I believe will help with some of the pain and discomfort over the next 24 to 48 hours. I have prescribed a limited amount of hydrocodone for severe pain. Do not drive if taking it. Please discuss this ED visit with your primary care doctor as well as the neurologist. Return to the emergency department if you develop fevers, have worsening symptoms uncontrolled vomiting.
[2020-01-19 17:02] LABS: BASOPHILS # (AUTO) 0.1 10^3/uL (0.0-0.1); BASOPHILS % (AUTO) 0.8 %; EOSINOPHILS # (AUTO) 0.2 10^3/uL (0.0-0.7); EOSINOPHILS % (AUTO) 2.9 %; HGB - HEMOGLOBIN 13.4 g/dL (12.0-16.0); LYMPHOCYTES # (AUTO) 3.1 10^3/uL (1.5-3.5); LYMPHOCYTES % (AUTO) 38.6 %; MEAN CORPUSCULAR HEMOGLOBIN 27.5 pg (27.0-31.0); MEAN CORPUSCULAR HGB CONC 33.5 g/dL (32.0-36.0); MEAN CORPUSCULAR VOLUME 82.1 fL (81.0-99.0); MEAN PLATELET VOLUME 11.2 fL (7.9-10.8); MONOCYTES # (AUTO) 0.7 10^3/uL (0.0-1.0); MONOCYTES % (AUTO) 9.3 %; NEUTROPHILS # (AUTO) 3.8 10^3/uL (1.5-6.6); NEUTROPHILS % (AUTO) 48.1 %; PLT - PLATELET COUNT 223 10^3/uL (130-450); RED BLOOD COUNT 4.87 10^6/uL (4.20-5.40); RED CELL DISTRIBUTION WIDTH 13.6 % (12.0-15.0)
[2020-01-19 17:16] LABS: ALBUMIN 3.5 g/dL (3.2-5.5); ALBUMIN/GLOBULIN RATIO 1.2 (1.0-2.2); BILIRUBIN,TOTAL 0.5 mg/dL (0.2-1.0); CALCIUM 8.7 mg/dL (8.5-10.3); CREATININE 0.8 mg/dL (0.4-1.0); TOTAL PROTEIN 6.4 g/dL (6.7-8.2)
[2020-01-19] MEDS ORDERED: SODIUM CHLORIDE 0.9% 1,000 ML IV STA (18:07)
--- NOTE | 2020-01-19 19:25 | MRI Report ---
PROCEDURE: Angio Brain W/O (MRA) INDICATIONS: headache, eval for aneurysm TECHNIQUE: Noncontrast axial 3-D [id number] MR angiogram, with 3-dimensional maximum intensity projection (M IP) reformats of the internal carotid arteries and posterior circulation then performed. COMPARISON: None. FINDINGS: Image quality: Excellent. Anterior circulation: Intracranial internal carotid arteries demonstrate normal size and intralumina l flow signal. The flow within the paired anterior cerebral arteries is normal and symmetric. The f low within the middle cerebral arteries is normal and symmetric. The anterior communicating artery i s seen. No stenoses, occlusions, or aneurysms. Posterior circulation: Visualized portions of the vertebral arteries demonstrate normal caliber, and join to form a normal appearing basilar artery. The flow within the posterior cerebral arteries is normal and symmetric. No stenoses, occlusions, or aneurysms. IMPRESSION: No stenosis, occlusion, or aneurysm. Reviewed by: Clara Horn MD on 01/19/2020 7:24 PM PST Approved by: Clara Horn MD on 01/19/2020 7:24 PM PST Station ID: [id number]
--- NOTE | 2020-01-19 19:28 | MRI Report ---
PROCEDURE: Brain W/O INDICATIONS: r/o aneurysm TECHNIQUE: Noncontrast axial T1 spin echo, axial T2 fast spin echo, sagittal and axial FLAIR, coronal T2 fast sp in echo, axial gradient echo, axial diffusion and ADC through the brain. COMPARISON: None. FINDINGS: Image quality: Excellent. CSF Spaces: Basal cisterns are patent. No extra-axial fluid collections. Ventricles are normal in size and shape. Brain: No intracranial masses or hemorrhage. Sanchez/white matter interface is normal. Brainstem appe ars normal. Diffusion-weighted images demonstrate no acute ischemic insult. No chronic ischemic ins ults. Normal intravascular flow voids are present. Skull and face: Calvarium has normal marrow signal. Orbits appear normal. Sinuses: Mucosal thickening gas is noted within the left sphenoid sinus. Sinuses and mastoids are oth erwise clear. IMPRESSION: 1. Findings suspicious for left sphenoid sinusitis. 2. No acute intracranial findings. Reviewed by: Clara Horn MD on 01/19/2020 7:27 PM PST Approved by: Clara Horn MD on 01/19/2020 7:27 PM PST Station ID: [id number]
[2020-01-19] MEDS ORDERED: cefTRIAXone 1 GM in SODIUM CHLORIDE 0.9% MINIBAG 100 ML IV STA (19:47)
[2020-01-19] MEDS ORDERED: CHERRY SYRUP 10 ML UDC PO ONE (19:48)
[2020-01-19] MEDS ORDERED: DEXAMETHASONE 10 MG/ML VIAL PO STA (19:48)
[2020-01-19] MEDS ORDERED: cefTRIAXone 1 GM VIAL ONE (20:26)
[2020-01-19 21:16] VITALS: BP 130/78
== END 2020-01-19 21:29 | disposition home or self-care (01) ==
LOC: ED 15:55
DX: J32.3 Chronic sphenoidal sinusitis (principal); G44.89 Other headache syndrome; R07.9 Chest pain, unspecified; Z88.0 Allergy status to penicillin; F17.200 Nicotine dependence, unspecified, uncomplicated
CPT/HCPCS: 36415; 70544; 70551; 80053; 83690; 84484; 84702; 85025; 93005; 96365; 96375; 96376; 99284; A9270; J1170

== ENCOUNTER 2020-01-21 09:43 | Emergency (ER) | payer MEDICAID ==
[2020-01-21 10:16] LABS: BASOPHILS # (AUTO) 0.1 10^3/uL (0.0-0.1); BASOPHILS % (AUTO) 0.4 %; EOSINOPHILS # (AUTO) 0.1 10^3/uL (0.0-0.7); EOSINOPHILS % (AUTO) 0.9 %; HGB - HEMOGLOBIN 13.6 g/dL (12.0-16.0); LYMPHOCYTES # (AUTO) 4.7 10^3/uL (1.5-3.5); LYMPHOCYTES % (AUTO) 33.9 %; MEAN CORPUSCULAR HEMOGLOBIN 27.3 pg (27.0-31.0); MEAN CORPUSCULAR HGB CONC 32.5 g/dL (32.0-36.0); MEAN CORPUSCULAR VOLUME 84.1 fL (81.0-99.0); MEAN PLATELET VOLUME 11.6 fL (7.9-10.8); MONOCYTES # (AUTO) 0.9 10^3/uL (0.0-1.0); MONOCYTES % (AUTO) 6.6 %; NEUTROPHILS # (AUTO) 7.9 10^3/uL (1.5-6.6); NEUTROPHILS % (AUTO) 57.5 %; PLT - PLATELET COUNT 243 10^3/uL (130-450); RED BLOOD COUNT 4.98 10^6/uL (4.20-5.40); RED CELL DISTRIBUTION WIDTH 14.1 % (12.0-15.0); WHITE BLOOD COUNT 13.7 x10^3/uL (4.8-10.8)
--- NOTE | 2020-01-21 10:17 | ED Physician Documentation ---
PD HPI CHEST PAIN - Stated complaint Stated Complaint: CHEST PX/HEAD PX - Chief complaint Chief Complaint: Cardiac - History obtained from History obtained from: Patient - History of Present Illness Timing - onset: Today (had feeling of burning in lower chest and upper abd after taking doxycycline and also some feeling of swelling of throat and face. Had started the abx for sinusitis found on MRI head done for headache. Had some mild sphenoid musocal swelling on the MRI. No accounting for the headache.) Timing - onset during: Rest Timing - duration: Hours Timing - details: Gradual onset (onset soon after doxycycline for sinusitis. Had possible reaction to clndamycin prior to that.), Still present Quality: Tightness Location: Substernal, Epigastric Radiation: No: Back, Abdominal Worsened by: Inspiration Associated symptoms: Shortness of air, Nausea, Feeling faint / dizzy. No: Vomiting, General Weakness Recently seen: Emergency Dept (has had headache for a month and was seen recently with MRI without intracranial findings but some sinus inflammation. Has not had any Rx for headache yet. PCP referring pt to Neurology for that and has appt in February. has prior UC and has had increased abd cramps as well lately since abx.) Review of Systems Constitutional: denies: Fever, Chills Nose: denies: Rhinorrhea / runny nose, Congestion Throat: denies: Sore throat Cardiac: reports: Chest pain / pressure (lower sternal feeling like reflux per pt.) Respiratory: denies: Cough GI: reports: Abdominal Pain, Nausea, Diarrhea. 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, Oophrectomy - Present Medications Home Medications: Ambulatory Orders Medication Instructions Recorded Confirmed Promethazine [Phenergan] 25 mg PO Q4HR PRN 05/03/16 05/05/17 Hydrocodone/Acetaminophen 1 - 2 each PO Q6H PRN #14 tablet 10/25/17 [Hydrocodon-Acetaminophen 5-325] Meloxicam [Mobic] 7.5 mg PO BID PRN #20 tablet 10/25/17 HYDROcodone/ACET 7.5/325 [[place] 1 each PO Q4-6H PRN #25 tablet 11/19/17 7.5/325] Ondansetron HCl [Zofran] 4 mg PO Q6H PRN #20 tablet 11/19/17 dexAMETHasone [Decadron] 4 mg PO DAILY #5 tablet 11/19/17 Cyclobenzaprine [Flexeril] 10 mg PO TID PRN #20 tablet 06/22/19 Hydrocodone/Acetaminophen 1 - 2 each PO Q6H PRN #14 tablet 06/22/19 [Hydrocodon-Acetaminophen 5-325] Hydrocodone/Acetaminophen 1 - 2 each PO Q6H PRN #8 tablet 07/06/19 [Hydrocodon-Acetaminophen 5-325] Ondansetron Odt [Zofran] 4 mg TL Q6H PRN #10 tablet 07/06/19 Doxycycline Hyclate [Vibramycin] 100 mg PO BID #20 capsule 01/19/20 Hydrocodone/Acetaminophen [[place] 1 each PO BID PRN #10 tablet 01/19/20 5-325 Tablet] Dicyclomine [Bentyl] 10 mg PO QID PRN #20 capsule 01/21/20 HYDROcod/ACETAM 5/325 [[place] 5/325] 1 ea PO Q6H PRN #15 tablet 01/21/20 Nortriptyline [Pamelor] 10 mg PO HS #20 capsule 01/21/20 Ondansetron Odt [Zofran] 4 mg TL Q6H PRN #20 tablet 01/21/20 dexAMETHasone [Decadron] 4 mg PO DAILY #7 tablet 01/21/20 - Allergies Allergies/Adverse Reactions: Allergies Allergy/AdvReac Type Severity Reaction Status Date / Time latex Allergy Mild Rash Verified 01/21/20 09:49 cat dander Allergy Anaphylaxis Verified 01/21/20 09:49 clindamycin Allergy Unknown Verified 01/21/20 09:49 codeine [Codeine] Allergy Hives Verified 01/21/20 09:49 Horse/Equine Containing Allergy Anaphylaxis Verified 01/21/20 09:49 Products morphine Allergy Hives Verified 01/21/20 09:49 peanut Allergy Anaphylaxis Verified 01/21/20 09:49 Penicillins Allergy Hives Verified 01/21/20 09:49 Sulfa (Sulfonamide Allergy Hives Verified 01/21/20 09:49 Antibiotics) aspirin AdvReac stomach Verified 01/21/20 09:49 sensitivity IV contrast Allergy anaphylaxis Uncoded 01/21/20 09:49 - Social History Does the pt smoke?: Yes Smoking Status: Current every day smoker Does the pt drink ETOH?: No Does the pt have substance abuse?: No - Immunizations Immunizations are current?: Yes - POLST Patient has POLST: No PD ED PE NORMAL - Vitals Vital signs reviewed: Yes - General General: Alert and oriented X 3, No acute distress, Well developed/nourished - HEENT HEENT: Moist mucous membranes, Pharynx benign - Neck Neck: Supple, no meningeal sign, No adenopathy - Cardiac Cardiac: RRR (mild tachycardia), No murmur - Respiratory Respiratory: Clear bilaterally - Abdomen Abdomen: Normal bowel sounds, Soft, Non distended, No organomegaly, Other (tender mid abdomen without percussion nor rebound tenderness. ) - Female Female : Deferred - Rectal Rectal: Deferred - Back Back: No CVA TTP - Derm Derm: Normal color, Warm and dry - Extremities Extremities: No tenderness to palpate, Normal ROM s pain, No edema, No calf tenderness / cord - Neuro Neuro: Alert and oriented X 3, No motor deficit, Normal speech Eye Opening: Spontaneous Motor: Obeys Commands Verbal: Oriented GCS Score: 15 Results - Vitals Vitals: Oxygen O2 Source Room air - Labs Labs: Laboratory Tests 01/21/20 01/21/20 01/21/20 10:06 10:06 10:06 WBC 13.7 H RBC 4.98 Hgb 13.6 Hct 41.9 MCV 84.1 MCH 27.3 MCHC 32.5 RDW 14.1 Plt Count 243 MPV 11.6 H Neut # (Auto) 7.9 H Lymph # (Auto) 4.7 H Leake # (Auto) 0.9 Eos # (Auto) 0.1 Baso # (Auto) 0.1 Absolute Nucleated RBC 0.00 Nucleated RBC % 0.0 Sodium 141 Potassium 3.3 L Chloride 105 Carbon Dioxide 23 Anion Gap 13.0 BUN 11 Creatinine 0.9 Estimated GFR (MDRD) 67 L Glucose 117 H Calcium 9.3 Total Bilirubin 0.4 AST 20 ALT 28 Alkaline Phosphatase 97 Troponin I High Sens 2.5 C-Reactive Protein Total Protein 7.3 Albumin 3.9 Globulin 3.4 Albumin/Globulin Ratio 1.1 Lipase 38 01/21/20 10:06 WBC RBC Hgb Hct MCV MCH MCHC RDW Plt Count MPV Neut # (Auto) Lymph # (Auto) [place] # (Auto) Eos # (Auto) Baso # (Auto) Absolute Nucleated RBC Nucleated RBC % Sodium Potassium Chloride Carbon Dioxide Anion Gap BUN Creatinine Estimated GFR (MDRD) Glucose Calcium Total Bilirubin AST ALT Alkaline Phosphatase Troponin I High Sens C-Reactive Protein 1.6 H Total Protein Albumin Globulin Albumin/Globulin Ratio Lipase - Rads (name of study) abd CT Radiology: Prelim report reviewed (no acute findings), See rad report chest xray Radiology: Prelim report reviewed (no acute process), See rad report PD MEDICAL DECISION MAKING - ED course Complexity details: considered differential (looking at MRI, is not clearly infectious sinusitis. COnsider antihistamines and steroids. Abx causing side effect and also effect on her UC. ), d/w patient Departure - Departure Disposition: 01 Home, Self Care Clinical Impression: Headache Qualifiers: Headache type: unspecified Headache chronicity pattern: unspecified pattern Intractability: intractable Qualified Code(s): R51.9 - Headache, unspecified Ulcerative colitis Qualifiers: Ulcerative colitis location: unspecified ulcerative colitis location Digestive disease complication type: without complication Qualified Code(s): K51.90 - Ulcerative colitis, unspecified, without complications Abdominal pain Qualifiers: Abdominal location: generalized Qualified Code(s): R10.84 - Generalized abdominal pain Condition: Stable Record reviewed to determine appropriate education?: Yes Follow-Up: Tammy Gallardo PA [Primary Care Provider] - Prescriptions: Dicyclomine [Bentyl] 10 mg PO QID PRN #20 capsule PRN Reason: Abdominal Pain dexAMETHasone [Decadron] 4 mg PO DAILY #7 tablet HYDROcod/ACETAM 5/325 [[place] 5/325] 1 ea PO Q6H PRN #15 tablet PRN Reason: Pain Nortriptyline [Pamelor] 10 mg PO HS #20 capsule Ondansetron Odt [Zofran] 4 mg TL Q6H PRN #20 tablet PRN Reason: Nausea / Vomiting Comments: Fluids. Use the Decadron steroid daily for a week to try to help with the ulcerative colitis and may help with the headache and sinus as well. Nortriptyline 10 mg nightly for the next few weeks to try to help with the headache. Follow-up with the neurologist as planned. For your stomach pains and stool, use dicyclomine to help with cramps and ondansetron for nausea. Add hydrocodone if needed for pains. Recheck if not improving well over the next few days. Follow-up with your primary care. Discharge Date/Time: 01/21/20 14:42
[2020-01-21 10:26] LABS: ALBUMIN 3.9 g/dL (3.2-5.5); ALBUMIN/GLOBULIN RATIO 1.1 (1.0-2.2); BILIRUBIN,TOTAL 0.4 mg/dL (0.2-1.0); CALCIUM 9.3 mg/dL (8.5-10.3); CREATININE 0.9 mg/dL (0.4-1.0); TOTAL PROTEIN 7.3 g/dL (6.7-8.2)
--- NOTE | 2020-01-21 10:43 | XRAY Report ---
PROCEDURE: Chest 1 View X-Ray INDICATIONS: Chest pain TECHNIQUE: One view of the chest was acquired. COMPARISON: 09/08/2019 FINDINGS: Surgical changes and devices: None. Lungs and pleura: No pleural effusions or pneumothorax. Lungs are clear. Mediastinum: Mediastinal contours appear normal. Heart size is normal. Bones and chest wall: No suspicious bony lesions. Overlying soft tissues appear unremarkable. IMPRESSION: No acute cardiopulmonary pathology. Reviewed by: Casey Graham MD on 01/21/2020 9:42 AM [facility] Approved by: Casey Graham MD on 01/21/2020 9:42 AM [facility] Station ID: [id number]
[2020-01-21] MEDS ORDERED: SODIUM CHLORIDE 0.9% 1,000 ML IV STA ×2 (10:46→12:20)
[2020-01-21] MEDS ORDERED: HYDROmorphone 1 MG/ML CARPUJECT IVP STA ×2 (10:46→12:19)
[2020-01-21] MEDS ORDERED: DEXAMETHASONE 10 MG/ML VIAL IVP STA (10:48)
[2020-01-21] MEDS ORDERED: ONDANSETRON 4 MG/2 ML VIAL IVP STA (10:50)
--- NOTE | 2020-01-21 11:59 | CT Report ---
PROCEDURE: Abdomen/Pelvis WO INDICATIONS: mid/lower abd pain for days; h/o UC TECHNIQUE: Noncontrast 5 mm thick sections acquired from the diaphragms to the symphysis. 5 mm coronal and sagi ttal reformats were then performed. For radiation dose reduction, the following was used: automated exposure control, adjustment of mA and/or kV according to patient size. COMPARISON: None. FINDINGS: Image quality: Excellent. ABDOMEN: Lung bases: Atelectasis in both lung bases. No pleural effusion. Heart size is within normal limits. Solid organs: Normal unenhanced CT appearance of the liver, spleen, pancreas, adrenal glands, and kid neys. Gallbladder has been removed. Peritoneum and bowel: No abnormally dilated or thickened loops of bowel. No pericolonic or mesenteric inflammatory changes. Nodes and vessels: No threshold enlarged retroperitoneal or intra-abdominal lymph nodes by CT size cr iteria. IVC and aorta are grossly unremarkable in the absence of IV contrast. Miscellaneous: There is no ventral abdominal wall hernia demonstrated. PELVIS: Genitourinary: Bladder wall thickness is normal. Miscellaneous: No inguinal hernias or adenopathy. Bones: No suspicious bony lesions. No vertebral body compression fractures. IMPRESSION: No acute finding. No ventral hernia or other abdomen to explain pain. Reviewed by: Santy Mendoza MD on 01/21/2020 11:58 AM [facility] Approved by: Santy Mendoza MD on 01/21/2020 11:58 AM PST Station ID: [id number]
[2020-01-21] MEDS ORDERED: PROMETHAZINE INJ 12.5 MG in SODIUM CHLORIDE 0.9% 50 ML IV STA (12:19)
[2020-01-21] MEDS ORDERED: PROCHLORPERAZINE 10 MG/2 ML VIAL IVP STA (12:59)
[2020-01-21] MEDS ORDERED: diphenhydrAMINE INJ 50 MG/ML VIAL IVP STA (13:01)
[2020-01-21 14:29] VITALS: BP 114/75
== END 2020-01-21 14:42 | disposition home or self-care (01) ==
LOC: ED 09:43
DX: R07.89 Other chest pain (principal); K51.90 Ulcerative colitis, unspecified, without complications; R51.9 Headache, unspecified; F17.200 Nicotine dependence, unspecified, uncomplicated; Z88.0 Allergy status to penicillin
CPT/HCPCS: 36415; 71045; 74176; 80053; 83690; 84484; 85025; 86140; 93005; 96361; 96374; 96375; 96376; 99284; J1170; J1200; J7040

== ENCOUNTER 2020-03-30 11:59 | Outpatient (CLI) | payer MEDICAID ==
--- NOTE | 2020-03-30 13:04 | CT Report ---
PROCEDURE: Sinuses INDICATIONS: FACIAL PAIN TECHNIQUE: Noncontrast 3.0 mm axial images acquired from the frontal sinuses to the mid-sella, with coronal and sagittal reformats. For radiation dose reduction, the following was used: automated exposure control , adjustment of mA and/or kV according to patient size. COMPARISON: None. FINDINGS: Image quality: Excellent. Maxillary Sinuses: Moderate mucosal thickening is seen within the maxillary sinuses. Ethmoid Air Cells: No bony remodeling or destruction. Mild scattered mucosal thickening is seen with in the ethmoid air cells. Sphenoid Sinuses: No bony remodeling or destruction. Sinuses are clear. Frontal Sinuses: No bony remodeling or destruction. Sinuses are clear. Ostiomeatal Complexes: Ostiomeatal complexes are patent, yet they are constitutionally narrowed, wit h bilateral Hayden cells Miscellaneous: Visualized intra-orbital contents are normal. There is a left-sided lori bullosa, which demonstrates moderate mucosal thickening within it. There is moderate rightward nasal septal deviation. IMPRESSION: Moderate mucosal thickening is seen within the maxillary sinuses. Mild scattered mucosal thickening is seen within the ethmoid air cells. Constitutionally narrowed ostiomeatal complexes, with bilateral Hayden cells. There is a relatively prominent left-sided lori bullosa, which demonstrates mucosal thickening with in it. There is associated moderate rightward nasal septal deviation. Reviewed by: Toni Ayon MD on 03/30/2020 12:03 PM [place] Approved by: Toni Ayon MD on 03/30/2020 12:03 PM [facility] Station ID: [id number]
--- NOTE | 2020-03-30 17:14 | XRAY Report ---
PROCEDURE: Knee Standing BILAT INDICATIONS: BILAT KNEE JOINT PAIN TECHNIQUE: 2 views of the left knee, and 2 views of the right knee. COMPARISON: X-ray left knee 02/07/2015 FINDINGS: Bones: No acute fractures or dislocations. No suspicious bony lesions. There is an overall appearan ce of minimal to mild bilateral medial compartment narrowing. This is minimally progressive compared to prior exam. No erosions or particular osteophytes are present. Soft tissues: No knee joint effusions. No suspicious soft tissue calcification. IMPRESSION: Minimal early osteoarthritic change of the medial compartments bilaterally. Reviewed by: Sol Brown MD on 03/30/2020 5:13 PM PST Approved by: Sol Brown MD on 03/30/2020 5:13 PM PST Station ID: [id number]
--- NOTE | 2020-03-30 17:15 | XRAY Report ---
PROCEDURE: Tib/Fib BILAT INDICATIONS: BILAT LOWER LEG PAIN TECHNIQUE: 2 views of the tibia and fibula were acquired. COMPARISON: None FINDINGS: Bones: No acute fractures or dislocations. No suspicious bony lesions. There is slight deformity o f the distal left tibia and fibula suggestive of old fracture. Soft tissues: No suspicious soft tissue calcifications or masses. IMPRESSION: No visualized acute fracture or dislocation. However, occult injury cannot be excluded. Recommend angelina rt interval imaging follow-up in 7-10 days as clinically indicated for additional evaluation. Reviewed by: Sol Brown MD on 03/30/2020 5:14 PM PST Approved by: Sol Brown MD on 03/30/2020 5:14 PM PST Station ID: [id number]
== END 2020-03-30 12:00 | disposition home or self-care (01) ==
LOC: DI 11:59
PROVIDERS: ATTEND Otolaryngology
DX: J32.4 Chronic pansinusitis (principal); R51.9 Headache, unspecified; J34.2 Deviated nasal septum; M17.0 Bilateral primary osteoarthritis of knee

== ENCOUNTER 2020-04-12 10:54 | Emergency (ER) | payer MEDICAID ==
--- NOTE | 2020-04-12 11:32 | ED Physician Documentation ---
PD HPI CHEST PAIN - Stated complaint Stated Complaint: L SIDE PX - Chief complaint Chief Complaint: General - History obtained from History obtained from: Patient - History of Present Illness Timing - onset: Today Timing - details: Abrupt onset (she was rolling to side to get up off tanning bed and felt onset sharp left lateral chestwall pain. Hurts with movement and breathing. Pain increasing so came to ER. No recent cough, URI.), Still present Quality: Aching, Sharp, Stabbing, Pain Location: Left chest Radiation: No: Back, Abdominal Associated symptoms: Shortness of air. No: Nausea, Feeling faint / dizzy, Palpitations, Cough Similar symptoms before: Has not had sx before Recently seen: Not recently seen Review of Systems Constitutional: denies: Fever Nose: denies: Rhinorrhea / runny nose, Congestion Throat: denies: Sore throat Cardiac: reports: Chest pain / pressure (local sharp pleuritic pain). 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: Other : Kidney stones HEENT: Chronic sinusitis Psych: Anxiety, Bipolar disorder, Panic attacks, Claustrophobia Musculoskeletal: Osteoporosis Derm: Eczema - Past Surgical History Past Surgical History: Yes General: Cholecystectomy, Appendectomy, Colonoscopy, EGD Ortho: Other /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: Hysterectomy, Oophrectomy - Present Medications Home Medications: Ambulatory Orders Medication Instructions Recorded Confirmed Promethazine [Phenergan] 25 mg PO Q4HR PRN 05/03/16 04/12/20 Acetaminophen [Acetaminophen Extra 1,000 mg PO Q6HR PRN 04/12/20 04/12/20 Strength] Esomeprazole Magnesium [Nexium 20 mg PO DAILY 04/12/20 04/12/20 24Hr] HYDROcod/ACETAM 5/325 [[place] 5/325] 1 ea PO Q6H PRN #18 tablet 04/12/20 tiZANidine [Zanaflex] 4 mg PO Q8H PRN #25 tablet 04/12/20 - Allergies Allergies/Adverse Reactions: Allergies Allergy/AdvReac Type Severity Reaction Status Date / Time latex Allergy Mild Rash Verified 04/12/20 11:02 amitriptyline Allergy Unknown Verified 04/12/20 11:02 baclofen Allergy Unknown Verified 04/12/20 11:02 cat dander Allergy Anaphylaxis Verified 04/12/20 11:02 clindamycin Allergy Unknown Verified 04/12/20 11:02 codeine [Codeine] Allergy Hives Verified 04/12/20 11:02 doxycycline Allergy Unknown Verified 04/12/20 11:02 Horse/Equine Containing Allergy Anaphylaxis Verified 04/12/20 11:02 Products morphine Allergy Hives Verified 04/12/20 11:02 peanut Allergy Anaphylaxis Verified 04/12/20 11:02 Penicillins Allergy Hives Verified 04/12/20 11:02 pollen extracts Allergy Unknown Verified 04/12/20 11:02 Sulfa (Sulfonamide Allergy Hives Verified 04/12/20 11:02 Antibiotics) aspirin AdvReac stomach Verified 04/12/20 11:02 sensitivity IV contrast Allergy anaphylaxis Uncoded 04/12/20 11:02 sunlight Allergy Unknown Uncoded 04/12/20 11:02 - Social History Does the pt smoke?: Yes Smoking Status: Current every day smoker Does the pt drink ETOH?: No Does the pt have substance abuse?: No - Immunizations Immunizations are current?: Yes - POLST Patient has POLST: No PD ED PE NORMAL - Vitals Vital signs reviewed: Yes - General General: Alert and oriented X 3, Well developed/nourished, Other (appears in pain with movement and deep breathign. ) - Neck Neck: Supple, no meningeal sign, No adenopathy - Cardiac Cardiac: RRR, No murmur - Respiratory Respiratory: No respiratory distress, Clear bilaterally, Other (tender left chest wall laterally around ribs 8-9, without crepitance nor deformity. ) - Abdomen Abdomen: Soft, Non tender - Derm Derm: Normal color, Warm and dry - Extremities Extremities: No edema, No calf tenderness / cord - Neuro Neuro: Alert and oriented X 3, No motor deficit, Normal speech Results - Vitals Vitals: Vital Signs - 24 hr 04/12/20 04/12/20 04/12/20 10:59 11:33 13:19 Temperature 36.5 C 36.7 C 36.1 C L Heart Rate 90 84 82 Respiratory 16 16 18 Rate Blood Pressure 142/82 H 109/78 117/83 H O2 Saturation 97 96 96 Oxygen O2 Source Room air - Rads (name of study) chest with ribs Radiology: Prelim report reviewed (no acute findings. ), See rad report PD MEDICAL DECISION MAKING - ED course Complexity details: considered differential (seems musculoskeletal, though concern for PTX. PERC negative for PE risk. No recent cough. No forceful impact. ), d/w patient Departure - Departure Disposition: 01 Home, Self Care Clinical Impression: Chest wall muscle strain Qualifiers: Encounter type: initial encounter Qualified Code(s): S29.011A - Strain of muscle and tendon of front wall of thorax, initial encounter Condition: Stable Record reviewed to determine appropriate education?: Yes Instructions: ED Chest Pain Atypical Unkn Cause Follow-Up: Tammy Oglesby PA-C [Primary Care Provider] - Prescriptions: HYDROcod/ACETAM 5/325 [[place] 5/325] 1 ea PO Q6H PRN #18 tablet PRN Reason: Pain tiZANidine [Zanaflex] 4 mg PO Q8H PRN #25 tablet PRN Reason: Spasms Comments: Your chest x-ray is normal without any signs of collapsed lung or rib injury or such. Presume a muscle strain in the chest wall. Use some ibuprofen or naproxen 2-3 times daily. Add tizanidine muscle relaxant and hydrocodone pain medicine as needed. Activity as tolerated and progress over the next several days. Recheck if not i mproved well over the next several days and resolved by several days to a week. Discharge Date/Time: 04/12/20 13:28
--- NOTE | 2020-04-12 11:38 | XRAY Report ---
PROCEDURE: Ribs w/PA Chest LT INDICATIONS: non traumatic rib pain TECHNIQUE: 2 views of the left ribs were acquired, along with a single view chest. COMPARISON: Chest radiograph dated 01/21/2020 FINDINGS: Surgical changes and devices: None. Bones and chest wall: No fractures or dislocations. No suspicious bony lesions. Overlying soft tis sues appear unremarkable. Lungs and pleura: No pleural effusions or pneumothorax. Lungs appear clear. Mediastinum: Mediastinal contours appear normal. Heart size is normal. IMPRESSION: No displaced left rib fracture or suspicious rib lesion. No acute cardiopulmonary pathology. Reviewed by: Casey Graham MD on 04/12/2020 10:37 AM [facility] Approved by: Casey Graham MD on 04/12/2020 10:37 AM [facility] Station ID: [id number]
[2020-04-12] MEDS ORDERED: KETOROLAC 30 MG/ML VIAL IM STA (11:49)
[2020-04-12] MEDS ORDERED: HYDROmorphone 2 MG/ML VIAL IM STA (11:49)
[2020-04-12 13:19] VITALS: BP 117/83
== END 2020-04-12 13:28 | disposition home or self-care (01) ==
LOC: ED 10:54
DX: S29.011A Strain of muscle and tendon of front wall of thorax, initial encounter (principal); X50.1XXA Overexertion from prolonged static or awkward postures, initial encounter; Y93.89 Activity, other specified; F17.200 Nicotine dependence, unspecified, uncomplicated
CPT/HCPCS: 71101; 96372; 99283; 99284; J1170

== ENCOUNTER 2020-05-18 08:30 | Outpatient (CLI) | payer MEDICAID ==
--- NOTE | 2020-05-18 14:33 | CARDIAC PROCEDURE NOTE ---
DATE OF SERVICE: 05/18/2020 Physician: Mona Lucas MD, [facility] INDICATION: Chest wall pain, acute. CARDIAC RISK FACTORS: Hyperlipidemia, family history of heart disease. DESCRIPTION OF PROCEDURE: After signing informed consent, the patient underwent a Stanley-protocol treadmill stress test with nuclear myocardial perfusion imaging. RESTING HEART RATE: 61. PEAK HEART RATE: 156 (90% predicted maximum heart rate for age). RESTING BLOOD PRESSURE: 115/71. PEAK BLOOD PRESSURE: 162/71. The patient exercised for 7 minutes on a Stanley-protocol treadmill stress test. She achieved a peak heart rate of 156 (90% PMHR) and 8.6 METs. The patient had chest pain rated at 1/10 at rest and this increased to 2/10 at peak exercise, then decreased back to her baseline of 1/10 in recovery. The patient developed mild shortness of breath in stage I, and had moderate shortness of breath in stage II with audible wheezing. The patient rated her perceived exertion at 15/20 at peak on the Edmundo scale. Oxygen saturation was 95-98% on room air throughout the test. RESTING EKG: Normal sinus rhythm, LVH voltage with small Q waves, early R/S transition (suggesting Cor pulmonale). EKG at 1 minute showed new T-wave flattening inferolaterally. EKG at 5 minutes showed T-wave inversions inferiorly, and continued flat T waves laterally. EKG at peak showed T-wave flattening in leads inferiorly, and laterally. SUMMARY: 1. Chest pain was present at rest, suggesting chest wall pain. 2. Abnormal resting EKG, suggestive of cor pulmonale. 3. Wheezing was audible at peak exercise. Consider exercise-induced asthma. 4. Early abnormal EKG changes that return toward baseline as exercise continued; this could represent "walk-through angina." 5. Nuclear images were reported separately and showed: Small fixed perfusion defect in the apex which improved slightly in the prone position which could partially be artifact. The differential includes sequela of a prior small infarct however. IMPRESSION: 1. Abnormal resting EKG and since the patient had shortness of breath and wheezing with exercise, she may have Cor pulmonale. 2. EKG changes in early exercise, improved with further exercise. These findings suggest "walk-through angina." Consider coronary spasm in the setting of angina or possible delayed vasodilation due to CAD. 3. The nuclear images showed abnormal perfusion at the apex. RECOMMENDATIONS: Cardiology referral for possible angiogram. Echo to evaluate the RV and Pulmonary evaluation. cc: Tammy Oglesby PA-C TD: 05/18/2020 14:20 MTDD
--- NOTE | 2020-05-18 16:57 | Nuclear Medicine Report ---
PROCEDURE: Rest and exercise myocardial perfusion SPECT with gated imaging and ejection fraction INDICATIONS: CHEST WALL PAIN RADIOPHARMACEUTICAL: 13.8 mCi Tc-99m Myoview IV at rest and 32.5 mCi Tc-99m Myoview IV at peak exerc ise. [id number] was performed. TECHNIQUE: Radiopharmaceutical was injected at peak stress test, and also at rest. SPECT images wer e obtained. SPECT myocardial perfusion images were displayed in short axis, horizontal long axis, an d vertical long axis views. Gated images were reviewed using [employer] software. COMPARISON: None available. CARDIAC STRESS: A standard Stanley treadmill exercise tolerance test was performed by the patient under the supervision of an attending staff. The patient exercised for 7 minutes and 0 seconds; functional aerobic impair ment (LEANDRA) is 12%. Hemodynamic data: There is normal blood pressure and heart rate response to exercise stress. Patien t achieved 90% of maximum predicted heart rate at peak exercise. Symptoms: Patient reported chest discomfort during exercise. Walk through angina phenomenon was repo rted during the study. EKG: No diagnostic EKG changes of ischemia. FINDINGS: Raw data: There is good myocardial labeling by radiotracer. No significant motion artifacts. Lung- to-heart ratio is borderline elevated at 0.39. Left ventricle function: Gated images demonstrate normal left ventricle wall thickening. No segment al wall motion abnormality. No transient ischemic dilation; TID is 1.1 (normal less than 1.3). The left ventricle resting end-diastolic volume is 62 mL. Left ventricle stress ejection fraction is 76% ; normal values are above 45%. Myocardial perfusion: There is normal relative distribution of activity in the left and right ventri cular myocardium. There is a small fixed myocardial perfusion defect in the apex. This appears decre ased in prominence on prone views with a small region of residual perfusion deficit. IMPRESSION: 1. Probable normal myocardial perfusion images with a small fixed perfusion defect in the apex which appears decreased on prone views suggestive of soft tissue attenuation artifact. The differential inc ludes sequelae of a prior small infarct although no associated wall motion abnormality is identified. 2. Normal left ventricular ejection fraction without segmental wall motion abnormalities. 3. No diagnostic EKG changes of ischemia. Reported walk-through angina phenomenon during cardiac stre ss. The findings are of indeterminate clinical significance and may represent coronary spasm in the s etting of variant angina or possible delayed vasodilation due to coronary artery disease. PQRS ATTESTATIONS: Measure 322 - Is this imaging test primarily performed on a low-risk surgery patient for preoperative evaluation within 30 days preceding their low-risk non-cardiac surgery? Low-risk surgery is defined as cardiac or myocardial infarction less than 1%, including (but not limited to) endoscopic pr ocedures, superficial procedures, cataract surgery, and excisional breast surgery: Answer: No Measure 323 - Is this imaging test performed primarily for the monitoring of an asymptomatic patient who had percutaneous coronary intervention on the visit date or within 2 years of the visit date? An swer: No Measure 324 - Is this imaging test performed primarily for the initial detection and risk assessment on an asymptomatic, low coronary heart disease patient? Low CHD risk definition = clinicians should consider the maximum number of available patient factors used to estimate risk based on [place] (A TP III criteria), typically age, gender, diabetes, smoking status, and use of blood pressure medicati on, and integrate age appropriate estimates for missing elements, such as LDL or standard blood press ure. Answer: No Reviewed by: Sudhakar De Los Santos MD on 05/18/2020 4:56 PM PST Approved by: Sudhakar De Los Santos MD on 05/18/2020 4:56 PM PST Station ID: [id number]
== END 2020-05-18 08:31 | disposition home or self-care (01) ==
LOC: DI 08:30
PROVIDERS: ATTEND Physician Assistant Medical
DX: R07.89 Other chest pain (principal); R94.31 Abnormal electrocardiogram [ECG] [EKG]
CPT/HCPCS: 78452; 93017; A9500

== ENCOUNTER 2020-06-14 08:00 | Outpatient (CLI) | payer MEDICAID ==
[2020-06-14 11:58] LABS: BASOPHILS # (AUTO) 0.1 10^3/uL (0.0-0.1); BASOPHILS % (AUTO) 0.7 %; EOSINOPHILS # (AUTO) 0.4 10^3/uL (0.0-0.7); HCT - HEMATOCRIT 44.7 % (37.0-47.0); HGB - HEMOGLOBIN 14.5 g/dL (12.0-16.0); LYMPHOCYTES # (AUTO) 3.8 10^3/uL (1.5-3.5); LYMPHOCYTES % (AUTO) 41.7 %; MEAN CORPUSCULAR HEMOGLOBIN 27.3 pg (27.0-31.0); MEAN CORPUSCULAR HGB CONC 32.4 g/dL (32.0-36.0); MONOCYTES # (AUTO) 0.8 10^3/uL (0.0-1.0); MONOCYTES % (AUTO) 9.1 %; NEUTROPHILS % (AUTO) 43.8 %; PLT - PLATELET COUNT 234 10^3/uL (130-450); RED BLOOD COUNT 5.32 10^6/uL (4.20-5.40); RED CELL DISTRIBUTION WIDTH 14.1 % (12.0-15.0); WHITE BLOOD COUNT 9.1 x10^3/uL (4.8-10.8)
[2020-06-14 12:22] LABS: SLIDE REVIEW? Indicated
[2020-06-14 12:34] LABS: PLATELET ESTIMATE, MANUAL NORMAL (130-450,000) (NORMAL); PLATELET MORPHOLOGY NORMAL APPEARANCE (NORMAL); RBC MORPHOLOGY (MULTIPLE) NORMAL APPEARANCE (NORMAL)
[2020-06-14 13:24] LABS: ALBUMIN 4.1 g/dL (3.2-5.5); ALBUMIN/GLOBULIN RATIO 1.3 (1.0-2.2); ALKALINE PHOSPHATASE 90 IU/L (42-121); ALT ALANINE AMINOTRANSFERASE 17 IU/L (10-60); AST ASPARTATE AMINOTRANSFERASE 20 IU/L (10-42); BILIRUBIN,TOTAL 0.4 mg/dL (0.2-1.0); BUN - BLOOD UREA NITROGEN 11 mg/dL (6-20); CALCIUM 9.5 mg/dL (8.5-10.3); CARBON DIOXIDE - CO2 21 mmol/L (21-32); CHLORIDE 108 mmol/L (101-111); CHOL/HDL RATIO 7.9 (<4.4); CHOLESTEROL 252 mg/dL; GFR - MDRD 59 (>89); GLUCOSE 105 mg/dL (70-100); HDL CHOLESTEROL 32 mg/dL; LDL CHOLESTEROL,CALCULATED 142 mg/dL; LDL/HDL RATIO 4.4 (<4.4); SODIUM 140 mmol/L (135-145); TOTAL PROTEIN 7.2 g/dL (6.7-8.2); TRIGLYCERIDES 389 mg/dL; VLDL CHOLESTEROL 78 mg/dL
[2020-06-14 13:36] LABS: THYROID STIMULATING HORMONE 3.8 uIU/mL (0.34-5.60)
== END 2020-06-14 23:59 | disposition home or self-care (01) ==
LOC: LAB.WCP 08:00
PROVIDERS: ATTEND Physician Assistant Medical
DX: Z00.00 Encounter for general adult medical examination without abnormal findings (principal)
CPT/HCPCS: 36415; 80053; 80061; 83721; 84443; 85025

== ENCOUNTER 2020-06-22 07:45 | Outpatient (CLI) | payer MEDICAID | END 2020-06-22 07:46 | disposition home or self-care (01) | LOC: DI 07:45 | PROVIDERS: ATTEND Physician Assistant Medical | DX: R07.89 Other chest pain (principal) | CPT/HCPCS: 93306 ==

== ENCOUNTER 2020-09-23 12:51 | Outpatient (CLI) | payer MEDICAID ==
--- NOTE | 2020-09-23 17:22 | Ultrasound Report ---
PROCEDURE: Head or Neck Soft Tissue INDICATIONS: DYSPHAGIA TECHNIQUE: Real time scanning was performed of the neck region of interest, with image documentation . COMPARISON: None. PROCEDURE: Head or Neck Soft Tissue INDICATIONS: DYSPHAGIA TECHNIQUE: Real-time scanning was performed of the thyroid gland, with image documentation. COMPARISON: None FINDINGS: Right: Thyroid lobe measures 6.0 x 1.5 x 1.7 cm, and is homogeneous in echotexture. Left: Thyroid lobe measures 4.5 x 1.5 x 1.2 cm, and is homogenous in echotexture. Isthmus: 0.4 mm thick. Nodule number: One Location: Right middle lobe Size: 1.2 x 0.8 x 1.0 cm. Composition: Solid Echogenicity: Hypoechoic Shape: wider than tall. Margins: Smooth Echogenic foci: None Total points: 4 ACR TI-RADS category: TI-RADS 4 Nodule number: Two Location: Right posterior Size: 1.2 x 0.5 x 0.6 cm. Composition: Solid Echogenicity: Hypoechoic Shape: wider than tall. Margins: Smooth Echogenic foci: None Total points: 4 ACR TI-RADS category: TI-RADS for Nodule number: Three Location: Left posterior Size: 1.6 x 0.7 x 0.8 cm. Composition: Solid Echogenicity: Hypoechoic Shape: wider than tall. Margins: Smooth Echogenic foci: None Total points: 4 ACR TI-RADS category: TI-RADS 4 IMPRESSION: Multiple thyroid nodules, largest is 1.6 cm in the left lobe of the thyroid. Consider FNA ACR TI-RADS definitions and recommendations: TI-RADS 1 (benign): 0 points. FNA not needed. TI-RADS 2 (not suspicious): 2 points. FNA not needed. TI-RADS 3 (mildly suspicious): 3 points. ? FNA if 2.5 cm or larger, follow up if 1.5 cm or larger (at 1, 3, and 5 years). TI-RADS 4 (moderately suspicious): 4-6 points. ? FNA if 1.5 cm or larger, follow up if 1 cm or larger (at 1, 2, 3, and 5 years). TI-RADS 5 (highly suspicious): 7 points or more. ? FNA if 1 cm or larger, follow up if 0.5 cm or larger (every year for 5 years). Reviewed by: Jose Juan Bee MD on 09/23/2020 4:21 PM [facility] Approved by: Jose Juan Bee MD on 09/23/2020 4:21 PM [facility] Station ID: [id number]
== END 2020-09-23 12:52 | disposition home or self-care (01) ==
LOC: DI 12:51
PROVIDERS: ATTEND Physician Assistant Medical
DX: R13.10 Dysphagia, unspecified (principal); E04.2 Nontoxic multinodular goiter

== ENCOUNTER 2020-11-23 12:53 | Outpatient (CLI) | payer MEDICAID ==
--- NOTE | 2020-11-27 09:36 | Mammography Report ---
BILATERAL DIGITAL SCREENING MAMMOGRAM 3D/2D: 11/23/2020 CLINICAL: Routine screening. Comparison is made to exams dated: 08/15/2017 mammogram, 08/29/2010 mammogram, and 04/17/2009 mammogram - [facility]. There are scattered fibroglandular elements in both breasts. No significant masses, calcifications, or other findings are seen in either breast. There has been no significant interval change. IMPRESSION: NEGATIVE There is no mammographic evidence of malignancy. A 1 year screening mammogram is recommended. This exam was interpreted at Station ID: [id number]. NOTE: For mammograms, a report in lay terms will be sent to the patient. Approximately 15% of breast malignancies will not be visualized mammographically. In the management of a palpable breast mass, a negative mammogram must not discourage biopsy of a clinically suspicious lesion. Electronically Signed By: Sudhakar De Los Santos M.D. ddp/penrad:11/23/2020 15:48:51 ACR BI-RADS Category 1: Negative 3341F PARENCHYMAL PATTERN: (A) - The breast(s) demonstrate(s) scattered fibroglandular densities. BI-RADS CATEGORY: (1) - 1 RECOMMENDATION: (ANNUAL) - Recommend routine annual screening mammography. [id number] 1 year screening LATERALITY: (B)
== END 2020-11-23 12:54 | disposition home or self-care (01) ==
LOC: DI.N 12:53
DX: Z12.31 Encounter for screening mammogram for malignant neoplasm of breast (principal)

== ENCOUNTER 2020-12-05 16:00 | Outpatient (CLI) | payer MEDICAID | END 2020-12-05 23:59 | disposition home or self-care (01) | LOC: LAB 16:00 | PROVIDERS: ATTEND Physician Assistant Medical | DX: R31.9 Hematuria, unspecified (principal) | CPT/HCPCS: 87086 ==

== ENCOUNTER 2020-12-06 12:45 | Outpatient (CLI) | payer MEDICAID ==
--- NOTE | 2020-12-06 14:17 | CT Report ---
PROCEDURE: Abdomen/Pelvis WO INDICATIONS: HEMATURIA TECHNIQUE: Noncontrast 5 mm thick sections acquired from the diaphragms to the symphysis. 5 mm coronal and sagi ttal reformats were then performed. For radiation dose reduction, the following was used: automated exposure control, adjustment of mA and/or kV according to patient size. COMPARISON: CT KUB 01/21/2020. FINDINGS: Image quality: Excellent. ABDOMEN: Lung bases: Lung bases are clear. Heart size is normal. Solid organs: Liver and spleen are normal in size. Gallbladder is surgically absent. Orphaned clip near the inferior margin of the right lobe liver, unchanged. Pancreas is normal in contours. No adr enal nodules. Kidneys are normal in size, without hydronephrosis or nephrolithiasis. The previously seen punctate left kidney stone is no longer identified. Peritoneum and bowel: Unenhanced bowel loops demonstrate normal wall thickness and caliber. A few c olonic diverticuli. Appendix is not seen and likely absent. No free fluid or air. Nodes and vessels: No retroperitoneal or mesenteric adenopathy by size criteria. Aorta and inferior vena cava are normal in caliber. Small collateral vein calcifications. Miscellaneous: No ventral hernias. PELVIS: Genitourinary: Bladder is decompressed. No stones. Uterus is absent. Miscellaneous: No inguinal hernias or adenopathy. Bones: No suspicious bony lesions. Small vertebral body spurs. No vertebral body compression fractu res. IMPRESSION: 1. No kidney stones. No hydronephrosis. Of note the previously seen punctate left kidney stone is no longer identified. 2. No free fluid. CT IVP could be considered for further workup for hematuria. Reviewed by: Antony San MD on 12/06/2020 2:16 PM PDT Approved by: Antony San MD on 12/06/2020 2:16 PM PDT Station ID: [id number]
== END 2020-12-06 12:46 | disposition home or self-care (01) ==
LOC: DI 12:45
PROVIDERS: ATTEND Physician Assistant Medical
DX: R31.9 Hematuria, unspecified (principal); M54.9 Dorsalgia, unspecified; R10.32 Left lower quadrant pain

== ENCOUNTER 2021-02-07 13:07 | Outpatient (CLI) | payer MEDICAID ==
[~2021-02-07 13:07] MED LIST: BUFFERED LIDOCAINE 10 ML SYRINGE ONE
--- NOTE | 2021-02-07 18:41 | MRI Report ---
PROCEDURE: Lumbar Spine W/O INDICATIONS: Sacral back pain TECHNIQUE: Noncontrast sagittal T1 spin echo and T2 fast echo, sagittal STIR, axial T1 and T2 fast spin echo thr ough the lumbar spine. In cases with scoliosis, additional coronal T2 fast spin echo may be performe d. COMPARISON: None. FINDINGS: Normal lumbar vertebral body height, alignment, and signal intensity. Discogenic marrow edema at the opposing L5 and S1 endplates with associated Schmorl node formation. No suspicious focal marrow signa l abnormality or bone marrow edema otherwise. Normal position and appearance of the conus. Regional p revertebral and paraspinous soft tissues are within normal limits. The included unenhanced peritoneal visceral structures demonstrate no acute abnormality. From T12-L1 through L3-L4, there are no significant degenerative changes. There is no spinal canal st enosis or neural foraminal narrowing at these levels. At L4-L5, disc bulge flattens the ventral thecal sac with mild displacement of nerve roots into both subarticular zones. Foraminal components of the disc bulge and facet hypertrophy combine to produce m ild bilateral foraminal stenosis. L5-S1, diffuse disc bulge and a superimposed protrusion resulting in mild displacement of the descend ing S1 nerve roots and both subarticular zones. Foraminal components of the disc bulge and facet hype rtrophy combine to produce moderate bilateral neural foraminal stenosis. IMPRESSION: Degenerative changes at L4-L5 and L5-S1 resulting in areas of potential for nerve root impingement as described above. Correlate for corresponding radicular symptoms. Discogenic marrow edema at the opposing L5 and S1 endplates with associated Schmorl node formation. T his is a potential source of nonradicular axial back pain. Reviewed by: Santy Mendoza MD on 02/07/2021 5:40 PM [facility] Approved by: Santy Mendoza MD on 02/07/2021 5:40 PM [facility] Station ID: [id number]
== END 2021-02-07 13:08 | disposition home or self-care (01) ==
LOC: DI 13:07
PROVIDERS: ATTEND Physician Assistant Medical
DX: M47.816 Spondylosis without myelopathy or radiculopathy, lumbar region (principal); M48.061 Spinal stenosis, lumbar region without neurogenic claudication; M51.27 Other intervertebral disc displacement, lumbosacral region; M47.817 Spondylosis without myelopathy or radiculopathy, lumbosacral region; M48.07 Spinal stenosis, lumbosacral region; R93.7 Abnormal findings on diagnostic imaging of other parts of musculoskeletal system; M51.47 Schmorl's nodes, lumbosacral region

== ENCOUNTER 2021-06-18 08:00 | Outpatient (CLI) | payer MEDICAID ==
[2021-06-18 11:44] LABS: BASOPHILS # (AUTO) 0.1 10^3/uL (0.0-0.1); BASOPHILS % (AUTO) 1.1 %; EOSINOPHILS # (AUTO) 0.3 10^3/uL (0.0-0.7); EOSINOPHILS % (AUTO) 3.4 %; HCT - HEMATOCRIT 43.1 % (37.0-47.0); HGB - HEMOGLOBIN 14.5 g/dL (12.0-16.0); LYMPHOCYTES # (AUTO) 3.4 10^3/uL (1.5-3.5); LYMPHOCYTES % (AUTO) 40.7 %; MEAN CORPUSCULAR HEMOGLOBIN 27.4 pg (27.0-31.0); MEAN CORPUSCULAR HGB CONC 33.6 g/dL (32.0-36.0); MEAN CORPUSCULAR VOLUME 81.3 fL (81.0-99.0); MEAN PLATELET VOLUME 11.4 fL (7.9-10.8); MONOCYTES # (AUTO) 0.8 10^3/uL (0.0-1.0); MONOCYTES % (AUTO) 9.8 %; NEUTROPHILS # (AUTO) 3.7 10^3/uL (1.5-6.6); NEUTROPHILS % (AUTO) 44.8 %; PLT - PLATELET COUNT 255 10^3/uL (130-450); RED CELL DISTRIBUTION WIDTH 14.1 % (12.0-15.0); WHITE BLOOD COUNT 8.4 x10^3/uL (4.8-10.8)
[2021-06-18 12:04] LABS: ALBUMIN 4.1 g/dL (3.2-5.5); ALBUMIN/GLOBULIN RATIO 1.1 (1.0-2.2); ALKALINE PHOSPHATASE 86 IU/L (42-121); ALT ALANINE AMINOTRANSFERASE 28 IU/L (10-60); AST ASPARTATE AMINOTRANSFERASE 28 IU/L (10-42); BUN - BLOOD UREA NITROGEN 12 mg/dL (6-20); CALCIUM 9.5 mg/dL (8.5-10.3); CARBON DIOXIDE - CO2 22 mmol/L (21-32); CHLORIDE 104 mmol/L (101-111); CHOL/HDL RATIO 7.6 (<4.4); CHOLESTEROL 275 mg/dL; GFR - MDRD 59 (>89); GLUCOSE 108 mg/dL (70-100); HDL CHOLESTEROL 36 mg/dL; LDL CHOLESTEROL,CALCULATED 176 mg/dL; LDL/HDL RATIO 4.9 (<4.4); POTASSIUM 3.7 mmol/L (3.5-5.0); SODIUM 139 mmol/L (135-145); TOTAL PROTEIN 7.7 g/dL (6.7-8.2); TRIGLYCERIDES 314 mg/dL; VLDL CHOLESTEROL 63 mg/dL
[2021-06-18 12:14] LABS: THYROID STIMULATING HORMONE 4.33 uIU/mL (0.34-5.60)
== END 2021-06-18 23:59 | disposition home or self-care (01) ==
LOC: LAB 08:00
PROVIDERS: ATTEND Physician Assistant Medical
DX: Z00.00 Encounter for general adult medical examination without abnormal findings (principal); E04.2 Nontoxic multinodular goiter
CPT/HCPCS: 36415; 80053; 80061; 83721; 84443; 85025

== ENCOUNTER 2021-12-30 00:26 | Emergency (ER) | payer MEDICAID ==
[2021-12-30 00:56] VITALS: BP 132/80
--- NOTE | 2021-12-30 02:15 | ED Physician Documentation ---
PD HPI HEENT - Stated complaint Stated Complaint: TOOTH PX - Chief complaint Chief Complaint: Heent - History obtained from History obtained from: Patient ( bnv) - History of Present Illness Timing - onset: How many days ago (1-2) Location: Tooth Improves: Nothing Associated symptoms: No: Fever, Facial swelling - Additional information Additional information: c/o tooth pain x 1-2 days, left 1st mandibular molar, episodic for approximately 9 months. She says she has been unable to procure an appointment with a dentist despite months of attempts to do so. 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 : Kidney stones HEENT: Chronic sinusitis Psych: Anxiety, Bipolar disorder, Panic attacks, Claustrophobia Musculoskeletal: Osteoporosis Derm: Eczema - Past Surgical History Past Surgical History: Yes General: Cholecystectomy, Appendectomy, Colonoscopy, EGD Ortho: Other /RENTAL REPRESENTATIVE: Hysterectomy, Oophrectomy - Present Medications Home Medications: Ambulatory Orders Medication Instructions Recorded Confirmed Promethazine [Phenergan] 25 mg PO Q4HR PRN 05/03/16 04/12/20 Acetaminophen [Acetaminophen Extra 1,000 mg PO Q6HR PRN 04/12/20 04/12/20 Strength] Esomeprazole Magnesium [Nexium 20 mg PO DAILY 04/12/20 04/12/20 24Hr] HYDROcod/ACETAM 5/325 [Afton 5/325] 1 ea PO Q6H PRN #18 tablet 04/12/20 tiZANidine [Zanaflex] 4 mg PO Q8H PRN #25 tablet 04/12/20 HYDROcod/ACETAM 5/325 [Afton 5/325] 1 - 2 tablet PO Q6H PRN #14 tablet 12/30/21 cephALEXin [Keflex] 500 mg PO Q6H #28 cap 12/30/21 - Allergies Allergies/Adverse Reactions: Allergies Allergy/AdvReac Type Severity Reaction Status Date / Time latex Allergy Mild Rash Verified 12/30/21 00:56 amitriptyline Allergy Unknown Verified 12/30/21 00:56 baclofen Allergy Unknown Verified 12/30/21 00:56 cat dander Allergy Anaphylaxis Verified 12/30/21 00:56 clindamycin Allergy Unknown Verified 12/30/21 00:56 codeine [Codeine] Allergy Hives Verified 12/30/21 00:56 doxycycline Allergy Unknown Verified 12/30/21 00:56 Horse/Equine Containing Allergy Anaphylaxis Verified 12/30/21 00:56 Products morphine Allergy Hives Verified 12/30/21 00:56 peanut Allergy Anaphylaxis Verified 12/30/21 00:56 Penicillins Allergy Hives Verified 12/30/21 00:56 pollen extracts Allergy Unknown Verified 12/30/21 00:56 Sulfa (Sulfonamide Allergy Hives Verified 12/30/21 00:56 Antibiotics) aspirin AdvReac stomach Verified 12/30/21 00:56 sensitivity IV contrast Allergy anaphylaxis Uncoded 12/30/21 00:56 sunlight Allergy Unknown Uncoded 12/30/21 00:56 - Social History Does the pt smoke?: Yes Smoking Status: Current every day smoker Does the pt drink ETOH?: No Does the pt have substance abuse?: No - Immunizations Immunizations are current?: Yes - POLST Patient has POLST: No PD ED PE NORMAL - Vitals Vital signs reviewed: Yes - General General: Alert and oriented X 3, No acute distress, Well developed/nourished - HEENT HEENT: Moist mucous membranes, Pharynx benign PD ED PE EXPANDED - HEENT HEENT: Other (tenderness to percussion , left mandibular first molar (crown). no gingival erythema, swelling, fluctuance. no facial swelling) Results - Vitals Vitals: Oxygen O2 Source Room air PD MEDICAL DECISION MAKING - ED course Complexity details: considered differential, d/w patient ED course: I am prescribing a short course of short-acting opioid pain medication for this patient. I have reviewed the patients ADVANCED PRACTICE PSYCHIATRIC NURSE and no concerning findings were noted. I have discussed that the opioids are for short term therapy only, and will not be refilled from the ED Departure - Departure Disposition: 01 Home, Self Care Clinical Impression: Pain, dental Condition: Good Instructions: ED Tooth Pain Follow-Up: Tammy Oglesby PA-C [Primary Care Provider] - Prescriptions: cephALEXin [Keflex] 500 mg PO Q6H #28 cap HYDROcod/ACETAM 5/325 [Afton 5/325] 1 - 2 tablet PO Q6H PRN #14 tablet PRN Reason: Pain Comments: Follow up with a dentist. You can also consider following up with your primary care provider until a dentist can see you if the symptoms persist. Prescriptions for an antibiotic (cephalexin) and pain medication (vicodin) have been electronically submitted to [facility] pharmacy in [place]. I am prescribing a short course of narcotic pain medication for you. These are potentially dangerous and addictive medications that should be used carefully. These medications may constipate you. Take an vjyn-jba-gwpfrki stool softener (docusate) twice daily with plenty of water while taking these medications. If you go 24 hours without a bowel movement, take [id number]-[id number] miralax, per package instructions. Do not drink or drive while taking these medications. If you received narcotic or sedating medications while in the emergency department, do not drive for 24 hours. Store this medication in a safe, secure place and out of reach of children. It is a violation of federal law to give or sell this medication to another person or to use in a manner other than prescribed. The ED will not refill narcotic prescriptions, including prescriptions lost or stolen. To dispose of unwanted medications: 1. [facility] [address] [facility] in [place] has a medication drop box. They accept prescription medications (in pill form) Friday through Friday 9:00 a.m. to 5:00 p.m. 2. The [facility] accepts prescription medications (in pill form only) for disposal year round. Call for more information. 3. Contact the [facility] for the next [facility] sponsored prescription drug collection event. , [phone], or [phone]; Discharge Date/Time: 12/30/21 02:51
[2021-12-30] MEDS ORDERED: cephALEXin 250 MG CAPSULE PO STA (02:28)
[2021-12-30] MEDS ORDERED: HYDROcod/ACET 5/325 Prepack 4 PO STA (02:28)
== END 2021-12-30 02:51 | disposition home or self-care (01) ==
LOC: ED 00:26
DX: K08.89 Other specified disorders of teeth and supporting structures (principal); F17.200 Nicotine dependence, unspecified, uncomplicated
CPT/HCPCS: 99282; A9270

== ENCOUNTER 2022-01-17 13:25 | Outpatient (CLI) | payer MEDICAID ==
--- NOTE | 2022-01-21 10:05 | Mammography Report ---
BILATERAL DIGITAL SCREENING MAMMOGRAM 3D/2D: 01/17/2022 CLINICAL: Routine screening. Comparison is made to exams dated: 11/23/2020 mammogram and 08/15/2017 mammogram - [facility]. There are scattered areas of fibroglandular density in both breasts (category b / 25%-50% glandular t issue). No significant masses, calcifications, or other findings are seen in either breast. There has been no significant interval change. IMPRESSION: NEGATIVE There is no mammographic evidence of malignancy. A 1 year screening mammogram is recommended. Based on the Tyrer Cuzick model (a risk assessment model) the patients lifetime risk is 9.6% and her 10 year risk is 2.2%. According to the ACR, ACS, and NCCN guidelines, an annual breast MRI exam greta g with mammogram is recommended if the patients lifetime risk is 20% or greater. This exam was interpreted at Station ID: [id number]. NOTE: For mammograms, a report in lay terms will be sent to the patient. Approximately 15% of breast malignancies will not be visualized mammographically. In the management of a palpable breast mass, a negative mammogram must not discourage biopsy of a clinically suspicious lesion. Electronically Signed By: Vito bañuelos/[email or web address]:01/18/2022 12:12:27 ACR BI-RADS Category 1: Negative 3341F PARENCHYMAL PATTERN: (A) - The breast(s) demonstrate(s) scattered fibroglandular densities. BI-RADS CATEGORY: (1) - 1 RECOMMENDATION: (ANNUAL) - Recommend routine annual screening mammography. [id number] 1 year screening LATERALITY: (B)
== END 2022-01-17 13:26 | disposition home or self-care (01) ==
LOC: DI.N 13:25
DX: Z12.31 Encounter for screening mammogram for malignant neoplasm of breast (principal)

== ENCOUNTER 2022-01-28 10:47 | Outpatient (CLI) | payer MEDICAID ==
[2022-01-28 12:26] LABS: BASOPHILS # (AUTO) 0.1 10^3/uL (0.0-0.1); BASOPHILS % (AUTO) 0.6 %; EOSINOPHILS # (AUTO) 0.2 10^3/uL (0.0-0.7); EOSINOPHILS % (AUTO) 2.3 %; HCT - HEMATOCRIT 46.4 % (37.0-47.0); LYMPHOCYTES # (AUTO) 3.8 10^3/uL (1.5-3.5); LYMPHOCYTES % (AUTO) 39.4 %; MEAN CORPUSCULAR HEMOGLOBIN 26.6 pg (27.0-31.0); MEAN CORPUSCULAR HGB CONC 32.3 g/dL (32.0-36.0); MEAN CORPUSCULAR VOLUME 82.3 fL (81.0-99.0); MEAN PLATELET VOLUME 11.6 fL (7.9-10.8); MONOCYTES # (AUTO) 0.7 10^3/uL (0.0-1.0); MONOCYTES % (AUTO) 7.5 %; NEUTROPHILS # (AUTO) 4.8 10^3/uL (1.5-6.6); PLT - PLATELET COUNT 281 10^3/uL (130-450); RED BLOOD COUNT 5.64 10^6/uL (4.20-5.40); RED CELL DISTRIBUTION WIDTH 13.6 % (12.0-15.0); WHITE BLOOD COUNT 9.7 x10^3/uL (4.8-10.8)
[2022-01-28 12:53] LABS: THYROID STIMULATING HORMONE 4.03 uIU/mL (0.34-5.60)
[2022-01-28 12:55] LABS: ALBUMIN 4.1 g/dL (3.2-5.5); ALBUMIN/GLOBULIN RATIO 1.1 (1.0-2.2); ALKALINE PHOSPHATASE 94 IU/L (42-121); ALT ALANINE AMINOTRANSFERASE 19 IU/L (10-60); AST ASPARTATE AMINOTRANSFERASE 20 IU/L (10-42); BILIRUBIN,TOTAL 0.6 mg/dL (0.2-1.0); BUN - BLOOD UREA NITROGEN 13 mg/dL (6-20); CALCIUM 9.4 mg/dL (8.5-10.3); CARBON DIOXIDE - CO2 25 mmol/L (21-32); CHLORIDE 107 mmol/L (101-111); CHOL/HDL RATIO 8.4 (<4.4); CHOLESTEROL 261 mg/dL; CREATININE 0.9 mg/dL (0.4-1.0); GFR - MDRD 66 (>89); GLUCOSE 101 mg/dL (70-100); HDL CHOLESTEROL 31 mg/dL; LDL CHOLESTEROL,CALCULATED 176 mg/dL; LDL/HDL RATIO 5.7 (<4.4); POTASSIUM 3.9 mmol/L (3.5-5.0); SODIUM 139 mmol/L (135-145); TOTAL PROTEIN 7.8 g/dL (6.7-8.2); TRIGLYCERIDES 272 mg/dL; VLDL CHOLESTEROL 54 mg/dL
== END 2022-01-28 10:48 | disposition home or self-care (01) ==
LOC: LAB.N 10:47
PROVIDERS: ATTEND Physician Assistant Medical
DX: Z00.00 Encounter for general adult medical examination without abnormal findings (principal)
CPT/HCPCS: 36415; 80053; 80061; 83721; 84443; 85025

== ENCOUNTER 2022-02-04 08:11 | Outpatient (CLI) | payer MEDICAID ==
--- NOTE | 2022-02-04 13:04 | DEXA Report ---
PROCEDURE: Dexa Spine and/or Hip INDICATIONS: POST MENOPAUSAL TECHNIQUE: Dual energy x-ray absorptiometry (DXA) was performed on a [employer] System. Regions measur ed are the AP Spine, femoral neck, and if needed forearm. COMPARISON: CT abdomen pelvis 12/06/2020. FINDINGS: Lumbar Spine: Bone Mineral Density 0.852 g/cm/cm, T score -2.7, osteoporosis. No significant change. Left Hip: Bone Mineral Density 0.621 g/cm/cm, T score -3.1, osteoporosis. There is significant interval decrea se compared to 2011. Left Femoral Neck: Bone Mineral Density 0.605 g/cm/cm, T score -3.1, osteoporosis (T score greater or equal to -1.0: NORMAL) (T score from -1.1 to -2.4: OSTEOPENIA) (T score less than or equal to -2.5 to: OSTEOPOROSIS) Impression: Lumbar spine and left hip osteoporosis. Patients with diagnosis of osteoporosis or osteopenia should have regular bone mineral density assess ment. For those eligible for Medicare, routine testing is allowed once every 2 years. Testing frequ ency can be increased for patients who have rapidly progressing disease or for those who are receivin g medical therapy to restore bone mass. Reviewed by: Antony San MD on 02/04/2022 1:03 PM PST Approved by: Antony San MD on 02/04/2022 1:03 PM PST Station ID: [id number]
== END 2022-02-04 08:12 | disposition home or self-care (01) ==
LOC: DI 08:11
PROVIDERS: ATTEND Physician Assistant Medical
DX: M81.0 Age-related osteoporosis without current pathological fracture (principal); Z78.0 Asymptomatic menopausal state

== ENCOUNTER 2022-03-14 10:23 | Emergency (ER) | payer MEDICAID ==
--- NOTE | 2022-03-14 12:04 | ED Physician Documentation ---
PD HPI SKIN - Stated complaint Stated Complaint: ALLERGIC REACTION/SOA - Chief complaint Chief Complaint: Allergic Rx - History obtained from History obtained from: Patient - History of Present Illness Timing - onset: Today, Yesterday Timing - duration: Days (2) Timing - details: Gradual onset, Still present, Waxing and waning Location: [place] Quality / character: Itchy. No: Vesicular, Draining Associated symptoms: Other (had COVID 3 weeks ago for a week, and has been well for 2 weeks. New roommate with cats the past 2 weeks. Pt noted onset of congestion for 2 weeks, but hives now. No other likely allergens, per pt.). No: Fever, Myalgias, N/V/D Similar symptoms before: Diagnosis (has had alleric reactions and even anaphylactic type in the past. Has epi pen but is 2 years. 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 : Kidney stones HEENT: Chronic sinusitis Psych: Anxiety, Bipolar disorder, Panic attacks, Claustrophobia Musculoskeletal: Osteoporosis Derm: Eczema - Past Surgical History Past Surgical History: Yes General: Cholecystectomy, Appendectomy, Colonoscopy, EGD Ortho: 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 /PARK 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: Hysterectomy, Oophrectomy - Present Medications Home Medications: Ambulatory Orders Medication Instructions Recorded Confirmed Promethazine [Phenergan] 25 mg PO Q4HR PRN 05/03/16 04/12/20 Acetaminophen [Acetaminophen Extra 1,000 mg PO Q6HR PRN 04/12/20 04/12/20 Strength] Esomeprazole Magnesium [Nexium 20 mg PO DAILY 04/12/20 04/12/20 24Hr] HYDROcod/ACETAM 5/325 [Basile 5/325] 1 ea PO Q6H PRN #18 tablet 04/12/20 tiZANidine [Zanaflex] 4 mg PO Q8H PRN #25 tablet 04/12/20 HYDROcod/ACETAM 5/325 [Basile 5/325] 1 - 2 tablet PO Q6H PRN #14 tablet 12/30/21 cephALEXin [Keflex] 500 mg PO Q6H #28 cap 12/30/21 Cetirizine [ZyrTEC] 10 mg PO BID #15 tablet 03/14/22 Doxepin [SINEquan] 10 mg PO Q8H PRN #15 cap 03/14/22 EPINEPHrine [Epinephrine] 0.3 mg IJ ONCE PRN #1 each 03/14/22 Famotidine [Pepcid] 20 mg PO BID #15 tablet 03/14/22 dexAMETHasone [Decadron] 4 mg PO DAILY #7 tablet 03/14/22 - Allergies Allergies/Adverse Reactions: Allergies Allergy/AdvReac Type Severity Reaction Status Date / Time latex Allergy Mild Rash Verified 03/14/22 10:47 amitriptyline Allergy Unknown Verified 03/14/22 10:47 baclofen Allergy Unknown Verified 03/14/22 10:47 cat dander Allergy Anaphylaxis Verified 03/14/22 10:47 clindamycin Allergy Unknown Verified 03/14/22 10:47 codeine [Codeine] Allergy Hives Verified 03/14/22 10:47 doxycycline Allergy Unknown Verified 03/14/22 10:47 Horse/Equine Containing Allergy Anaphylaxis Verified 03/14/22 10:47 Products morphine Allergy Hives Verified 03/14/22 10:47 peanut Allergy Anaphylaxis Verified 03/14/22 10:47 Penicillins Allergy Hives Verified 03/14/22 10:47 pollen extracts Allergy Unknown Verified 03/14/22 10:47 Sulfa (Sulfonamide Allergy Hives Verified 03/14/22 10:47 Antibiotics) aspirin AdvReac stomach Verified 03/14/22 10:47 sensitivity IV contrast Allergy anaphylaxis Uncoded 03/14/22 10:47 sunlight Allergy Unknown Uncoded 03/14/22 10:47 - Social History Does the pt smoke?: Yes Smoking Status: Current every day smoker Does the pt drink ETOH?: No Does the pt have substance abuse?: No - Immunizations Immunizations are current?: Yes - POLST Patient has POLST: No PD ED PE NORMAL - Vitals Vital signs reviewed: Yes - General General: Alert and oriented X 3, No acute distress, Well developed/nourished - HEENT HEENT: Moist mucous membranes, Pharynx benign (no swelling of uvula nor tongue. Mild swelling outer lips. ) - Neck Neck: Supple, no meningeal sign, No adenopathy - Cardiac Cardiac: RRR, No murmur - Respiratory Respiratory: Clear bilaterally - Derm Derm: Normal color, Warm and dry, Other (diffuse hives without vesicles. ) Results - Vitals Vitals: Oxygen O2 Source Room air PD Medical Decision Making - ED course Complexity details: considered differential (seems hives. Is not anaphylactic. can treat with antihistamines and steroids. Had tried Benadryl without improvement. Will try other antihistamine, like Doxepin. ), d/w patient Departure - Departure Disposition: Home, Self Care Clinical Impression: Acute urticaria Condition: Stable Record reviewed to determine appropriate education?: Yes Instructions: ED Allergic Reaction General Other Follow-Up: Tammy Oglesby PA-C [Primary Care Provider] - Prescriptions: dexAMETHasone [Decadron] 4 mg PO DAILY #7 tablet EPINEPHrine [Epinephrine] 0.3 mg IJ ONCE PRN #1 each PRN Reason: Anaphylaxis Famotidine [Pepcid] 20 mg PO BID #15 tablet Doxepin [SINEquan] 10 mg PO Q8H PRN #15 cap PRN Reason: Itching Cetirizine [ZyrTEC] 10 mg PO BID #15 tablet Comments: For your allergic reaction, we can use a combination of long-acting H1 and H2 receptor blockers (cetirizine and famotidine) as well as short acting antihistamines of either Benadryl or could try doxepin to help with the itching. Control of the allergic reaction will be sought with the dosing of steroids daily for the next week. This commonly will help after the initial day or so. Continue the antihistamines as needed but I would suggest the long-acting ones for the next week. I wrote a prescription for your EpiPen to be refilled in case you were to need it. I do not believe you need it for this episode currently. I sent your prescriptions to your preferred pharmacy, [facility]. Recheck if not improving well over the next 1 to 2 days and return if worse. Discharge Date/Time: 03/14/22 13:14
[2022-03-14] MEDS ORDERED: CETIRIZINE 10 MG TABLET PO STA (12:24)
[2022-03-14] MEDS ORDERED: CHERRY SYRUP 10 ML UDC PO ONE (12:24)
[2022-03-14] MEDS ORDERED: DOXEPIN 25 MG CAPSULE PO STA (12:24)
[2022-03-14] MEDS ORDERED: DEXAMETHASONE 10 MG/ML VIAL PO STA (12:24)
[2022-03-14] MEDS ORDERED: FAMOTIDINE 20 MG TABLET PO STA (12:24)
[2022-03-14 13:16] VITALS: BP 110/76
== END 2022-03-14 13:14 | disposition home or self-care (01) ==
LOC: ED 10:23
DX: L50.9 Urticaria, unspecified (principal); F17.200 Nicotine dependence, unspecified, uncomplicated
CPT/HCPCS: 99284; A9270

== ENCOUNTER 2022-04-30 10:53 | Outpatient (CLI) | payer MEDICAID ==
[2022-04-30] MEDS ORDERED: ALBUTEROL 1 PUFF INH STA (12:47)
== END 2022-04-30 10:54 | disposition home or self-care (01) ==
LOC: RT 10:53
PROVIDERS: ATTEND Family Medicine
DX: R05.9 Cough, unspecified (principal); Z77.120 Contact with and (suspected) exposure to mold (toxic)
CPT/HCPCS: 94060; 94729

== ENCOUNTER 2022-04-30 11:54 | Outpatient (CLI) | payer MEDICAID ==
--- NOTE | 2022-04-30 16:11 | XRAY Report ---
PROCEDURE: Chest 2 View X-Ray INDICATIONS: COUGH TECHNIQUE: 2 views of the chest were acquired. COMPARISON: 04/12/2020. FINDINGS: Surgical changes and devices: Cystectomy clips Lungs and pleura: No pleural effusions or pneumothorax. Lungs are clear. Mediastinum: Mediastinal contours are normal. Heart size is normal. Bones and chest wall: No suspicious bony abnormalities. Soft tissues appear unremarkable. IMPRESSION: No acute cardiopulmonary disease process. Reviewed by: China Abdalla MD, PhD on 04/30/2022 4:09 PM PST Approved by: China Abdalla MD, PhD on 04/30/2022 4:09 PM PST Station ID: [id number]
== END 2022-04-30 11:55 | disposition home or self-care (01) ==
LOC: DI 11:54
PROVIDERS: ATTEND Family Medicine
DX: R05.9 Cough, unspecified (principal); Z77.120 Contact with and (suspected) exposure to mold (toxic)
CPT/HCPCS: 94060; 94729

== ENCOUNTER 2022-06-06 07:25 | Outpatient (CLI) | payer MEDICAID ==
[2022-06-06 11:48] LABS: BASOPHILS # (AUTO) 0.1 10^3/uL (0.0-0.1); BASOPHILS % (AUTO) 0.5 %; EOSINOPHILS # (AUTO) 0.4 10^3/uL (0.0-0.7); EOSINOPHILS % (AUTO) 2.4 %; HCT - HEMATOCRIT 43.5 % (37.0-47.0); HGB - HEMOGLOBIN 14.4 g/dL (12.0-16.0); LYMPHOCYTES # (AUTO) 5.1 10^3/uL (1.5-3.5); LYMPHOCYTES % (AUTO) 34.4 %; MEAN CORPUSCULAR HEMOGLOBIN 28.2 pg (27.0-31.0); MEAN CORPUSCULAR HGB CONC 33.1 g/dL (32.0-36.0); MEAN CORPUSCULAR VOLUME 85.1 fL (81.0-99.0); MEAN PLATELET VOLUME 12.7 fL (7.9-10.8); MONOCYTES # (AUTO) 1.1 10^3/uL (0.0-1.0); MONOCYTES % (AUTO) 7.2 %; NEUTROPHILS # (AUTO) 8.2 10^3/uL (1.5-6.6); NEUTROPHILS % (AUTO) 55.2 %; PLT - PLATELET COUNT 288 10^3/uL (130-450); RED BLOOD COUNT 5.11 10^6/uL (4.20-5.40); RED CELL DISTRIBUTION WIDTH 14.1 % (12.0-15.0); WHITE BLOOD COUNT 14.8 x10^3/uL (4.8-10.8)
[2022-06-06 12:04] LABS: ALBUMIN 4.1 g/dL (3.2-5.5); ALBUMIN/GLOBULIN RATIO 1.2 (1.0-2.2); ALKALINE PHOSPHATASE 91 IU/L (42-121); ALT ALANINE AMINOTRANSFERASE 36 IU/L (10-60); AST ASPARTATE AMINOTRANSFERASE 28 IU/L (10-42); BILIRUBIN,TOTAL 0.6 mg/dL (0.2-1.0); BUN - BLOOD UREA NITROGEN 13 mg/dL (6-20); CALCIUM 8.9 mg/dL (8.5-10.3); CARBON DIOXIDE - CO2 23 mmol/L (21-32); CHLORIDE 112 mmol/L (101-111); CHOL/HDL RATIO 5.6 (<4.4); CHOLESTEROL 156 mg/dL; CREATININE 0.9 mg/dL (0.4-1.0); GFR - MDRD 66 (>89); GLUCOSE 107 mg/dL (70-100); HDL CHOLESTEROL 28 mg/dL; LDL CHOLESTEROL,CALCULATED 81 mg/dL; LDL/HDL RATIO 2.9 (<4.4); POTASSIUM 3.5 mmol/L (3.5-5.0); SODIUM 141 mmol/L (135-145); TOTAL PROTEIN 7.4 g/dL (6.7-8.2); TRIGLYCERIDES 236 mg/dL; VLDL CHOLESTEROL 47 mg/dL
[2022-06-06 12:36] LABS: PLATELET ESTIMATE, MANUAL NORMAL (130-450,000) (NORMAL); PLATELET MORPHOLOGY NORMAL APPEARANCE (NORMAL); RBC MORPHOLOGY (MULTIPLE) NORMAL APPEARANCE (NORMAL); SLIDE REVIEW? Indicated
== END 2022-06-06 07:26 | disposition home or self-care (01) ==
LOC: LAB.N 07:25
PROVIDERS: ATTEND Family Medicine
DX: R05.9 Cough, unspecified (principal); E78.2 Mixed hyperlipidemia; Z77.120 Contact with and (suspected) exposure to mold (toxic)
CPT/HCPCS: 36415; 80053; 80061; 83721; 85025

== ENCOUNTER 2022-06-14 11:16 | Outpatient (CLI) | payer MEDICAID ==
[2022-06-14 17:50] LABS: BASOPHILS # (AUTO) 0.1 10^3/uL (0.0-0.1); BASOPHILS % (AUTO) 0.7 %; EOSINOPHILS # (AUTO) 0.3 10^3/uL (0.0-0.7); EOSINOPHILS % (AUTO) 2.7 %; HCT - HEMATOCRIT 41.4 % (37.0-47.0); HGB - HEMOGLOBIN 13.6 g/dL (12.0-16.0); LYMPHOCYTES # (AUTO) 3.8 10^3/uL (1.5-3.5); LYMPHOCYTES % (AUTO) 38.5 %; MEAN CORPUSCULAR HEMOGLOBIN 27.9 pg (27.0-31.0); MEAN CORPUSCULAR HGB CONC 32.9 g/dL (32.0-36.0); MEAN PLATELET VOLUME 12.4 fL (7.9-10.8); MONOCYTES # (AUTO) 0.8 10^3/uL (0.0-1.0); MONOCYTES % (AUTO) 7.8 %; NEUTROPHILS # (AUTO) 4.9 10^3/uL (1.5-6.6); PLT - PLATELET COUNT 245 10^3/uL (130-450); RED BLOOD COUNT 4.87 10^6/uL (4.20-5.40); RED CELL DISTRIBUTION WIDTH 14.4 % (12.0-15.0); WHITE BLOOD COUNT 9.7 x10^3/uL (4.8-10.8)
== END 2022-06-14 23:59 | disposition home or self-care (01) ==
LOC: LAB.N 11:16
PROVIDERS: ATTEND Physician Assistant Medical
DX: D72.829 Elevated white blood cell count, unspecified (principal)
CPT/HCPCS: 36415; 85025

== ENCOUNTER 2022-07-15 16:10 | Outpatient (CLI) | payer MEDICAID | END 2022-07-15 16:11 | disposition home or self-care (01) | LOC: NS 16:10 | PROVIDERS: ATTEND Physician Assistant Medical | DX: Z71.3 Dietary counseling and surveillance (principal); K51.90 Ulcerative colitis, unspecified, without complications; K59.09 Other constipation ==

== ENCOUNTER 2022-07-29 12:59 | Outpatient (CLI) | payer MEDICAID | END 2022-07-29 13:00 | disposition home or self-care (01) | LOC: NS 12:59 | PROVIDERS: ATTEND Physician Assistant Medical | DX: Z71.3 Dietary counseling and surveillance (principal); K51.90 Ulcerative colitis, unspecified, without complications; K59.09 Other constipation ==

== ENCOUNTER 2022-11-15 07:14 | Outpatient (CLI) | payer MEDICAID ==
[2022-11-15 12:59] LABS: BASOPHILS # (AUTO) 0.1 10^3/uL (0.0-0.1); BASOPHILS % (AUTO) 0.7 %; EOSINOPHILS # (AUTO) 0.4 10^3/uL (0.0-0.7); EOSINOPHILS % (AUTO) 4.4 %; HCT - HEMATOCRIT 43.2 % (37.0-47.0); HGB - HEMOGLOBIN 14.1 g/dL (12.0-16.0); LYMPHOCYTES # (AUTO) 4.4 10^3/uL (1.5-3.5); LYMPHOCYTES % (AUTO) 45.9 %; MEAN CORPUSCULAR HEMOGLOBIN 27.7 pg (27.0-31.0); MEAN CORPUSCULAR HGB CONC 32.6 g/dL (32.0-36.0); MEAN CORPUSCULAR VOLUME 84.9 fL (81.0-99.0); MEAN PLATELET VOLUME 12.6 fL (7.9-10.8); MONOCYTES # (AUTO) 0.8 10^3/uL (0.0-1.0); MONOCYTES % (AUTO) 8.3 %; NEUTROPHILS # (AUTO) 3.9 10^3/uL (1.5-6.6); NEUTROPHILS % (AUTO) 40.5 %; PLT - PLATELET COUNT 262 10^3/uL (130-450); RED BLOOD COUNT 5.09 10^6/uL (4.20-5.40); WHITE BLOOD COUNT 9.7 x10^3/uL (4.8-10.8)
[2022-11-15 13:12] LABS: BILIRUBIN,URINE NEGATIVE (NEGATIVE); GLUCOSE, URINE (UA) NEGATIVE (NEGATIVE); KETONES,URINE (UA) NEGATIVE (NEGATIVE); LEUKOCYTE ESTERASE, URINE NEGATIVE (NEGATIVE); NITRITE,URINE NEGATIVE (NEGATIVE); OCCULT BLOOD,URINE NEGATIVE (NEGATIVE); PH,URINE 5.5 PH (5.0-7.5); PROTEIN,URINE NEGATIVE (NEGATIVE); UROBILINOGEN,URINE 0.2 (NORMAL) E.U./dL (NORMAL)
[2022-11-15 13:16] LABS: CLARITY,URINE CLEAR (CLEAR)
[2022-11-15 13:27] LABS: ALBUMIN 4.2 g/dL (3.2-5.5); ALBUMIN/GLOBULIN RATIO 1.7 (1.0-2.2); BILIRUBIN,TOTAL 0.4 mg/dL (0.2-1.0); CALCIUM 9.3 mg/dL (8.5-10.3); CREATININE 0.8 mg/dL (0.6-1.3); POTASSIUM 3.7 mmol/L (3.5-4.5); TOTAL PROTEIN 6.7 g/dL (6.4-8.9)
[2022-11-15 13:57] LABS: BACTERIA,URINE Few /HPF (None Seen); CRYSTALS,URINE 0-2 Calcium Oxalate /LPF; RBC,URINE 0-5 /HPF (0-5); SQUAMOUS EPITHELIAL CELL,UR FEW Squamous (<= Few); WBC,URINE 0-3 /HPF (0-5)
== END 2022-11-15 07:15 | disposition home or self-care (01) ==
LOC: LAB.N 07:14
PROVIDERS: ATTEND Nurse Practitioner
DX: R19.7 Diarrhea, unspecified (principal); Z20.5 Contact with and (suspected) exposure to viral hepatitis; R31.9 Hematuria, unspecified
CPT/HCPCS: 36415; 80053; 81001; 85025; 86709; 87086

== ENCOUNTER 2022-11-28 08:00 | Outpatient (CLI) | payer MEDICAID ==
[2022-11-28 18:45] LABS: FECAL OCCULT BLOOD (FIT) NEGATIVE (NEGATIVE)
== END 2022-11-28 23:59 | disposition home or self-care (01) ==
LOC: LAB 08:00
PROVIDERS: ATTEND Nurse Practitioner
DX: R19.7 Diarrhea, unspecified (principal)
CPT/HCPCS: 82274; 87045; 87046; 87177; 87209; 87329; 87427; 87493

== ENCOUNTER 2023-02-10 08:00 | Outpatient (CLI) | payer MEDICAID | END 2023-02-10 23:59 | disposition home or self-care (01) | LOC: LAB.WCP 08:00 | PROVIDERS: ATTEND Physician Assistant Medical | DX: N39.0 Urinary tract infection, site not specified (principal) | CPT/HCPCS: 87086 ==

== ENCOUNTER 2023-02-27 13:34 | Outpatient (CLI) | payer MEDICAID ==
--- NOTE | 2023-02-27 22:43 | CT Report ---
PROCEDURE: ABDOMEN/PELVIS WO INDICATIONS: FLANK PAIN TECHNIQUE: A CT scan of the abdomen and pelvis was performed without the use of intravenous contrast. Images we re recorded and evaluated at appropriate window settings. Reformats: coronal and sagittal. For radiat ion dose reduction, the following was used: automated exposure control, adjustment of mA and/or kV ac cording to patient size. COMPARISON: 12/06/2020 FINDINGS: Image quality: Excellent. Lung bases and heart: Unremarkable. Liver: No solid mass. Gallbladder and biliary tree: Surgically absent gallbladder. Nondilated biliary tree. Spleen: No splenomegaly. Pancreas: Normal pancreas. Adrenals: No adrenal nodule. Kidneys and ureters: No hydronephrosis or nephrolithiasis. No perinephric inflammation. No renal cyst ic lesion which requires follow up. No solid mass. Bowel and peritoneum: Stomach and small bowel are normal. Nonvisualization of the appendix. Mild mura l fatty infiltration in the proximal colon, chronic. No surrounding inflammation or vascular congesti on.. Lymph nodes: No central or retroperitoneal adenopathy. Vessels: Aorta and IVC are normal caliber. PELVIS Reproductive organs: Surgically absent uterus. Ovaries are not visible. Bladder: Decompressed. Pelvic lymph nodes: No pelvic adenopathy by size criteria. Bones: No aggressive osseous abnormality. Other: No significant ventral or inguinal hernia. IMPRESSION: 1. No CT evidence of urinary calcification or obstructive uropathy. 2. No explanation for flank pain. 3. Prior cholecystectomy and hysterectomy. Reviewed by: Janel Romo MD on 02/27/2023 10:42 PM PST Approved by: Janel Romo MD on 02/27/2023 10:42 PM PST Station ID: [id number]
== END 2023-02-27 13:35 | disposition home or self-care (01) ==
LOC: DI 13:34
PROVIDERS: ATTEND Physician Assistant Medical
DX: R10.9 Unspecified abdominal pain (principal); R31.9 Hematuria, unspecified; Z90.49 Acquired absence of other specified parts of digestive tract; Z90.710 Acquired absence of both cervix and uterus

== ENCOUNTER 2023-04-29 11:17 | Outpatient (CLI) | payer MEDICAID ==
--- NOTE | 2023-05-02 08:38 | Mammography Report ---
BILATERAL DIGITAL SCREENING MAMMOGRAM 3D/2D: 04/29/2023 CLINICAL: Routine screening. Comparison is made to exams dated: 01/17/2022 mammogram, 11/23/2020 mammogram, 08/15/2017 mammogram, mammogram, and 04/17/2009 mammogram - [facility]. There are scattered areas of fibroglandular density in both breasts (category b / 25%-50% glandular t issue). No significant masses, calcifications, or other findings are seen in either breast. There has been no significant interval change. IMPRESSION: NEGATIVE There is no mammographic evidence of malignancy. A 1 year screening mammogram is recommended. Based on the Tyrer Cuzick model (a risk assessment model) the patient's lifetime risk is 9.9% and her 10 year risk is 2.4%. According to the ACR, ACS, and NCCN guidelines, an annual breast MRI exam greta g with mammogram is recommended if the patient's lifetime risk is 20% or greater. This exam was interpreted at Station ID: [id number]. NOTE: For mammograms, a report in lay terms will be sent to the patient. Approximately 15% of breast malignancies will not be visualized mammographically. In the management of a palpable breast mass, a negative mammogram must not discourage biopsy of a clinically suspicious lesion. Electronically Signed By: Lalo gonzales/natalee:05/01/2023 09:27:28 letter sent: No_Letter ACR BI-RADS Category 1: Negative 3341F PARENCHYMAL PATTERN: (A) - The breast(s) demonstrate(s) scattered fibroglandular densities. BI-RADS CATEGORY: (1) - 1 Mammogram [id number] 1 year screening LATERALITY: (B)
== END 2023-04-29 11:18 | disposition home or self-care (01) ==
LOC: DI.N 11:17
DX: Z12.31 Encounter for screening mammogram for malignant neoplasm of breast (principal); R92.323 Mammographic fibroglandular density, bilateral breasts

== ENCOUNTER 2023-06-11 12:40 | Outpatient (CLI) | payer MEDICAID ==
--- NOTE | 2023-06-11 17:41 | MRI Report ---
PROCEDURE: Lumbar Spine WO INDICATIONS: LOW BACK PAIN TECHNIQUE: Noncontrast sagittal T1 spin echo and T2 fast echo, sagittal STIR, axial T1 and T2 fast spin echo thr ough the lumbar spine. In cases with scoliosis, additional coronal T2 fast spin echo may be performe d. COMPARISON: 02/07/2021. Correlation is also made with CT, and 02/27/2023. FINDINGS: Image quality: Motion artifact is noted. Alignment and Curvature: There is normal bony alignment. Bone Marrow: Marrow is of normal overall signal. No acute vertebral body compression fractures. Spinal Cord: Conus medullaris terminates at the L1 level. Visualized cord demonstrates normal signa l and size. Paraspinous Soft Tissues: No paravertebral masses. T12-L1: Normal in appearance. L1-L2: Normal in appearance. L2-L3: Normal in appearance. L3-L4: The disc height is relatively well preserved. Mild disc bulge is seen. Minimal disc bulge i s seen. There is an annular fissure seen on the left, as on series 5 image 26 and on series 2 image 1 3. Minimal to mild neuroforaminal narrowing can be seen. No central canal narrowing is seen. The john lar fissure is new compared to the prior examination. L4-L5: The disc height is well-preserved. There is loss of disc signal seen. Mild disc bulge is seen. Note is made of an annular fissure posteriorly. Mild facet hypertrophy is seen. Moderate bilateral neural foraminal narrowing is seen. No central canal narrowing is seen. These degenerati ve changes have progressed when compared to the prior examination. L5-S1: Moderate loss of disc height and signal are seen. Moderate disc bulge is seen, which is ecce ntric to the left. There is an annular fissure seen within the left foraminal region, as on series 5 image 39 and on series 4 image 11. Mild facet hypertrophy is seen. Moderate to severe bilateral neur al foraminal narrowing can be seen, with associated compression upon the exiting nerve roots. Mild central canal narrowing is seen. These degenerative changes have progressed when compared to the p rior examination. IMPRESSION: Lower lumbar spine degenerative changes are seen, which are progressed compared to 2020. Reviewed by: Toni Ayon MD on 06/11/2023 4:39 PM AKDT Approved by: Toni Ayon MD on 06/11/2023 4:39 PM TONY Station ID: [id number]
== END 2023-06-11 12:41 | disposition home or self-care (01) ==
LOC: DI 12:40
PROVIDERS: ATTEND Physician Assistant Medical
DX: M51.36 Other intervertebral disc degeneration, lumbar region (principal); M48.061 Spinal stenosis, lumbar region without neurogenic claudication; M47.816 Spondylosis without myelopathy or radiculopathy, lumbar region; M47.27 Other spondylosis with radiculopathy, lumbosacral region; M48.07 Spinal stenosis, lumbosacral region

== ENCOUNTER 2023-07-26 09:21 | Outpatient (CLI) | payer MEDICAID | END 2023-07-26 23:59 | disposition critical access hospital (66) | LOC: EMS 09:21 | DX: R55 Syncope and collapse (principal); R42 Dizziness and giddiness; R53.1 Weakness; R11.0 Nausea; M54.2 Cervicalgia; R51.9 Headache, unspecified | CPT/HCPCS: A0425; A0429; A0999 ==

== ENCOUNTER 2023-07-26 09:40 | Emergency (ER) | payer MEDICAID ==
--- NOTE | 2023-07-26 10:00 | ED Physician Documentation ---
PD HPI ABD PAIN - Stated complaint Stated Complaint: NEAR SYNCOPE - History obtained from History obtained from: Patient - History of Present Illness Timing - onset: How many weeks ago (1) Timing - duration: Weeks (1) Timing - details: Abrupt onset (The patient has chronic abdominal pain and nausea related to reflux as well as ulcerative colitis and gastritis. Had increased nausea without vomiting last week associated with copious watery diarrhea. Diarrhea has tapered but nausea continues with poor intake. Feeling lightheaded now.), Still present Quality: Cramping, Aching, Pain Radiation: No: Chest, Lower back Improved by: No: Laying still, Vomiting Worsened by: Moving, Palpation. No: Breathing Associated symptoms: Nausea, Near syncope / syncope (she states she felt lightheaded and almost fainted when the pain was worst.). 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: Other : Kidney stones HEENT: Chronic sinusitis Psych: Anxiety, Bipolar disorder, Panic attacks, Claustrophobia Musculoskeletal: Osteoporosis Derm: Eczema - Past Surgical History Past Surgical History: Yes General: Cholecystectomy, Appendectomy, Colonoscopy, EGD Ortho: Other /FINANCIAL PROFESSIONAL: Hysterectomy, Oophrectomy - Present Medications Home Medications: Ambulatory Orders Medication Instructions Recorded Confirmed Promethazine [Phenergan] 25 mg PO Q4HR PRN 05/03/16 07/26/23 Acetaminophen [Acetaminophen Extra 1,000 mg PO Q6HR PRN 04/12/20 07/26/23 Strength] Esomeprazole Magnesium [Nexium 20 mg PO DAILY 04/12/20 07/26/23 24Hr] EPINEPHrine [Epinephrine] 0.3 mg IJ ONCE PRN #1 each 03/14/22 07/26/23 Famotidine [Pepcid] 20 mg PO BID #15 tablet 03/14/22 07/26/23 Alendronate [Fosamax] 70 mg PO Q7D 07/26/23 07/26/23 Atorvastatin [Lipitor] 20 mg PO QPM 07/26/23 07/26/23 HYDROcod/ACETAM 5/325 [[place] 5/325] 1 ea PO Q6H PRN #20 tablet 07/26/23 Promethazine Supp [Phenergan Supp] 25 mg [place] Q6H PRN #5 supp 07/26/23 Promethazine [Phenergan] 25 mg PO Q6H PRN #10 tab 07/26/23 dexAMETHasone [Decadron] 4 mg PO DAILY #5 tablet 07/26/23 - Allergies Allergies/Adverse Reactions: Allergies Allergy/AdvReac Type Severity Reaction Status Date / Time latex Allergy Mild Rash Verified 07/26/23 09:47 amitriptyline Allergy Unknown Verified 07/26/23 09:47 baclofen Allergy Unknown Verified 07/26/23 09:47 cat dander Allergy Anaphylaxis Verified 07/26/23 09:47 clindamycin Allergy Unknown Verified 07/26/23 09:47 codeine [Codeine] Allergy Hives Verified 07/26/23 09:47 doxycycline Allergy Unknown Verified 07/26/23 09:47 Horse/Equine Containing Allergy Anaphylaxis Verified 07/26/23 09:47 Products morphine Allergy Hives Verified 07/26/23 09:47 peanut Allergy Anaphylaxis Verified 07/26/23 09:47 Penicillins Allergy Hives Verified 07/26/23 09:47 pollen extracts Allergy Unknown Verified 07/26/23 09:47 Sulfa (Sulfonamide Allergy Hives Verified 07/26/23 09:47 Antibiotics) aspirin AdvReac stomach Verified 07/26/23 09:47 sensitivity IV contrast Allergy anaphylaxis Uncoded 03/14/22 10:47 sunlight Allergy Unknown Uncoded 03/14/22 10:47 - Social History Does the pt smoke?: Yes Smoking Status: Current every day smoker Does the pt drink ETOH?: No Does the pt have substance abuse?: No - Immunizations Immunizations are current?: Yes - POLST Patient has POLST: No PD ED PE NORMAL - Vitals Vital signs reviewed: Yes - General General: Alert and oriented X 3, Well developed/nourished, Other (appears in sigificant pain on arrival.) Results - Vitals Vitals: Vital Signs - 24 hr 07/26/23 07/26/23 07/26/23 09:47 12:06 14:00 Temperature 36.2 C L Heart Rate 67 56 L 64 Respiratory 14 17 16 Rate Blood Pressure 146/98 H 105/52 L 118/49 L O2 Saturation 97 96 95 Oxygen O2 Source Room air - Labs Labs: Laboratory Tests 07/26/23 07/26/23 07/26/23 10:00 10:00 13:15 WBC 9.5 RBC 5.19 Hgb 13.9 Hct 43.2 MCV 83.2 MCH 26.8 L MCHC 32.2 RDW 13.5 Plt Count 239 MPV 11.8 H Neut # (Auto) 4.5 Lymph # (Auto) 3.8 H [place] # (Auto) 0.9 Eos # (Auto) 0.3 Baso # (Auto) 0.1 Absolute Nucleated RBC 0.00 Nucleated RBC % 0.0 Sodium 139 Potassium 3.8 Chloride 109 Carbon Dioxide 24 Anion Gap 6.0 BUN 11 Creatinine 0.8 Estimated GFR (MDRD) 75 L Glucose 102 Calcium 9.7 Phosphorus 3.6 Magnesium 2.0 Total Bilirubin 0.4 AST 20 ALT 24 Alkaline Phosphatase 71 Total Protein 7.0 Albumin 4.1 Globulin 2.9 Albumin/Globulin Ratio 1.4 Lipase 46 Urine Color YELLOW Urine Clarity HAZY Urine pH 6.0 Ur Specific [place] 1.020 Urine Protein NEGATIVE Urine Glucose (UA) NEGATIVE Urine Ketones NEGATIVE Urine Occult Blood NEGATIVE Urine Nitrite NEGATIVE Urine Bilirubin NEGATIVE Urine Urobilinogen 0.2 (NORMAL) Ur Leukocyte Esterase SMALL H Urine RBC 0-5 Urine WBC 4-5 Ur Squamous Epith Cells NONE SEEN Urine Bacteria Rare Ur Microscopic Review INDICATED Urine Culture Comments INDICATED - Rads (name of study) abd/pelvic CT Relevant Findings:: Prelim report reviewed (no acute findings to explain patients symptoms. ), EMP independent interpretation of test PD Medical Decision Making - ED course Complexity details: reviewed results (normal lipase and LFTs. Normal WBC. otherwise chemistries are good as well. CT scan did not show acute abnormality which excludes some conditions. Still to consider would be IBS/spasms related to UC. No signs of obstruction. Does not appear surgical condition. ), re- evaluated patient (improved pain with IV fluids and dilaudid along iwht antinauseant. ), considered differential (having severe cramps and pains mid to lower abd. History of UC. To get CT to eval for obstruction, perforation, abscess, or other concerns, such as appendix, GB, etc.Labs to eval for lipase and LFs, lytes. ), d/w patient Departure - Departure Disposition: 01 Home, Self Care Clinical Impression: Abdominal pain, Exacerbation of ulcerative colitis Condition: Stable Record reviewed to determine appropriate education?: Yes Instructions: ED Abdominal Pain Female Non-Specific Abdominal Pain Follow-Up: Tammy Oglesby PA-C [Primary Care Provider] - Prescriptions: dexAMETHasone [Decadron] 4 mg PO DAILY #5 tablet HYDROcod/ACETAM 5/325 [[place] 5/325] 1 ea PO Q6H PRN #20 tablet PRN Reason: Pain Promethazine [Phenergan] 25 mg PO Q6H PRN #10 tab PRN Reason: Nausea / Vomiting Promethazine Supp [Phenergan Supp] 25 mg NJ Q6H PRN #5 supp PRN Reason: Nausea / Vomiting Comments: Your CT scan did not show any obvious acute abnormality. Obviously you are still having increased pain and presume it exacerbation of your ulcerative colitis. We can treat this with steroid anti-inflammatory daily for several more days. Use promethazine if needed for nausea. I wrote prescription for both tablet and suppository as needed. Tylenol 500 to 650 mg 4 times daily for pain. To that add the Vicodin every 4-6 hours if needed. I sent your prescriptions to your preferred pharmacy. Be aware of potential constipation with the pain medicines and consider a daily stool softener such as docusate. Recheck if not improved well over the next few days and return if worse. I am prescribing a short course of narcotic pain medication for you. These are potentially dangerous and addictive medications that should be used carefully. These medications may constipate you. Take an [id number] stool softener such as docusate twice daily with plenty of water while taking these medications. If you go 24 hours without a bowel movement, take [id number] MiraLAX, per package instructions. Do not drink or drive while taking these medications. If you received narcotic or sedating medications while in the emergency department do not drive for 24 hours. Store this medication in a safe, secure place and out of reach of children. It is a violation of federal law to give or sell this medication to another p erson or to use in a manner other than prescribed. The ED will not refill narcotic prescriptions, including prescriptions lost or stolen. You can dispose of unwanted medications at the [facility]'s office or at several pharmacies such as [facility]. Forms: PCP List Discharge Date/Time: 07/26/23 14:02
[2023-07-26 10:10] LABS: BASOPHILS # (AUTO) 0.1 10^3/uL (0.0-0.1); BASOPHILS % (AUTO) 0.7 %; EOSINOPHILS # (AUTO) 0.3 10^3/uL (0.0-0.7); EOSINOPHILS % (AUTO) 2.9 %; HCT - HEMATOCRIT 43.2 % (37.0-47.0); HGB - HEMOGLOBIN 13.9 g/dL (12.0-16.0); LYMPHOCYTES # (AUTO) 3.8 10^3/uL (1.5-3.5); LYMPHOCYTES % (AUTO) 39.9 %; MEAN CORPUSCULAR HEMOGLOBIN 26.8 pg (27.0-31.0); MEAN CORPUSCULAR HGB CONC 32.2 g/dL (32.0-36.0); MEAN CORPUSCULAR VOLUME 83.2 fL (81.0-99.0); MEAN PLATELET VOLUME 11.8 fL (7.9-10.8); MONOCYTES # (AUTO) 0.9 10^3/uL (0.0-1.0); MONOCYTES % (AUTO) 9.1 %; NEUTROPHILS # (AUTO) 4.5 10^3/uL (1.5-6.6); NEUTROPHILS % (AUTO) 47.1 %; PLT - PLATELET COUNT 239 10^3/uL (130-450); RED BLOOD COUNT 5.19 10^6/uL (4.20-5.40); RED CELL DISTRIBUTION WIDTH 13.5 % (12.0-15.0); WHITE BLOOD COUNT 9.5 x10^3/uL (4.8-10.8)
[2023-07-26 10:28] LABS: ALBUMIN 4.1 g/dL (3.2-5.5); ALBUMIN/GLOBULIN RATIO 1.4 (1.0-2.2); BILIRUBIN,TOTAL 0.4 mg/dL (0.2-1.0); CALCIUM 9.7 mg/dL (8.5-10.3); CREATININE 0.8 mg/dL (0.6-1.3); PHOSPHORUS 3.6 mg/dL (2.5-5.0); POTASSIUM 3.8 mmol/L (3.5-4.5)
[2023-07-26] MEDS: DROPERIDOL 5 MG/2 ML VIAL IVP STA (10:47)
[2023-07-26] MEDS: FAMOTIDINE 20 MG/2 ML VIAL IVP STA (10:47)
[2023-07-26] MEDS: SODIUM CHLORIDE 0.9% 1,000 ML IV STA (10:48)
[2023-07-26] MEDS: HYDROmorphone 0.5 MG/0.5 ML SYRINGE IVP STA (10:48)
--- NOTE | 2023-07-26 11:19 | CT Report ---
PROCEDURE: Abdomen/Pelvis WO INDICATIONS: Abdominal pain, acute, nonlocalized TECHNIQUE: A CT scan of the abdomen and pelvis was performed without the use of intravenous contrast. Images we re recorded and evaluated at appropriate window settings. Reformats: coronal and sagittal. For radiat ion dose reduction, the following was used: automated exposure control, adjustment of mA and/or kV ac cording to patient size. COMPARISON: None. FINDINGS: Image quality: Diagnostic. Lower chest: Unremarkable. Liver: No contour-deforming mass. Gallbladder and biliary tree: Surgically absent. No biliary dilation, accounting for post-cholecystec bg state. Spleen: No splenomegaly. Pancreas: No pancreatic ductal dilation. Adrenals: No adrenal nodule. Kidneys and ureters: No hydronephrosis. No renal cystic lesion which requires follow up. No solid mas s. Stomach, bowel and peritoneum: No bowel distension. No pathologic free fluid. Lymph nodes: No central or retroperitoneal adenopathy. Vessels: No infrarenal aortic aneurysm. PELVIS Reproductive organs: The uterus is surgically absent. Bladder: No wall thickness, accounting for underdistention. Pelvic lymph nodes: No pelvic adenopathy by size criteria. Bones: No aggressive osseous abnormality. Other: Small fat-containing umbilical hernia. IMPRESSION: No hydronephrosis or obstructing renal stone. No acute findings in the abdomen or pelvis to explain patient's symptoms. Reviewed by: Ferny Mendoza MD on 07/26/2023 10:18 AM TONY Approved by: Ferny Mendoza MD on 07/26/2023 10:18 AM TONY Station ID: [id number]
[2023-07-26] MEDS: HYDROmorphone 1 MG/ML CARPUJECT IVP STA (13:14)
[2023-07-26 13:21] LABS: BILIRUBIN,URINE NEGATIVE (NEGATIVE); CLARITY,URINE HAZY (CLEAR); GLUCOSE, URINE (UA) NEGATIVE (NEGATIVE); KETONES,URINE (UA) NEGATIVE (NEGATIVE); LEUKOCYTE ESTERASE, URINE SMALL (NEGATIVE); NITRITE,URINE NEGATIVE (NEGATIVE); OCCULT BLOOD,URINE NEGATIVE (NEGATIVE); PROTEIN,URINE NEGATIVE (NEGATIVE); UROBILINOGEN,URINE 0.2 (NORMAL) E.U./dL (NORMAL)
[2023-07-26 13:25] LABS: BACTERIA,URINE Rare /HPF (None Seen); RBC,URINE 0-5 /HPF (0-5); SQUAMOUS EPITHELIAL CELL,UR NONE SEEN (<= Few)
[2023-07-26 14:02] VITALS: BP 118/49; O2SAT 95
== END 2023-07-26 14:02 | disposition home or self-care (01) ==
LOC: EDUNIT# → ED 09:40
DX: K51.90 Ulcerative colitis, unspecified, without complications (principal); R55 Syncope and collapse; K21.9 Gastro-esophageal reflux disease without esophagitis; R42 Dizziness and giddiness; J45.909 Unspecified asthma, uncomplicated; F17.200 Nicotine dependence, unspecified, uncomplicated
CPT/HCPCS: 36415; 74176; 80053; 81001; 83690; 83735; 84100; 85025; 87086; 96361; 96374; 96375; 99284; J1170; 81003

== ENCOUNTER 2023-09-05 16:06 | Emergency (ER) | payer MEDICAID ==
--- NOTE | 2023-09-05 17:27 | ED Physician Documentation ---
History of Present Illness - Stated complaint Stated Complaint: FACE SWOLLEN/BLURRED VISION - Chief complaint Chief Complaint: Heent - Additonal information Additional information: 53-year-old female with history of asthma, motion sickness, migraines, diverticulitis, pancreatitis, kidney stones, chronic back pain, bipolar disorder, osteoporosis, hyperemesis presents emergency department for right facial pain and swelling. Patient says that she knows she needs to get all of her teeth pulled but unfortunately the nearest maxillofacial surgeon to the patient is in [place] and she has not been able to make it into appointment because of her lower back pain she has tried multiple times but unable to successfully get over there because of the bumping around in the car. Patient says that she woke today with some right lower mouth pain with a small amount of swelling that has rapidly increased over the last couple hours she is now having a hard time opening closing her mouth as well as difficulty swallowing. She is not having chills but no fevers. 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: Other : Kidney stones HEENT: Chronic sinusitis Psych: Anxiety, Bipolar disorder, Panic attacks, Claustrophobia Musculoskeletal: Osteoporosis Derm: Eczema - Past Surgical History Past Surgical History: Yes General: Cholecystectomy, Appendectomy, Colonoscopy, EGD Ortho: Other /CUT FILER: Hysterectomy, Oophrectomy - Present Medications Home Medications: Ambulatory Orders Medication Instructions Recorded Confirmed Promethazine [Phenergan] 25 mg PO Q4HR PRN 05/03/16 07/26/23 Acetaminophen [Acetaminophen Extra 1,000 mg PO Q6HR PRN 04/12/20 07/26/23 Strength] Esomeprazole Magnesium [Nexium 20 mg PO DAILY 04/12/20 07/26/23 24Hr] EPINEPHrine [Epinephrine] 0.3 mg IJ ONCE PRN #1 each 03/14/22 07/26/23 Famotidine [Pepcid] 20 mg PO BID #15 tablet 03/14/22 07/26/23 Alendronate [Fosamax] 70 mg PO Q7D 07/26/23 07/26/23 Atorvastatin [Lipitor] 20 mg PO QPM 07/26/23 07/26/23 HYDROcod/ACETAM 5/325 [[place] 5/325] 1 ea PO Q6H PRN #20 tablet 07/26/23 Promethazine Supp [Phenergan Supp] 25 mg [place] Q6H PRN #5 supp 07/26/23 Promethazine [Phenergan] 25 mg PO Q6H PRN #10 tab 07/26/23 dexAMETHasone [Decadron] 4 mg PO DAILY #5 tablet 07/26/23 Amox/Clav 875/125 [Augmentin 1 tablet PO Q12H 10 Days #20 tablet 09/05/23 875/125 Tab] - Allergies Allergies/Adverse Reactions: Allergies Allergy/AdvReac Type Severity Reaction Status Date / Time latex Allergy Mild Rash Verified 09/05/23 16:18 amitriptyline Allergy Unknown Verified 09/05/23 16:18 baclofen Allergy Unknown Verified 09/05/23 16:18 cat dander Allergy Anaphylaxis Verified 09/05/23 16:18 clindamycin Allergy Unknown Verified 09/05/23 16:18 codeine [Codeine] Allergy Hives Verified 09/05/23 16:18 doxycycline Allergy Unknown Verified 09/05/23 16:18 Horse/Equine Containing Allergy Anaphylaxis Verified 09/05/23 16:18 Products morphine Allergy Hives Verified 09/05/23 16:18 peanut Allergy Anaphylaxis Verified 09/05/23 16:18 Penicillins Allergy Hives Verified 09/05/23 16:18 pollen extracts Allergy Unknown Verified 09/05/23 16:18 Sulfa (Sulfonamide Allergy Hives Verified 09/05/23 16:18 Antibiotics) aspirin AdvReac stomach Verified 09/05/23 16:18 sensitivity IV contrast Allergy anaphylaxis Uncoded 09/05/23 16:18 sunlight Allergy Unknown Uncoded 09/05/23 16:18 - Social History Does the pt smoke?: Yes Smoking Status: Current every day smoker Does the pt drink ETOH?: No Does the pt have substance abuse?: No - Immunizations Immunizations are current?: Yes - POLST Patient has POLST: No PD ED PE NORMAL - Vitals Vital signs reviewed: Yes - General General: Alert and oriented X 3, No acute distress, Well developed/nourished - HEENT HEENT: Other (Jaw trismus, right facial swelling no mastoiditis) - Neck Neck: No bony TTP, No adenopathy - Cardiac Cardiac: RRR - Derm Derm: Normal color, Warm and dry, No rash PD ED PE EXPANDED - HEENT HEENT: Dental decay, Dental abscess Results - Vitals Vitals: Vital Signs - 24 hr 09/05/23 09/05/23 16:12 18:36 Temperature 36.1 C L Heart Rate 88 79 Respiratory 18 18 Rate Blood Pressure 145/78 H 142/74 H O2 Saturation 97 100 Oxygen O2 Source Room air PD Medical Decision Making - ED course ED course: 53-year-old female presents emergency department for right facial pain and swelling. Patient is experiencing a dental abscess evaluated inside the mouth and she does not have any Adan's angina. She is able to swallow without difficulty although she does endorse that it is difficult to swallow she was able to swallow pills without any difficulty as well as water. Airway is patent speaking in full sentences. Patient has multiple broken teeth inside her mouth and overall poor oral health and dentition given her osteoporosis she needs multiple teeth pulled but unfortunately the nearest dentist is in [place] and patient has had a difficult time getting out there because of her back pain. Patient was stressed the importance of finding a way to get out there to get her dental pain addressed and started on Augmentin she was also given a dental block here in the emergency department as well as some Tylenol return precautions given Augmentin sent to her preferred pharmacy all questions answered safe for discharge Departure - Departure Disposition: 01 Home, Self Care Clinical Impression: Dental abscess Instructions: ED Abscess Dental Prescriptions: Amox/Clav 875/125 [Augmentin 875/125 Tab] 1 tablet PO Q12H 10 Days #20 tablet Comments: Thank you for trusting us with your care. It appears that you have a dental abscess from one of the broken teeth that you have. We have started you on antibiotic called Augmentin here in the emergency department you will take this twice a day for the next 10 days and have sent this prescription to [facility] in [place]. Please [facility] can to get in with the maxillofacial surgeon in [place] to have the broken teeth removed. Please come back to the ER if you are having any worsening symptoms any worsening swelling or pain we have given you a dental block here in the emergency department so this numbness can last up to 12 hours. You can take 1000 mg of Tylenol every 8 hours and 500 mg of naproxen every 12 hours. If you are having any difficulty breathing or any other worsening concerning emergent symptoms please come back to the emergency right away. Forms: PCP List Discharge Date/Time: 09/05/23 18:36
[2023-09-05] MEDS: AMOX/CLAV 875 MG/125 MG TABLET PO STA (18:15)
[2023-09-05] MEDS: ACETAMINOPHEN 325 MG TABLET PO STA (18:16)
[2023-09-05] MEDS: KETOROLAC 30 MG/ML VIAL IVP STA (18:17)
[2023-09-05] MEDS: BUPIVACAINE 0.5% PF 10 ML VIAL SUBQ STA (18:17)
[2023-09-05 18:43] VITALS: BP 142/74; O2SAT 100
== END 2023-09-05 18:36 | disposition home or self-care (01) ==
LOC: ED 16:06
DX: K04.7 Periapical abscess without sinus (principal); M81.0 Age-related osteoporosis without current pathological fracture; M84.48XA Pathological fracture, other site, initial encounter for fracture
CPT/HCPCS: 96374; 99283; 99284; A9270; 80053; 83690; 83735; 85025